=== PATIENT | male | born 1975 | race African-American/Black ===

== ENCOUNTER 2016-03-31 17:03 | Inpatient (IN) | payer BC, MEDICAID ==
[~2016-03-31] VITALS: Ht 180.3 cm; Wt 81.6 kg
[2016-03-31] MEDS ORDERED: IV SET PRIMARY 1 EA INFUS.SET MC ONE ×2 (17:47→22:41)
[2016-03-31] MEDS ORDERED: ONDANSETRON HCL/PF 4 MG/2 ML VIAL ONE ×2 (17:47→18:58)
[2016-03-31] MEDS ORDERED: MORPHINE SULFATE INJ 4 MG/ML DISP.SYRIN ONE (17:47)
[2016-03-31] MEDS ORDERED: IV NS 0.9% 1,000 ML ONE ×2 (17:47→22:41)
[2016-03-31 17:50] LABS: BASOPHILS # (AUTO) 0.1 /CMM (0.0-0.2); BASOPHILS % (AUTO) 0.6 % (0.0-2.0); DIFF TOTAL % 100 %; EOSINOPHILS # (AUTO) 0.1 /CMM (0.0-0.7); EOSINOPHILS % (AUTO) 0.4 % (0.0-6.0); HEMATOCRIT 48 % (39-51); HEMOGLOBIN 15.9 g/dL (13.5-17.5); LYMPHOCYTES # (AUTO) 3.5 /CMM (0.8-4.8); LYMPHOCYTES % (AUTO) 22.8 % (20.0-44.0); MEAN CORPUSCULAR HEMOGLOBIN 33 PG (26.0-33.0); MEAN CORPUSCULAR HGB CONC 33 g/dl (31.0-36.0); MEAN CORPUSCULAR VOLUME 99 fL (80-96); MONOCYTES # (AUTO) 1.5 /CMM (0.1-1.30); MONOCYTES % (AUTO) 9.6 % (2.0-12.0); NEUTROPHILS # (AUTO) 10.2 /CMM (1.8-8.9); NEUTROPHILS % (AUTO) 66.6 % (43.0-81.0); PLATELET COUNT (AUTO) 219 /CMM (150-450); RED BLOOD CELL COUNT(AUTO) 4.84 MIL/uL (4.5-6.0); WHITE BLOOD COUNT (AUTO) 15.4 K/uL (4.3-11.0)
[2016-03-31] MEDS ORDERED: ONDANSETRON HCL/PF 4 MG/2 ML VIAL IVP ONE (18:00)
[2016-03-31] MEDS ORDERED: MORPHINE SULFATE INJ 2 MG/ML DISP.SYRIN IV ONE (18:00)
[2016-03-31] MEDS ORDERED: IV NS 0.9% 1,000 ML BAG IV ONE ×2 (18:00→23:00)
[2016-03-31 18:11] LABS: CALCIUM, SERUM 9.2 mg/dL (8.5-10.1); CREATININE 1.1 mg/dL (0.6-1.3); POTASSIUM 3.7 mmol/L (3.5-5.1)
[2016-03-31 18:18] LABS: ALBUMIN 4.4 g/dL (3.4-5.0); BILIRUBIN,DIRECT 0.2 mg/dL (0.0-0.2); BILIRUBIN,TOTAL 0.6 mg/dL (0.2-1.0); INDIRECT BILIRUBIN 0.4 mg/dL (0.0-1.1); TOTAL PROTEIN, SERUM 8.5 g/dL (6.4-8.2)
[2016-03-31] MEDS ORDERED: MORPHINE SULFATE INJ 2 MG/ML DISP.SYRIN ONE (18:18)
[2016-03-31] MEDS ORDERED: HYDROMORPHONE 1 MG/1 ML DISP.SYRIN ONE ×2 (18:57→22:16)
[2016-03-31] MEDS ORDERED: HYDR-3326 PO (18:58)
[2016-03-31] MEDS ORDERED: TRAZ-144 PO (18:58)
[2016-03-31] MEDS ORDERED: HYDROMORPHONE 1 MG/1 ML DISP.SYRIN IV ONE ×2 (19:00→22:30)
[2016-03-31] MEDS ORDERED: ONDANSETRON HCL/PF 4 MG/2 ML VIAL IV ONE (19:00)
[2016-03-31] MEDS ORDERED: LORAZEPAM INJ 2 MG/ML VIAL ONE (22:42)
[2016-03-31] MEDS ORDERED: LORAZEPAM INJ 2 MG/ML VIAL IV ONE (23:00)
[2016-04-01] MEDS ORDERED: hydrALAZINE HCL IV 20 MG VIAL ONE (00:38)
[2016-04-01] MEDS ORDERED: LORAZEPAM INJ 2 MG/ML VIAL ONE ×3 (00:39→03:02)
[2016-04-01] MEDS ORDERED: hydrALAZINE HCL IV 20 MG VIAL IV ONE (01:00)
[2016-04-01] MEDS ORDERED: LORAZEPAM INJ 2 MG/ML VIAL IV ONE ×3 (01:00→03:30)
[2016-04-01] MEDS ORDERED: AMLODIPINE BESYLATE 5 MG TABLET ONE (01:51)
[2016-04-01] MEDS ORDERED: AMLODIPINE BESYLATE 5 MG TABLET PO ONE (02:00)
[2016-04-01] MEDS ORDERED: HALOPERIDOL LACTATE INJ 5 MG/ML VIAL IM ONE (03:00)
[2016-04-01] MEDS ORDERED: HALOPERIDOL LACTATE INJ 5 MG/ML VIAL ONE (03:02)
[2016-04-01] MEDS ORDERED: MORPHINE SULFATE INJ 2 MG/ML DISP.SYRIN IV ONE (03:30)
[2016-04-01] MEDS ORDERED: ONDANSETRON HCL/PF 4 MG/2 ML VIAL IVP ONE (03:30)
[2016-04-01] MEDS ORDERED: IV NS 0.9% 1,000 ML BAG IV ONE ×2 (03:30→04:00)
[2016-04-01] MEDS ORDERED: IV NS 0.9% 1,000 ML ONE ×2 (04:03→08:25)
[2016-04-01] MEDS ORDERED: IV SET PRIMARY 1 EA INFUS.SET MC ONE (04:03)
[2016-04-01] MEDS ORDERED: HYDROCODONE/APAP 5/325MG 1 EACH TABLET PO PRN (05:00)
[2016-04-01] MEDS ORDERED: ACETAMINOPHEN 325 MG TABLET PO PRN (05:00)
[2016-04-01] MEDS ORDERED: MAGNESIUM HYDROXIDE 30 ML UDC PO PRN (05:00)
[2016-04-01] MEDS ORDERED: IV NS 0.9% 1,000 ML IV ONE (05:00)
[2016-04-01] MEDS ORDERED: Z GUARD REMEDY 2 OZ OINT TP PRN (05:00)
[2016-04-01] MEDS ORDERED: ONDANSETRON HCL/PF 4 MG/2 ML VIAL IVP PRN (05:00)
[2016-04-01] MEDS ORDERED: MAG HYDROX/AL HYDROX/SIMETH 30 ML UDC PO PRN (05:00)
[2016-04-01] MEDS ORDERED: ZOLPIDEM TARTRATE 5 MG TABLET PO PRN (05:00)
[2016-04-01] MEDS ORDERED: LORAZEPAM INJ 2 MG/ML VIAL IV PRN (05:00)
[2016-04-01] MEDS ORDERED: HYDROMORPHONE 1 MG/1 ML DISP.SYRIN ONE ×2 (05:07→14:41)
[2016-04-01] MEDS ORDERED: HYDROMORPHONE 1 MG/1 ML DISP.SYRIN IV ONE ×2 (05:30→15:00)
[2016-04-01] MEDS ORDERED: IV SET PRIMARY PUMP SET 1 EA INFUS.SET MC ONE (08:25)
[2016-04-01 09:07] LABS: KETONES,URINE NEGATIVE (NEGATIVE); LEUKOCYTE ESTERASE ,URINE NEGATIVE (NEGATIVE)
[2016-04-01 09:23] LABS: ADD UA MICROSCOPIC YES
[2016-04-01 09:42] LABS: ADD URINE CULTURE NO; WBC,URINE NONE SEEN /HPF (0-3)
[2016-04-01 09:43] LABS: MUCUS,URINE Rare /LPF (None Seen)
[2016-04-01] MEDS ORDERED: LISINOPRIL (20MG) 20 MG TABLET PO SCH (15:00)
[2016-04-01 20:00] VITALS: BP 136/92
[2016-04-01] MEDS: MORPHINE SULFATE INJ 2 MG/ML DISP.SYRIN IV PRN (21:42)
[2016-04-01] MEDS: TRAZODONE 50 MG TABLET PO SCH (22:49)
[2016-04-02] VITALS (7 sets, daily range): BP systolic 120–148; BP diastolic 69–90
[2016-04-02] MEDS ORDERED: IV NS 0.9% 1,000 ML ONE ×2 (02:42→20:56)
[2016-04-02] MEDS ORDERED: IV SET PRIMARY PUMP SET 1 EA INFUS.SET MC ONE ×2 (02:42→20:56)
[2016-04-02] MEDS ORDERED: IV NS 0.9% 1,000 ML BAG IV SCH (03:00)
[2016-04-02] MEDS ORDERED: IV NS 0.9% 500 ML IV ONE (03:00)
[2016-04-02] MEDS ORDERED: ATENOLOL 25 MG TABLET ONE (04:04)
[2016-04-02] MEDS: ATENOLOL 25 MG TABLET PO SCH ×2 (04:12→09:00)
[2016-04-02 07:39] LABS: BASOPHILS % (AUTO) 0.1 % (0.0-2.0); DIFF TOTAL % 100 %; EOSINOPHILS # (AUTO) 0.1 /CMM (0.0-0.7); EOSINOPHILS % (AUTO) 0.3 % (0.0-6.0); HEMATOCRIT 44 % (39-51); HEMOGLOBIN 14.5 g/dL (13.5-17.5); LYMPHOCYTES % (AUTO) 4.4 % (20.0-44.0); MEAN CORPUSCULAR HEMOGLOBIN 32 PG (26.0-33.0); MEAN CORPUSCULAR HGB CONC 33 g/dl (31.0-36.0); MEAN CORPUSCULAR VOLUME 97 fL (80-96); MONOCYTES # (AUTO) 1.1 /CMM (0.1-1.30); MONOCYTES % (AUTO) 4.8 % (2.0-12.0); NEUTROPHILS # (AUTO) 21.4 /CMM (1.8-8.9); NEUTROPHILS % (AUTO) 90.4 % (43.0-81.0); PLATELET COUNT (AUTO) 138 /CMM (150-450); WHITE BLOOD COUNT (AUTO) 23.6 K/uL (4.3-11.0)
[2016-04-02 08:09] LABS: CALCIUM, SERUM 8.4 mg/dL (8.5-10.1); CREATININE 1.5 mg/dL (0.6-1.3); PHOSPHORUS 2.7 mg/dL (2.5-4.9); POTASSIUM 3.6 mmol/L (3.5-5.1)
[2016-04-02] MEDS ORDERED: SECONDARY IV SET 1 EA INFUS.SET MC ONE (12:42)
[2016-04-02] MEDS: Magnesium 1GM/D5W 100ML PREMIX 100 ML IV SCH ×2 (13:40→14:59)
[2016-04-02] MEDS: MORPHINE SULFATE INJ 2 MG/ML DISP.SYRIN IV PRN (20:04)
[2016-04-02] MEDS: TRAZODONE 50 MG TABLET PO SCH (21:08)
[2016-04-02] MEDS: IV NS 0.9% 1,000 ML IV SCH (21:08)
[2016-04-03] VITALS (8 sets, daily range): BP systolic 115–127; BP diastolic 74–84
[2016-04-03] MEDS ORDERED: IV NS 0.9% 1,000 ML ONE (06:55)
[2016-04-03] MEDS: IV NS 0.9% 1,000 ML IV SCH ×2 (07:00→17:23)
[2016-04-03 07:04] LABS: BASOPHILS % (AUTO) 0.2 % (0.0-2.0); DIFF TOTAL % 100 %; EOSINOPHILS # (AUTO) 0.2 /CMM (0.0-0.7); EOSINOPHILS % (AUTO) 1.1 % (0.0-6.0); HEMATOCRIT 37 % (39-51); HEMOGLOBIN 12.2 g/dL (13.5-17.5); LYMPHOCYTES # (AUTO) 1.5 /CMM (0.8-4.8); MEAN CORPUSCULAR HEMOGLOBIN 32 PG (26.0-33.0); MEAN CORPUSCULAR HGB CONC 33 g/dl (31.0-36.0); MEAN CORPUSCULAR VOLUME 98 fL (80-96); MONOCYTES # (AUTO) 0.7 /CMM (0.1-1.30); MONOCYTES % (AUTO) 4.3 % (2.0-12.0); NEUTROPHILS # (AUTO) 14.5 /CMM (1.8-8.9); NEUTROPHILS % (AUTO) 85.4 % (43.0-81.0); PLATELET COUNT (AUTO) 115 /CMM (150-450); RED BLOOD CELL COUNT(AUTO) 3.76 MIL/uL (4.5-6.0)
[2016-04-03] MEDS: ATENOLOL 25 MG TABLET PO SCH (08:40)
[2016-04-03] MEDS: MORPHINE SULFATE INJ 2 MG/ML DISP.SYRIN IV PRN ×2 (08:49→20:33)
[2016-04-03 09:36] LABS: BAND % (MANUAL) 3 % (0.0-5.0); EOSINOPHILS % (MANUAL) 4 % (0-4); LYMPHOCYTES % (MANUAL) 10 % (16-48); PLATELET ESTIMATE DECREASED
[2016-04-03] MEDS ORDERED: SECONDARY IV SET 1 EA INFUS.SET MC ONE (11:04)
[2016-04-03] MEDS: Magnesium 1GM/D5W 100ML PREMIX 100 ML IV SCH ×2 (11:12→12:37)
[2016-04-03] MEDS ORDERED: Magnesium 1GM/D5W 100ML PREMIX 100 ML IV SCH (13:00)
[2016-04-03] MEDS: TRAZODONE 50 MG TABLET PO SCH (22:29)
[2016-04-04 00:20] VITALS: BP 148/87
[2016-04-04] MEDS: IV NS 0.9% 1,000 ML IV SCH ×2 (03:00→13:00)
[2016-04-04 04:24] VITALS: BP 125/76
[2016-04-04 06:59] VITALS: BP 128/83
[2016-04-04 08:04] VITALS: BP 129/83
[2016-04-04] MEDS: ATENOLOL 25 MG TABLET PO SCH (08:04)
== END 2016-04-04 15:33 | disposition home or self-care (01) | DRG 282 ==
LOC: ER 17:06 → TELE 04-01 15:13
PROVIDERS: ADMIT Family Medicine; ATTEND Family Medicine
DX: K85.20 Alcohol induced acute pancreatitis without necrosis or infection (principal); D69.6 Thrombocytopenia, unspecified; E78.5 Hyperlipidemia, unspecified; F10.10 Alcohol abuse, uncomplicated; E83.42 Hypomagnesemia; F17.210 Nicotine dependence, cigarettes, uncomplicated; I10 Essential (primary) hypertension; Z90.49 Acquired absence of other specified parts of digestive tract; D72.829 Elevated white blood cell count, unspecified; Z71.41 Alcohol abuse counseling and surveillance of alcoholic
CPT/HCPCS: 36415; 80048-TC; 80061-TC; 80076-TC; 81000-TC; 83690-TC; 83735-TC; 84100-TC; 85025-TC; 87040-TC; 87081-TC; A4606; J0360; J1170; J1630; J2060; J2270; J2405; J3475; J7030; J7040; Z7610

== ENCOUNTER 2016-08-18 17:41 | Inpatient (IN) | payer MEDICAID ==
[~2016-08-18] VITALS: Ht 177.8 cm; Wt 76.7 kg
[~2016-08-18 17:41] MED LIST: TRAZ-144 PO
--- NOTE | 2016-08-18 17:50 | NUR ---
PT BIBA FOR MID ABD PAIN WITH N/V SINCE 399 TODAY. REPORTS ETOH ABUSE, HISTORY OF PANCREATITIS NOTED. AAOX3. HVAC ENGINEERING TECHNICIAN AT BS FOR EVAL. VSS. SAFETY AND COMFORT MEASURES PROVIDED. WILL MONITOR.
[2016-08-18] MEDS ORDERED: ONDANSETRON HCL/PF 4 MG/2 ML VIAL ONE (17:51)
[2016-08-18] MEDS ORDERED: IV NS 0.9% 1,000 ML ONE (17:51)
[2016-08-18] MEDS ORDERED: IV SET PRIMARY 1 EA INFUS.SET MC ONE (17:51)
[2016-08-18] MEDS ORDERED: HYDROMORPHONE 1 MG/1 ML DISP.SYRIN ONE (17:51)
[2016-08-18 17:56] LABS: BASOPHILS # (AUTO) 0.1 /CMM (0.0-0.2); BASOPHILS % (AUTO) 0.5 % (0.0-2.0); EOSINOPHILS % (AUTO) 0.1 % (0.0-6.0); HEMATOCRIT 46 % (39-51); HEMOGLOBIN 15.5 g/dL (13.5-17.5); LYMPHOCYTES # (AUTO) 0.5 /CMM (0.8-4.8); LYMPHOCYTES % (AUTO) 2.3 % (20.0-44.0); MEAN CORPUSCULAR HEMOGLOBIN 32 PG (26.0-33.0); MEAN CORPUSCULAR HGB CONC 34 g/dl (31.0-36.0); MEAN CORPUSCULAR VOLUME 95 fL (80-96); MONOCYTES # (AUTO) 0.6 /CMM (0.1-1.30); MONOCYTES % (AUTO) 2.8 % (2.0-12.0); NEUTROPHILS # (AUTO) 20.4 /CMM (1.8-8.9); NEUTROPHILS % (AUTO) 94.3 % (43.0-81.0); PLATELET COUNT (AUTO) 179 /CMM (150-450); RDW COEFFICIENT OF VARIATION 13.2 (11.5-15.0); RED BLOOD CELL COUNT(AUTO) 4.79 MIL/uL (4.5-6.0); WHITE BLOOD COUNT (AUTO) 21.6 K/uL (4.3-11.0)
[2016-08-18] MEDS ORDERED: IV NS 0.9% 1,000 ML BAG IV ONE (18:00)
[2016-08-18] MEDS ORDERED: ONDANSETRON HCL/PF 4 MG/2 ML VIAL IVP ONE (18:00)
[2016-08-18] MEDS ORDERED: HYDROMORPHONE INJ 2 MG/ML DISP.SYRIN IV ONE (18:00)
--- NOTE | 2016-08-18 18:00 | NUR ---
IV ACCESS STARTED, BLOOD DRAWN FOR LABS. PT MEDICATED ORDERED.
[2016-08-18 18:03] LABS: CALCIUM, SERUM 9.3 mg/dL (8.5-10.1); CREATININE 1.3 mg/dL (0.6-1.3)
[2016-08-18 18:10] LABS: ALBUMIN 4.2 g/dL (3.4-5.0); BILIRUBIN,DIRECT 0.8 mg/dL (0.0-0.2); TOTAL PROTEIN, SERUM 8.4 g/dL (6.4-8.2)
--- NOTE | 2016-08-18 18:28 | NUR ---
EPIC PAGED, PROFESSOR OF NURSING
--- NOTE | 2016-08-18 18:28 | NUR ---
CALLED NURSING SUP. FOR MS BED
[2016-08-18] MEDS ORDERED: IBUP-1482 PO (18:30)
[2016-08-18] MEDS ORDERED: TRAM50TA2 PO (18:30)
[2016-08-18] MEDS ORDERED: Magnesium 1GM/D5W 100ML PREMIX 200 ML IV ONE (18:32)
[2016-08-18] MEDS ORDERED: IV SET PRIMARY PUMP SET 1 EA INFUS.SET MC ONE ×2 (18:32→20:17)
[2016-08-18] MEDS: Magnesium 1GM/D5W 100ML PREMIX 100 ML IV SCH ×2 (18:40→20:23)
[2016-08-18 18:51] LABS: APPEARANCE,URINE Clear (CLEAR); BILIRUBIN,URINE SMALL (NEGATIVE); BLOOD, URINE Small Ery/uL (NEGATIVE); COLOR,URINE Yellow (YELLOW); KETONES,URINE Negative (NEGATIVE); LEUKOCYTE ESTERASE ,URINE Negative (NEGATIVE); NITRITE, URINE Negative (NEGATIVE); PROTEIN,URINE >=300 mg/dl (NEGATIVE); UGLUCOSE Negative (NEGATIVE); UROBILINOGEN,URINE 0.2 EU/dL (0.2)
--- NOTE | 2016-08-18 18:52 | NUR ---
REPORT GIVEN TO YOU MOULTON FOR MS ROOM 315
[2016-08-18] MEDS ORDERED: LORAZEPAM INJ 2 MG/ML VIAL IV PRN (19:00)
[2016-08-18] MEDS ORDERED: Z GUARD REMEDY 2 OZ OINT TP PRN (19:00)
[2016-08-18] MEDS ORDERED: MAG HYDROX/AL HYDROX/SIMETH 30 ML UDC PO PRN (19:00)
[2016-08-18] MEDS ORDERED: MAGNESIUM HYDROXIDE 30 ML UDC PO PRN (19:00)
[2016-08-18] MEDS ORDERED: ONDANSETRON HCL/PF 4 MG/2 ML VIAL IVP PRN (19:00)
[2016-08-18] MEDS ORDERED: ENOXAPARIN SODIUM 40 MG/0.4 ML DISP.SYRIN SQ SCH (19:00)
[2016-08-18 19:05] LABS: BACTERIA,URINE Few /HPF (None Seen); SQUAMOUS EPITHELIAL CELL,UR Few /HPF (None Seen)
[2016-08-18 20:00] VITALS: BP 194/118
--- NOTE | 2016-08-18 20:00 | NUR ---
RN NOTES RECEIVED PATIENT FROM ER FOR DX OF PANCREATITIS. AO X 3, ABLE TO MAKE NEEDS KNOWN. NO ACUTE DISTRESS NOTED. LEFT AC GAUGE 18 IV SITE PATENT, INTACT; FLUSHED. SKIN INTACT. ON LOW BED WITH BILATERAL UPPER SIDE RAILS UP. CALL LIGHT WITHIN EASY REACH. WILL CARRY OUT ADMISSION ORDERS. WILL CONTINUE TO MONITOR.
[2016-08-18] MEDS: HYDROMORPHONE INJ 2 MG/ML DISP.SYRIN IV PRN (20:13)
[2016-08-18] MEDS ORDERED: SECONDARY IV SET 1 EA INFUS.SET MC ONE (20:17)
[2016-08-18] MEDS: IV NS 0.9% 1,000 ML IV PRN (20:22)
[2016-08-18] MEDS: ENOXAPARIN SODIUM 40 MG/0.4 ML DISP.SYRIN SQ SCH (20:42)
[2016-08-18] MEDS: HYDROCODONE/APAP 5/325MG 1 EACH TABLET PO PRN (21:07)
[2016-08-18] MEDS: ZOLPIDEM TARTRATE 5 MG TABLET PO PRN (22:30)
[2016-08-19] VITALS: BP 155/94
[2016-08-19] MEDS ORDERED: PIPERACILLIN /TAZOBACTAM 4.5 G in IV D5W 50 ML IV SCH ×2
[2016-08-19] MEDS: PIPERACILLIN /TAZOBACTAM 3.375 G in IV D5W 50 ML IV SCH ×5 (00:28→23:25)
[2016-08-19] MEDS: IV NS 0.9% 1,000 ML IV PRN ×3 (03:53→23:25)
[2016-08-19 04:00] VITALS: BP 168/101
[2016-08-19] MEDS: HYDROCODONE/APAP 5/325MG 1 EACH TABLET PO PRN ×2 (04:58→09:29)
--- NOTE | 2016-08-19 06:14 | NUR ---
RN NOTES PATIENT IN BED ASLEEP, EASILY AROUSABLE. RESPIRATIONS EVEN. DUE MEDS GIVEN. SAFETY PRECAUTIONS AND COMFORT MEASURES IN PLACE. WILL GIVE REPORT TO DAY SHIFT FOR CONTINUITY OF CARE.
[2016-08-19 06:44] LABS: EOSINOPHILS % (AUTO) 0.2 % (0.0-6.0); HEMATOCRIT 41 % (39-51); HEMOGLOBIN 13.5 g/dL (13.5-17.5); LYMPHOCYTES # (AUTO) 0.9 /CMM (0.8-4.8); LYMPHOCYTES % (AUTO) 5.4 % (20.0-44.0); MEAN CORPUSCULAR HEMOGLOBIN 31 PG (26.0-33.0); MEAN CORPUSCULAR HGB CONC 33 g/dl (31.0-36.0); MEAN CORPUSCULAR VOLUME 95 fL (80-96); MONOCYTES # (AUTO) 0.7 /CMM (0.1-1.30); MONOCYTES % (AUTO) 3.9 % (2.0-12.0); NEUTROPHILS # (AUTO) 15.4 /CMM (1.8-8.9); NEUTROPHILS % (AUTO) 90.5 % (43.0-81.0); PLATELET COUNT (AUTO) 143 /CMM (150-450); RDW COEFFICIENT OF VARIATION 14.3 (11.5-15.0); RED BLOOD CELL COUNT(AUTO) 4.34 MIL/uL (4.5-6.0)
[2016-08-19 06:49] LABS: CALCIUM, SERUM 8.3 mg/dL (8.5-10.1); MAGNESIUM 2.4 mg/dL (1.8-2.4); PHOSPHORUS 3.2 mg/dL (2.5-4.9); POTASSIUM 3.9 mmol/L (3.5-5.1)
[2016-08-19 08:00] VITALS: BP 162/98
--- NOTE | 2016-08-19 08:00 | NUR ---
ON ROUNDS RECEIVED PT.ALERT AND ORIENTED X3.IV INFUSING.VS STABLE.
[2016-08-19] MEDS: AMLODIPINE BESYLATE 10 MG TABLET PO SCH (08:50)
[2016-08-19] MEDS: PANTOPRAZOLE 40 MG TABLET.DR PO SCH (08:50)
--- NOTE | 2016-08-19 09:29 | NUR ---
MEDICATED FOR PAIN WITH NORCO.
[2016-08-19 12:00] VITALS: BP 153/93
--- NOTE | 2016-08-19 12:30 | NUR ---
IN TO VISIT MOST OF DAY.
--- NOTE | 2016-08-19 14:30 | NUR ---
DOWN TO SMOKE SEVERAL TIMES THIS SHIFT WITH STAFF MEMBER.
[2016-08-19 16:00] VITALS: BP 150/97
--- NOTE | 2016-08-19 18:15 | NUR ---
RECEIVED CALL FROM LAB THAT PT. ON BLOOD CULTURE-SHOWS ON GRAM STAIN GRAM NEGATIVE RODS.PROFESSOR OF COUNSELING INFORMED.PT. CURRENTLY ON [place].
--- NOTE | 2016-08-19 19:30 | NUR ---
RN NOTES RECEIVED PATIENT IN BED, AWAKE. AO X 3, ABLE TO MAKE NEEDS KNOWN, COOPERATIVE. NO ACUTE DISTRESS NOTED. IV SITE PATENT, INTACT; IVF INFUSING ORDERED. ABDOMINAL PAIN TOLERABLE AT THIS TIME PER PATIENT; REFUSED PAIN MEDICATION. ON LOW BED WITH BILATERAL UPPER SIDE RAILS UP. CALL LIGHT WITHIN EASY REACH. WILL CONTINUE TO MONITOR.
[2016-08-19 20:00] VITALS: BP 107/69
[2016-08-19] MEDS: ENOXAPARIN SODIUM 40 MG/0.4 ML DISP.SYRIN SQ SCH (21:13)
[2016-08-20] MEDS: HYDROMORPHONE INJ 2 MG/ML DISP.SYRIN IV PRN (05:05)
[2016-08-20] MEDS: PIPERACILLIN /TAZOBACTAM 3.375 G in IV D5W 50 ML IV SCH ×4 (05:05→23:12)
[2016-08-20] MEDS: IV NS 0.9% 1,000 ML IV PRN ×2 (06:03→22:25)
--- NOTE | 2016-08-20 07:07 | NUR ---
RN NOTES PATIENT AWAKE. NO ACUTE DISTRESS NOTED. DUE MEDS GIVEN. SAFETY PRECAUTIONS AND COMFORT MEASURES IN PLACE. WILL GIVE REPORT TO DAY SHIFT FOR CONTINUITY OF CARE.
[2016-08-20 08:00] VITALS: BP 136/81
--- NOTE | 2016-08-20 08:00 | NUR ---
MS RN NOTES RECEIVED REPORT WITH PATIENT RESTING IN BED. PATIENT IS A/OX4. NO SOB NOTED. NO ACUTE DISTRESS NOTED. PATIENT DENIES PAIN AT THIS TIME. IV IS PATENT AND INTACT. CALL LIGHT IS WITHIN REACH. BED IS IN LOW LOCKED POSITION. WILL CONTINUE TO MONITOR THROUGHOUT SHIFT.
[2016-08-20] MEDS: AMLODIPINE BESYLATE 10 MG TABLET PO SCH (08:23)
[2016-08-20] MEDS: PANTOPRAZOLE 40 MG TABLET.DR PO SCH (08:23)
[2016-08-20] MEDS: HYDROCODONE/APAP 5/325MG 1 EACH TABLET PO PRN ×2 (12:56→17:12)
[2016-08-20 14:59] LABS: BASOPHILS % (AUTO) 0.1 % (0.0-2.0); EOSINOPHILS # (AUTO) 0.3 /CMM (0.0-0.7); EOSINOPHILS % (AUTO) 1.9 % (0.0-6.0); HEMATOCRIT 36 % (39-51); HEMOGLOBIN 12.1 g/dL (13.5-17.5); LYMPHOCYTES # (AUTO) 0.9 /CMM (0.8-4.8); LYMPHOCYTES % (AUTO) 6.3 % (20.0-44.0); MEAN CORPUSCULAR HEMOGLOBIN 32 PG (26.0-33.0); MEAN CORPUSCULAR HGB CONC 34 g/dl (31.0-36.0); MEAN CORPUSCULAR VOLUME 94 fL (80-96); MONOCYTES # (AUTO) 0.8 /CMM (0.1-1.30); MONOCYTES % (AUTO) 5.4 % (2.0-12.0); NEUTROPHILS # (AUTO) 12.2 /CMM (1.8-8.9); NEUTROPHILS % (AUTO) 86.3 % (43.0-81.0); PLATELET COUNT (AUTO) 106 /CMM (150-450); RDW COEFFICIENT OF VARIATION 14.7 (11.5-15.0); RED BLOOD CELL COUNT(AUTO) 3.83 MIL/uL (4.5-6.0); WHITE BLOOD COUNT (AUTO) 14.1 K/uL (4.3-11.0)
[2016-08-20 15:19] LABS: CALCIUM, SERUM 8.6 mg/dL (8.5-10.1); POTASSIUM 3.7 mmol/L (3.5-5.1)
[2016-08-20 16:00] VITALS: BP_SYST 130; BP_SYST 132; BP_DIAS 78; BP_DIAS 80
[2016-08-20 19:13] LABS: EOSINOPHILS % (MANUAL) 3 % (0-4); LYMPHOCYTES % (MANUAL) 8 % (16-48); MONOCYTES % (MANUAL) 5 % (0-11.0); NEUTROPHILS % (MANUAL) 84 (42-76)
--- NOTE | 2016-08-20 19:15 | NUR ---
MS RN NOTES PATIENT IS IN BED RESTING. PATIENT IS A/OX4. PATIENT DENIES ANY PAIN AT THIS TIME. NO SOB OR S/S OF ACUTE DISTRESS NOTED. IV IS PATENT AND INTACT. BED IS IN LOW LOCKED POSITION. CALL LIGHT WITHIN REACH. WILL ENDORSE CARE TO PM SHIFT.
--- NOTE | 2016-08-20 19:30 | NUR ---
MS RN NOTE RECEIVED PATIENT FROM DAY SHIFT, PATIENT IS ALERT AND ORIENTEDX4, DENIES RESPIRATORY DISTRESS AND COMPLAINS OF MODERATE ABDOMINAL PAIN DUE TO PANCREATITIS. AMBULATORY, IV ON LEFT FA IS PATENT AND INTACT, NS 200ML/HR IS RUNNING. SRX2, BED IN LOW POSITION, CALL LIGHT WITHIN REACH, WILL CONTINUE TO MONITOR PATIENT.
[2016-08-20 20:00] VITALS: BP 149/88
[2016-08-20] MEDS: ACETAMINOPHEN 325 MG TABLET PO PRN (20:33)
--- NOTE | 2016-08-20 20:34 | NUR ---
MS RN NOTE PATIENT'S TEMP WAS 99.9F, COMPLAINS OF MILD ABDOMINAL PAIN. TYLENOL PO GIVEN. WILL MONITOR EFFECTIVENESS.
[2016-08-20] MEDS: ENOXAPARIN SODIUM 40 MG/0.4 ML DISP.SYRIN SQ SCH (20:55)
--- NOTE | 2016-08-20 22:30 | NUR ---
MS RN NOTE RECHECKED HIS TEMP 99.0F. PATIENT STATED I FEEL BETTER.
[2016-08-21] MEDS: IV NS 0.9% 1,000 ML IV PRN (04:22)
--- NOTE | 2016-08-21 05:40 | NUR ---
MS RN NOT PATIENT COMPLAINS OF PAIN ON ABDOMEN 10/09, NORCO 5-325MG PO GIVEN. WILL MONITOR FOR EFFECTIVENESS.
[2016-08-21] MEDS: PIPERACILLIN /TAZOBACTAM 3.375 G in IV D5W 50 ML IV SCH ×3 (05:44→18:49)
[2016-08-21] MEDS: HYDROCODONE/APAP 5/325MG 1 EACH TABLET PO PRN ×2 (05:47→17:53)
--- NOTE | 2016-08-21 06:53 | NUR ---
MS RN NOTE PATIENT IS RESTING ON BED COMFORTABLY, NO ACUTE DISTRESS NOTED DURING THE 1ST GRADE TEACHER. IV ON LEFT FA IS PATENT AND INTACT, FLUID IS RUNNING. WILL ENDORSE TO DAY SHIFT NURSE FOR ANTONY.
[2016-08-21] MEDS ORDERED: IV NS 0.9% 1,000 ML IV PRN (06:55)
[2016-08-21 07:12] LABS: BASOPHILS % (AUTO) 0.3 % (0.0-2.0); EOSINOPHILS # (AUTO) 0.3 /CMM (0.0-0.7); HEMATOCRIT 38 % (39-51); HEMOGLOBIN 12.7 g/dL (13.5-17.5); LYMPHOCYTES # (AUTO) 1.6 /CMM (0.8-4.8); LYMPHOCYTES % (AUTO) 11.5 % (20.0-44.0); MEAN CORPUSCULAR HEMOGLOBIN 32 PG (26.0-33.0); MEAN CORPUSCULAR HGB CONC 33 g/dl (31.0-36.0); MEAN CORPUSCULAR VOLUME 95 fL (80-96); MONOCYTES # (AUTO) 1.3 /CMM (0.1-1.30); MONOCYTES % (AUTO) 9.4 % (2.0-12.0); NEUTROPHILS # (AUTO) 10.9 /CMM (1.8-8.9); NEUTROPHILS % (AUTO) 76.8 % (43.0-81.0); PLATELET COUNT (AUTO) 114 /CMM (150-450); RDW COEFFICIENT OF VARIATION 14.5 (11.5-15.0); RED BLOOD CELL COUNT(AUTO) 4.01 MIL/uL (4.5-6.0); WHITE BLOOD COUNT (AUTO) 14.1 K/uL (4.3-11.0)
[2016-08-21 07:23] LABS: CALCIUM, SERUM 8.8 mg/dL (8.5-10.1); CREATININE 0.9 mg/dL (0.6-1.3); MAGNESIUM 1.7 mg/dL (1.8-2.4); POTASSIUM 3.3 mmol/L (3.5-5.1)
--- NOTE | 2016-08-21 07:46 | NUR ---
RN OPENING NOTES RECEIVED PATIENT IN BED, ASLEEP, EASY TO AROUSE, HEAD OF BED ELEVATED. WILL CONTINUE TO MONITOR ACCORDINGLY.
[2016-08-21 08:00] VITALS: BP 141/97
[2016-08-21] MEDS: AMLODIPINE BESYLATE 10 MG TABLET PO SCH (08:21)
[2016-08-21] MEDS: PANTOPRAZOLE 40 MG TABLET.DR PO SCH (08:21)
[2016-08-21] MEDS ORDERED: SECONDARY IV SET 1 EA INFUS.SET MC ONE (10:36)
[2016-08-21] MEDS: Magnesium 1GM/D5W 100ML PREMIX 100 ML IV SCH ×2 (10:41→12:32)
[2016-08-21 11:23] LABS: BAND % (MANUAL) 2 % (0.0-5.0); EOSINOPHILS % (MANUAL) 1 % (0-4); LYMPHOCYTES % (MANUAL) 20 % (16-48); MONOCYTES % (MANUAL) 10 % (0-11.0); NEUTROPHILS % (MANUAL) 67 (42-76)
[2016-08-21] MEDS ORDERED: POTASSIUM CHLORIDE 20 MEQ POWDER PACKET PO SCH (11:30)
[2016-08-21] MEDS: ACETAMINOPHEN 325 MG TABLET PO PRN (12:32)
[2016-08-21 16:00] VITALS: BP 141/81
--- NOTE | 2016-08-21 17:25 | NUR ---
DR. MISTRY PAGED DUE TO PT'S REQUEST THAT HE WANT TO GO HOME.
--- NOTE | 2016-08-21 19:21 | NUR ---
RN CLOSING NOTES ALL NEEDS PROVIDED, ATTENDED AND ANTICIPATED. KEPT PATIENT CLEAN AND COMFORTABLE IN BED, CALL LIGHT WITHIN PATIENT REACH, WILL CONTINUE TO MONITOR ACCORDINGLY. ENDORSED TO NEXT SHIFT RN TO CONTINUE CARE.
--- NOTE | 2016-08-21 19:38 | NUR ---
MS RN NOTE RECEIVED PATIENT FROM DAY SHIFT, PATIENT IS ALERT AND ORIENTEDX4, DENIES RESPIRATORY DISTRESS OR PAIN AT THIS TIME. IV ON LEFT FA IS PATENT AND INTACT, NS IS RUNNING. SRX2, BED IN LOW POSITION, CALL LIGHT WITHIN REACH, WILL CONTINUE TO MONITOR PATIENT.
[2016-08-21 20:00] VITALS: BP 137/61
--- NOTE | 2016-08-21 20:30 | NUR ---
MS RN NOTE DR. MISTRY CALLED BACK, AND DISCUSSED ABOUT HER PLAN OF CARE. KEEP HIM ONE MORE DAY, NO DC TONIGHT AND MONITOR HIS MORNING LAB VALUES AND TEMPERATURE. EXPLAINED TO THE PATIENT WELL, HE VERBALIZED UNDERSTANDING.
[2016-08-21] MEDS: ENOXAPARIN SODIUM 40 MG/0.4 ML DISP.SYRIN SQ SCH (20:51)
[2016-08-21] MEDS: ZOLPIDEM TARTRATE 5 MG TABLET PO PRN (22:32)
[2016-08-22] MEDS: PIPERACILLIN /TAZOBACTAM 3.375 G in IV D5W 50 ML IV SCH ×2 (00:25→05:40)
--- NOTE | 2016-08-22 06:54 | NUR ---
MS RN NOTE PATIENT IS RESTING IN BED COMFORTABLY, NO ACUTE DISTRESS NOTED DURING THE NIGHT. NO S/S OF RESPIRATORY DISTRESS OR PAIN PRESENT. IV ON LEFT FA IS PATENT AND INTACT, NS IS RUNNING. WILL ENDORSE TO DAY SHIFT FOR ANTONY.
[2016-08-22 07:21] LABS: CALCIUM, SERUM 8.9 mg/dL (8.5-10.1); POTASSIUM 3.5 mmol/L (3.5-5.1)
[2016-08-22 08:00] VITALS: BP 129/76
--- NOTE | 2016-08-22 08:05 | NUR ---
RN MS NOTES PATIENT IN BED RESTING COMFORTABLY, IN NO APPARENT DISTRESS, DENIES SOB, DENIES PAIN. ALL NEEDS MET, KEPT CLEAN AND DRY.
[2016-08-22 08:31] VITALS: BP 129/76
[2016-08-22] MEDS: AMLODIPINE BESYLATE 10 MG TABLET PO SCH (08:31)
[2016-08-22] MEDS: PANTOPRAZOLE 40 MG TABLET.DR PO SCH (08:31)
[2016-08-22] MEDS: HYDROCODONE/APAP 5/325MG 1 EACH TABLET PO PRN (08:32)
[2016-08-22] MEDS ORDERED: HYDR-552 PO (09:01)
[2016-08-22] MEDS ORDERED: OMEP40CA37 PO (09:03)
--- NOTE | 2016-08-22 11:20 | NUR ---
RN MS NOTES PT IN BED, AWAKE, ALERT AND ORIENTED, NO COMPLAINT OF PAIN OR ANY DISCOMFORT, BREATHING PATTERN NORMAL AND NOT LABORED, AMBULATES WITH STEADY GAIT, INDEPENDENT WITH ADL'S, SEEN BY SHAHIDA CLIENT RELATIONSHIP EXECUTIVE, DISCHARGE AND MEDICATION INSTRUCTIONS PROVIDED, VERBALIZED UNDERSTANDING, SMOKING CESSATION EDUCATION PROVIDED, PT REFUSED NICOTINE PATCH, PT TO SEE HIS PRIMARY CARE PHYSICIAN, PT VERBALIZED UNDERSTANDING WITH ALL MEDICATION AND DISCHARGE INSTRUCTIONS, BELONGINGS ACCOUNTED FOR, PICKED UP BY FAMILY MEMBER, LEFT IN STABLE CONDITION.
== END 2016-08-22 11:15 | disposition home or self-care (01) | DRG 282 ==
LOC: ER 17:44 → MED 19:01
PROVIDERS: ADMIT Internal Medicine; ATTEND Internal Medicine
DX: K85.90 Acute pancreatitis without necrosis or infection, unspecified (principal); D69.59 Other secondary thrombocytopenia; R65.10 Systemic inflammatory response syndrome (SIRS) of non-infectious origin without acute organ dysfunction; D69.6 Thrombocytopenia, unspecified; E83.42 Hypomagnesemia; F10.10 Alcohol abuse, uncomplicated; E78.5 Hyperlipidemia, unspecified; Z90.49 Acquired absence of other specified parts of digestive tract; F17.210 Nicotine dependence, cigarettes, uncomplicated; I10 Essential (primary) hypertension; K21.9 Gastro-esophageal reflux disease without esophagitis; D72.829 Elevated white blood cell count, unspecified
CPT/HCPCS: 36415; 80048-TC; 80061-TC; 80076-TC; 81000-TC; 83690-TC; 83735-TC; 84100-TC; 85025-TC; 87040-TC; 87081-TC; 87186-TC; A4606; J1170; J1650; J2060; J2405; J2543; J3475; J7030; J7060; Z7610

== ENCOUNTER 2016-10-11 06:30 | Inpatient (IN) | payer MEDICAID ==
[~2016-10-11] VITALS: Ht 180.3 cm; Wt 69.9 kg
[2016-10-11] VITALS (14 sets, daily range): BP systolic 99–136; BP diastolic 52–86
[~2016-10-11 06:30] MED LIST changes: +HYDR-552 PO; +OMEP40CA37 PO; -TRAZ-144 PO
--- NOTE | 2016-10-11 06:37 | NUR ---
CALLED FOR TRIAGE. INFORMED "WENT OUT TO SMOKE"
[2016-10-11] MEDS ORDERED: IV NS 0.9% 2,000 ML ONE (07:16)
[2016-10-11] MEDS ORDERED: IV SET PRIMARY PUMP SET 1 EA INFUS.SET MC ONE ×4 (07:16→20:48)
--- NOTE | 2016-10-11 07:20 | NUR ---
IV ACCESS STARTED BY SWAPNIL SPIRAL WINDER RN. PT MEDICATED ORDERED.
[2016-10-11] MEDS: IV NS 0.9% 1,000 ML BAG IV ONE ×2 (07:28→07:42)
[2016-10-11 07:30] LABS: APPEARANCE,URINE CLEAR (CLEAR); BILIRUBIN,URINE NEGATIVE (NEGATIVE); BLOOD, URINE NEGATIVE Ery/uL (NEGATIVE); COLOR,URINE YELLOW (YELLOW); KETONES,URINE NEGATIVE (NEGATIVE); LEUKOCYTE ESTERASE ,URINE NEGATIVE (NEGATIVE); NITRITE, URINE NEGATIVE (NEGATIVE); PH,URINE 6.5 (5.0-8.0); PROTEIN,URINE NEGATIVE (NEGATIVE); UGLUCOSE 3+ mg/dL (NEGATIVE); UROBILINOGEN,URINE 0.2 EU/dL (0.2)
[2016-10-11] MEDS ORDERED: IV NS 0.9% 1,000 ML BAG IV ONE (07:30)
--- NOTE | 2016-10-11 07:30 | NUR ---
PT CAME IN WITH C/O FATIGUE, DRY MOUTH, AND DIZZINESS X COUPLE OF DAYS. HE SAID HE WENT TO THE DOCTOR FOR SOME TESTS BUT UNSURE WHICH WAS DONE. DENIES HISTORY OF DIABETES. BS NOTED TO BE ABOVE 600 mg/dL. VSS. SEEN BY MD FOR EVAL. SAFETY AND COMFORT MEASURES PROVIDED. WILL MONITOR.
[2016-10-11 07:41] LABS: ABG BASE EXCESS 0.2 mmol/L; ABG OXYGEN SATURATION 78.4 % (92.0-98.5); ABG PCO2 52.6 mmHg (35.0-45.0); ABG PO2 40.8 mmHg (75.0-100.0); COHb 14.2 % (0.5-1.5); MetHb 0.2 % (0.0-1.5); O2Hb 67.1 % (94.0-97.0); VENT MODE, BG room air
--- NOTE | 2016-10-11 07:45 | NUR ---
ROSA ELENA AT BS.
[2016-10-11 07:47] LABS: BASOPHILS % (AUTO) 0.1 % (0.0-2.0); EOSINOPHILS # (AUTO) 0.1 /CMM (0.0-0.7); EOSINOPHILS % (AUTO) 1.3 % (0.0-6.0); HEMATOCRIT 49 % (39-51); HEMOGLOBIN 15.4 g/dL (13.5-17.5); LYMPHOCYTES # (AUTO) 1.3 /CMM (0.8-4.8); LYMPHOCYTES % (AUTO) 16.2 % (20.0-44.0); MEAN CORPUSCULAR HEMOGLOBIN 31 PG (26.0-33.0); MEAN CORPUSCULAR HGB CONC 32 g/dl (31.0-36.0); MEAN CORPUSCULAR VOLUME 98 fL (80-96); MONOCYTES # (AUTO) 0.6 /CMM (0.1-1.30); MONOCYTES % (AUTO) 7.2 % (2.0-12.0); NEUTROPHILS # (AUTO) 5.9 /CMM (1.8-8.9); NEUTROPHILS % (AUTO) 75.2 % (43.0-81.0); PLATELET COUNT (AUTO) 182 /CMM (150-450); RDW COEFFICIENT OF VARIATION 13.1 (11.5-15.0); RED BLOOD CELL COUNT(AUTO) 4.96 MIL/uL (4.5-6.0); WHITE BLOOD COUNT (AUTO) 7.9 K/uL (4.3-11.0)
[2016-10-11] MEDS ORDERED: IV NS 0.9% 1,000 ML IV ONE (08:00)
[2016-10-11 08:06] LABS: ALANINE AMINOTRANSFERASE 41 U/L (12-78); ALBUMIN 4.6 g/dL (3.4-5.0); ALKALINE PHOSPHATASE 192 U/L (46-116); ASPARTATE AMINOTRANSFERASE 33 U/L (15-37); BILIRUBIN,DIRECT 0.2 mg/dL (0.0-0.2); BILIRUBIN,TOTAL 0.6 mg/dL (0.2-1.0); CARBON DIOXIDE 28 mmol/L (21-32); CREATININE 1.8 mg/dL (0.6-1.3); LIPASE 559 U/L (73-393); POTASSIUM 4.4 mmol/L (3.5-5.1); TOTAL PROTEIN, SERUM 9.4 g/dL (6.4-8.2); UREA NITROGEN, BLOOD 12 mg/dL (7-18)
[2016-10-11 08:07] LABS: TROPONIN I < 0.017 ng/mL (0.00-0.056)
[2016-10-11 08:12] LABS: INR 0.97 (0.87-1.13); PROTHROMBIN TIME 10.4 SECS (9.5-12.7)
[2016-10-11 08:20] LABS: SODIUM SERUM 115 mmol/L (136-145)
[2016-10-11 08:21] LABS: CHLORIDE 76 mmol/L (98-107); GLUCOSE 1618 mg/dL (74-106)
[2016-10-11 08:24] LABS: MAGNESIUM 2.6 mg/dL (1.8-2.4); PHOSPHORUS 4.3 mg/dL (2.5-4.9)
--- NOTE | 2016-10-11 08:26 | NUR ---
CALLED [facility] IAM FISHER
[2016-10-11] MEDS ORDERED: INSULIN REGULAR, HUMAN 100 UNIT in IV NS 0.9% 99 ML IV PRN ×4 (08:30→11:00)
[2016-10-11] MEDS ORDERED: IBUP-1619 PO (08:39)
--- NOTE | 2016-10-11 09:04 | NUR ---
CALLED [facility] AGAIN PER
--- NOTE | 2016-10-11 09:30 | NUR ---
DR. FISHER AT BS.
--- NOTE | 2016-10-11 09:51 | NUR ---
REPORT GIVEN TO BARBARA MOULTON FOR 260 ICU.
[2016-10-11] MEDS ORDERED: ACETAMINOPHEN 325 MG TABLET PO PRN (11:00)
[2016-10-11] MEDS ORDERED: MAGNESIUM HYDROXIDE 30 ML UDC PO PRN (11:00)
[2016-10-11] MEDS ORDERED: MAG HYDROX/AL HYDROX/SIMETH 30 ML UDC PO PRN (11:00)
[2016-10-11] MEDS ORDERED: Z GUARD REMEDY 2 OZ OINT TP PRN (11:00)
[2016-10-11] MEDS ORDERED: ONDANSETRON HCL/PF 4 MG/2 ML VIAL IVP PRN (11:00)
[2016-10-11] MEDS ORDERED: ZOLPIDEM TARTRATE 5 MG TABLET PO PRN (11:00)
[2016-10-11] MEDS ORDERED: HYDROCODONE/APAP 5/325MG 1 EACH TABLET PO PRN (11:00)
--- NOTE | 2016-10-11 11:00 | NUR ---
ICU/RN - Notes Pt admitted to ICU with dx Hyperosmolar Hyperglycemia Nonketonic, new onset of Diabetes Mellitus. Pt alert and oriented x3. Respirations are even and unlabored. On room air with o2 saturation 97%. Denies pain or discomfort. On tele reading SR 70's. Pt continent able to use urinal. Skin intact. IVF infusing well and Insulin gtt in process per protocol. Education provided to pt regarding new diagnosis and smoking cessation. Pt verbalized understanding. Safety and comfort measures in place. Will continue to monitor pt closely.
[2016-10-11] MEDS: IV NS 0.9% 1,000 ML IV PRN ×3 (11:09→21:12)
[2016-10-11] MEDS: NICOTINE PATCH (21MG) 21 MG PATCH.TD24 TD SCH (11:09)
[2016-10-11] MEDS ORDERED: DEXTROSE 50%-WATER 50 ML DISP.SYRIN IVP PRN (11:30)
[2016-10-11] MEDS ORDERED: BLOOD SUGAR DIAGNOSTIC 1 EACH STRIP IN SCH (11:30)
[2016-10-11 11:55] LABS: CALCIUM, SERUM 9.7 mg/dL (8.5-10.1); CREATININE 1.3 mg/dL (0.6-1.3); POTASSIUM 3.1 mmol/L (3.5-5.1)
[2016-10-11] MEDS: BLOOD SUGAR DIAGNOSTIC 1 EACH STRIP IN SCH ×11 (12:03→22:20)
[2016-10-11] MEDS: POTASSIUM CL. PREMIX PERIPHER. 50 ML IV SCH ×6 (12:53→22:21)
[2016-10-11 13:42] LABS: ABG BASE EXCESS 0.7 mmol/L; ABG OXYGEN SATURATION 94.4 % (92.0-98.5); ABG PCO2 48.8 mmHg (35.0-45.0); ABG PH 7.359 (7.350-7.450); ABG PO2 75.3 mmHg (75.0-100.0); COHb 7.7 % (0.5-1.5); MetHb 0.6 % (0.0-1.5); O2Hb 86.6 % (94.0-97.0); SITE, ABG Right Radial; VENT MODE, BG ROOM AIR
[2016-10-11 16:40] LABS: POTASSIUM 3.8 mmol/L (3.5-5.1)
[2016-10-11 20:16] LABS: CALCIUM, SERUM 9.2 mg/dL (8.5-10.1); CREATININE 0.9 mg/dL (0.6-1.3); POTASSIUM 3.3 mmol/L (3.5-5.1)
[2016-10-12] VITALS (26 sets, daily range): BP systolic 103–144; BP diastolic 65–99
[2016-10-12 01:02] LABS: CALCIUM, SERUM 9.1 mg/dL (8.5-10.1); CREATININE 0.9 mg/dL (0.6-1.3); POTASSIUM 3.5 mmol/L (3.5-5.1)
[2016-10-12] MEDS: IV NS 0.9% 1,000 ML IV PRN ×2 (02:15→07:13)
[2016-10-12] MEDS: BLOOD SUGAR DIAGNOSTIC 1 EACH STRIP IN SCH ×13 (02:21→22:12)
--- NOTE | 2016-10-12 03:00 | NUR ---
BIOMASS BOILER OPERATOR - REC'D PT. ON INSULIN GTT. W/Q ONE HR. BS'S. DOCUMENTED. NOW AT 3AM, PT. HAS HD 4 CONSECUTIVE BS'S WITHIN 90-150 GLUCOSE RANGE. NOW WE STARTED Q2HR. BS'S. PT.IS RESTING W/EYES CLOSED. A&OX3, VSS. AFEBRILE. PT.IS NPO & USING URINAL. PT.IS ON R/A W/O2 SATS >98%. ALL PULSES PALPABLE X 4 EXT. NO EDEMA. RFA PIV HAS 0.9%NS INFUSING AT 200CC/HR. W/INSULIN GTT. AT ONE UNIT HR. BMP'S DONE Q 4HRS. PT.NEEDE 2 RUNS OF KCL AT21:30 PM. INFUSED ALREADY. SKIN INTACT. PT. HAD FAMILY AT BS LAST NIGHT. PT.HAS GOOD SUPPORT SYSTEM. CONT. POC.
[2016-10-12 04:44] LABS: BASOPHILS % (AUTO) 0.3 % (0.0-2.0); EOSINOPHILS # (AUTO) 0.4 /CMM (0.0-0.7); EOSINOPHILS % (AUTO) 3.9 % (0.0-6.0); HEMATOCRIT 35 % (39-51); HEMOGLOBIN 12.1 g/dL (13.5-17.5); LYMPHOCYTES # (AUTO) 2.8 /CMM (0.8-4.8); LYMPHOCYTES % (AUTO) 28.4 % (20.0-44.0); MEAN CORPUSCULAR HEMOGLOBIN 31 PG (26.0-33.0); MEAN CORPUSCULAR HGB CONC 34 g/dl (31.0-36.0); MEAN CORPUSCULAR VOLUME 91 fL (80-96); MONOCYTES # (AUTO) 0.8 /CMM (0.1-1.30); MONOCYTES % (AUTO) 7.5 % (2.0-12.0); NEUTROPHILS % (AUTO) 59.9 % (43.0-81.0); PLATELET COUNT (AUTO) 186 /CMM (150-450); RDW COEFFICIENT OF VARIATION 12.9 (11.5-15.0); RED BLOOD CELL COUNT(AUTO) 3.87 MIL/uL (4.5-6.0)
[2016-10-12 05:01] LABS: INR 1.01 (0.87-1.13); PROTHROMBIN TIME 10.8 SECS (9.5-12.7)
[2016-10-12 05:04] LABS: ALBUMIN 2.8 g/dL (3.4-5.0); BILIRUBIN,TOTAL 0.3 mg/dL (0.2-1.0); CREATININE 0.8 mg/dL (0.6-1.3); MAGNESIUM 1.8 mg/dL (1.8-2.4); POTASSIUM 3.7 mmol/L (3.5-5.1); TOTAL PROTEIN, SERUM 6.1 g/dL (6.4-8.2)
[2016-10-12] MEDS: PANTOPRAZOLE 40 MG TABLET.DR PO SCH (07:54)
--- NOTE | 2016-10-12 08:00 | NUR ---
CHILD CARE ATTENDANT SCHOOL; ASSESSMENT RECEIVED PT AWAKE AND ORIENTED X4. PT DENIES ANY PAIN AT THIS TIME. PT CONTINUES ON INSULIN DRIP AT 2UNIT/HR PER PROTOCOL. PT CONTINUES ON Q1H ACCU CHECKS AND Q4H BMP. NO ACUTE DISTRESS NOTED. WILL CONTINUE WITH POC. BED SET ON LOW POSITION CALL LIGHT WITH IN REACH.
[2016-10-12] MEDS: NICOTINE PATCH (21MG) 21 MG PATCH.TD24 TD SCH (08:02)
[2016-10-12 09:49] LABS: CALCIUM, SERUM 8.9 mg/dL (8.5-10.1); CREATININE 0.8 mg/dL (0.6-1.3); POTASSIUM 3.9 mmol/L (3.5-5.1)
[2016-10-12] MEDS ORDERED: DEXTROSE 50%-WATER 50 ML DISP.SYRIN IV PRN (10:00)
[2016-10-12] MEDS ORDERED: *INSULIN REGULAR(HUMULIN R)HUM 100 UNIT/ML VIAL SQ PRN (10:00)
[2016-10-12] MEDS ORDERED: IV D5W 1,000 ML IV PRN (10:00)
--- NOTE | 2016-10-12 10:30 | NUR ---
SWITCH MAKER; MD PRIMARY DR. PHILLIP HENNING AT BEDSIDE UPDATED NEW ORDERS GIVEN REGARDING BLOOD SUGARS. NEW ORDERS GIVEN REGRADING D/C OF INSULIN DRIP AND TO CHANGE IVF. OBTAIN ROBINA 20UNITS CLARIFICATION, AND PER DR. FISHER WNATS LEVAMIR TO START AT NIGHT. EVEN THO PT WILL START [id number] IFV. WILL CONTINUE TO MONITOR BLOOD SUGAR AND START AGRESSIVE SLIDING SCALE ORDERED.
[2016-10-12] MEDS: INSULIN REGULAR, HUMAN 100 UNIT/ML 3 ML VIAL SQ PRN ×3 (11:24→21:57)
[2016-10-12] MEDS: IV 1/2NS 1000 ML 1,000 ML IV PRN (15:35)
--- NOTE | 2016-10-12 17:30 | NUR ---
INSULATION BOARD HEAD SAW OPERATOR; ASSISTED PT OOB. PT HAS STEADY GAIT DENIES ANY DIZZINESS. PM CARE DONE. LINEN CHANGED. PT TOLERATED DINNER IN CHAIR. CALL LIGHT WITH IN REACH
--- NOTE | 2016-10-12 20:00 | NUR ---
received pt from day shift, alert, follows commands, SR, RA, sat well, lungs clear, no edema, tolerates diet, urinates in urinal, v/s stable, no pain, pt turns and repositions by himself.
[2016-10-12] MEDS: INSULIN DETEMIR 100 UNIT/ML CARTRIDGE SQ SCH (21:58)
[2016-10-13] VITALS (21 sets, daily range): BP systolic 109–134; BP diastolic 49–82
--- NOTE | 2016-10-13 00:26 | NUR ---
pt is resting in the bed, v/s stable, no pain.
--- NOTE | 2016-10-13 04:00 | NUR ---
pt is resting in the bed, no acute distress overnight, v/s stable, no pain.
[2016-10-13 04:29] LABS: BASOPHILS % (AUTO) 0.4 % (0.0-2.0); EOSINOPHILS # (AUTO) 0.3 /CMM (0.0-0.7); EOSINOPHILS % (AUTO) 2.5 % (0.0-6.0); HEMATOCRIT 38 % (39-51); HEMOGLOBIN 12.8 g/dL (13.5-17.5); LYMPHOCYTES # (AUTO) 4.4 /CMM (0.8-4.8); LYMPHOCYTES % (AUTO) 36.3 % (20.0-44.0); MEAN CORPUSCULAR HEMOGLOBIN 31 PG (26.0-33.0); MEAN CORPUSCULAR HGB CONC 34 g/dl (31.0-36.0); MEAN CORPUSCULAR VOLUME 91 fL (80-96); MONOCYTES # (AUTO) 0.7 /CMM (0.1-1.30); NEUTROPHILS # (AUTO) 6.7 /CMM (1.8-8.9); NEUTROPHILS % (AUTO) 54.8 % (43.0-81.0); PLATELET COUNT (AUTO) 171 /CMM (150-450); RED BLOOD CELL COUNT(AUTO) 4.15 MIL/uL (4.5-6.0); WHITE BLOOD COUNT (AUTO) 12.1 K/uL (4.3-11.0)
[2016-10-13 04:51] LABS: CALCIUM, SERUM 8.8 mg/dL (8.5-10.1); CREATININE 0.8 mg/dL (0.6-1.3); MAGNESIUM 1.3 mg/dL (1.8-2.4); PHOSPHORUS 2.8 mg/dL (2.5-4.9)
--- NOTE | 2016-10-13 07:20 | NUR ---
CURTAIN STRETCHER: pt.is A/Ox3, no c/o, no pain, SR, O2sat. WNL, SBP over 100 below 150, BS 54 lab, K+3.0, Mg 1.3, nobody reported, is in room, updated with pt.current condition, VS, labs, I/O, IVF
--- NOTE | 2016-10-13 07:25 | NUR ---
NEGATIVE SPOTTER: rechecked BS: 62, notified , ordered: give dextrose 50%-50ml x one iV now, change insulin SS for mild scale
[2016-10-13] MEDS ORDERED: IV SET PRIMARY PUMP SET 1 EA INFUS.SET MC ONE ×2 (08:00→13:41)
[2016-10-13] MEDS ORDERED: DEXTROSE 50%-WATER 50 ML DISP.SYRIN IV PRN (08:00)
[2016-10-13] MEDS ORDERED: POTASSIUM CHLORIDE 20 MEQ TAB.PRT.SR PO ONE (08:00)
--- NOTE | 2016-10-13 08:00 | NUR ---
CHIEF LEGAL OFFICER: Dextorose 50%-50ml IV was given, was paged and confirmed: continue same IVF and same Lemevir dose, keep pt.in ICU for 24hrs more
[2016-10-13] MEDS: Magnesium 1GM/D5W 100ML PREMIX 100 ML IV SCH ×2 (08:05→09:12)
[2016-10-13] MEDS: PANTOPRAZOLE 40 MG TABLET.DR PO SCH (08:05)
[2016-10-13] MEDS: IV 1/2NS 1000 ML 1,000 ML IV PRN ×3 (08:24→16:27)
--- NOTE | 2016-10-13 09:00 | NUR ---
PHOTOGRAPHER HELPER: pt.is A/Ox3, no c/o, no any pain, VSS
[2016-10-13] MEDS: NICOTINE PATCH (21MG) 21 MG PATCH.TD24 TD SCH (09:09)
--- NOTE | 2016-10-13 10:28 | NUR ---
CLINICAL UNIT EDUCATOR: pt.got order to transfer to [facility], charge nurse verified with microbiol/lab: staph aureus in sputum is not MRSA
[2016-10-13] MEDS: INSULIN REGULAR, HUMAN 100 UNIT/ML 3 ML VIAL SQ PRN ×3 (12:07→22:18)
[2016-10-13] MEDS: BLOOD SUGAR DIAGNOSTIC 1 EACH STRIP IN SCH ×3 (12:12→22:15)
--- NOTE | 2016-10-13 12:28 | NUR ---
POULTRY GRADER: updated, pt.got 40meq K+ PO am dose, 2gm Mg IV am dose, ordered: more 2gm Mg IV, KPhos 11meq x 2 bags IV
[2016-10-13] MEDS ORDERED: SECONDARY IV SET 1 EA INFUS.SET MC ONE (13:35)
[2016-10-13] MEDS: Magnesium 1GM/D5W 100ML PREMIX 1 G in PREMIX 1 EA IV SCH ×2 (13:39→14:38)
[2016-10-13] MEDS: Potassium Phosphate meq 11 MEQ in IV D5W 100 ML IV SCH ×2 (13:39→16:22)
--- NOTE | 2016-10-13 16:33 | NUR ---
CARBONATION EQUIPMENT TENDER: pt.is A/Ox3, no c/o, SR, SBP [id number] below 150, no any pain, O2sat. WNL, urinates every 1-2hrs, no BM, stool OB order is active, pt.family was in room, updated with pt.VS, orders, POC
--- NOTE | 2016-10-13 17:00 | NUR ---
WAGON WASHER: pt.refused for PM care now, said for evening time
--- NOTE | 2016-10-13 17:20 | NUR ---
ANESTHESIOLOGY FACULTY: pt.is transferred to [facility] after full report for SAIGE Bush
--- NOTE | 2016-10-13 17:55 | NUR ---
RN OPENING NOTES RECEIVED TRANSFER PATIENT FROM ICU AND TOOK REPORT FROM RICHAR MOULTON. HOB ELEVATED, NO SOB OR DISTRESS NOTED. A/O X 4 VERBALLY RESPONSIVE AND ABLE TO MAKE NEEDS KNOWN. IV INTACT AND PATENT. KEPT PATIENT CLEAN AND COMFORTABLE IN BED, CALL LIGHT WITHIN PATIENT REACH. WILL CONTINUE TO MONITOR ACCORDINGLY.
--- NOTE | 2016-10-13 19:05 | NUR ---
RN NOTE RECEIVED REPORT. PT AAOX4, NO C/O ANY PAIN OR DISCOMFORT, NON S/S OF ANY DISTRESS OR HYPO/HYPERGLYCEMIA. IV INTACT AND PATENT. CALL LIGHT IN REACH, WILL CONT TO MONITOR.
--- NOTE | 2016-10-13 19:32 | NUR ---
RN NOTES ALL NEEDS PROVIDED, ATTENDED, AND ANTICIPATED. KEPT PATIENT CLEAN AND COMFORTABLE IN BED, CALL LIGHT WITHIN PATIENT REACH, WILL CONTINUE TO MONITOR ACCORDINGLY. ENDORSED TO NEXT SHIFT RN TO CONTINUE CARE.
[2016-10-13] MEDS: INSULIN DETEMIR 100 UNIT/ML CARTRIDGE SQ SCH (22:16)
--- NOTE | 2016-10-14 06:50 | NUR ---
RN NOTE NO SIGNIFICANT CHANGES OVERNIGHT. PT SLEPT WELL. NO S/S OF ANY DISTRESS AT THIS TIME. IV INTACT AND PATENT. ALL NEEDS ATTENDED TO, WILL F/U WITH DAY SHIFT FOR ANTONY. BS 60. ORANGE JUICE GIVEN.
--- NOTE | 2016-10-14 07:31 | NUR ---
RN OPENING NOTES RECEIVED PATIENT IN BED, AWAKE, HOB ELEVATED, NO SOB OR DISTRESS NOTED. A/O X 4, VERBALLY RESPONSIVE AND ABLE TO MAKE NEEDS KNOWN. IV INTACT AND PATENT. KEPT PATIENT CLEAN AND COMFORTABLE IN BED, CALL LIGHT WITHIN PATIENT REACH. WILL CONTINUE TO MONITOR ACCORDINGLY
[2016-10-14 08:00] VITALS: BP 108/70
[2016-10-14 08:14] LABS: BASOPHILS % (AUTO) 0.1 % (0.0-2.0); EOSINOPHILS # (AUTO) 0.2 /CMM (0.0-0.7); EOSINOPHILS % (AUTO) 2.1 % (0.0-6.0); HEMATOCRIT 40 % (39-51); HEMOGLOBIN 13.4 g/dL (13.5-17.5); LYMPHOCYTES # (AUTO) 2.9 /CMM (0.8-4.8); LYMPHOCYTES % (AUTO) 31.3 % (20.0-44.0); MEAN CORPUSCULAR HEMOGLOBIN 31 PG (26.0-33.0); MEAN CORPUSCULAR HGB CONC 34 g/dl (31.0-36.0); MEAN CORPUSCULAR VOLUME 91 fL (80-96); MONOCYTES # (AUTO) 0.6 /CMM (0.1-1.30); MONOCYTES % (AUTO) 6.7 % (2.0-12.0); NEUTROPHILS # (AUTO) 5.5 /CMM (1.8-8.9); NEUTROPHILS % (AUTO) 59.8 % (43.0-81.0); PLATELET COUNT (AUTO) 179 /CMM (150-450); RDW COEFFICIENT OF VARIATION 13.2 (11.5-15.0); RED BLOOD CELL COUNT(AUTO) 4.36 MIL/uL (4.5-6.0); WHITE BLOOD COUNT (AUTO) 9.3 K/uL (4.3-11.0)
[2016-10-14] MEDS: PANTOPRAZOLE 40 MG TABLET.DR PO SCH (08:22)
[2016-10-14] MEDS: NICOTINE PATCH (21MG) 21 MG PATCH.TD24 TD SCH (08:22)
[2016-10-14] MEDS: BLOOD SUGAR DIAGNOSTIC 1 EACH STRIP IN SCH ×2 (08:22→11:22)
[2016-10-14 09:06] LABS: CALCIUM, SERUM 8.9 mg/dL (8.5-10.1); CREATININE 0.9 mg/dL (0.6-1.3); MAGNESIUM 1.6 mg/dL (1.8-2.4); PHOSPHORUS 4.2 mg/dL (2.5-4.9); POTASSIUM 3.6 mmol/L (3.5-5.1)
[2016-10-14] MEDS ORDERED: INSU100I19 SQ (10:02)
[2016-10-14] MEDS ORDERED: NICO1PAT28 TD (10:02)
[2016-10-14] MEDS ORDERED: *INS REG IJ (10:02)
[2016-10-14] MEDS ORDERED: SECONDARY IV SET 1 EA INFUS.SET MC ONE (11:01)
[2016-10-14] MEDS: Magnesium 1GM/D5W 100ML PREMIX 100 ML IV SCH ×2 (11:08→12:30)
[2016-10-14] MEDS: INSULIN REGULAR, HUMAN 100 UNIT/ML 3 ML VIAL SQ PRN (12:08)
--- NOTE | 2016-10-14 14:10 | NUR ---
RN NOTES PATIENT IS WITH AT BEDSIDE IN STABLE CONDITION WITH NO SOB OR DISTRESS NOTED.
--- NOTE | 2016-10-14 14:55 | NUR ---
RN NOTES DISCHARGE INSTRUCTIONS GIVEN TO PATIENT AND ABLE TO UNDERSTAND INSTRUCTIONS AND SIGN DISCHARGE PAPER AND BELONGINGS LIST. PATIENT LEFT WALKING ACCOMPANIED WITH IN STABLE CONDITION. NO SOB OR DISTRESS NOTED. VITALS CHECKED AND RECORDED. MD AND CHARGE NURSE AWARE.
== END 2016-10-14 14:30 | disposition home or self-care (01) | DRG 420 ==
LOC: ER 06:30 → ICU 09:19 → MED 10-13 17:27
PROVIDERS: ADMIT Internal Medicine; ATTEND Internal Medicine
DX: E13.10 Other specified diabetes mellitus with ketoacidosis without coma (principal); N17.0 Acute kidney failure with tubular necrosis; K85.90 Acute pancreatitis without necrosis or infection, unspecified; D69.59 Other secondary thrombocytopenia; R13.10 Dysphagia, unspecified; E83.41 Hypermagnesemia; E86.1 Hypovolemia; F10.10 Alcohol abuse, uncomplicated; F17.210 Nicotine dependence, cigarettes, uncomplicated; E78.5 Hyperlipidemia, unspecified; I10 Essential (primary) hypertension; Z90.49 Acquired absence of other specified parts of digestive tract; E87.6 Hypokalemia; E87.1 Hypo-osmolality and hyponatremia
CPT/HCPCS: 36415; 36600; 71010-TC; 76700-TC; 80048-TC; 80053-TC; 80061-TC; 80076-TC; 81000-TC; 82746; 82803-TC; 82947-TC; 82962-TC; 83540-TC; 83690-TC; 83735-TC; 84100-TC; 84484-TC; 85025-TC; 85730-TC; 87040-TC; 87070-TC; 87081-TC; 92611-TC; 93307-TC; A4216; A4606; J1815; J3475; J3480; J3490; J7030; J7060; J7070; Z7610

== ENCOUNTER 2018-03-13 02:05 | Emergency (ER) | payer MEDICAID ==
[~2018-03-13] VITALS: Ht 180.3 cm; Wt 77.1 kg
[~2018-03-13 02:05] MED LIST changes: +*INS REG IJ; -HYDR-552 PO; +IBUP-2269 PO; +INSU100I19 SQ; +NICO1PAT28 TD
--- NOTE | 2018-03-13 02:28 | NUR ---
PT STATES PAIN LEVEL 8/10 ALL OVER BODY. FEELS LIKE BURNING, SOMETIMES DIFFICULT TO MOVE EXTREMITIES. "FEELING COMES AND GOES SINCE 18 YRS OLD". NOTHING MAKES IT BETTER OR WORSE. PT IS AOX4, VSS, RESPIRATIONS EVEN AND UNLABORED. SKIN WARM TO TOUCH, DRY, INTACT. AWAITING MD DOE.
[2018-03-13] MEDS ORDERED: TRAMADOL HCL 50 MG TABLET PO ONE (02:30)
[2018-03-13] MEDS ORDERED: TRAMADOL HCL 50 MG TABLET ONE (02:33)
[2018-03-13 02:45] LABS: BASOPHILS # (AUTO) 0.1 /CMM (0.0-0.2); BASOPHILS % (AUTO) 0.7 % (0.0-2.0); EOSINOPHILS % (AUTO) 0.9 % (0.0-6.0); HEMATOCRIT 39 % (39-51); LYMPHOCYTES # (AUTO) 2.1 /CMM (0.8-4.8); LYMPHOCYTES % (AUTO) 19.3 % (20.0-44.0); MEAN CORPUSCULAR HGB CONC 34 g/dl (31.0-36.0); MEAN CORPUSCULAR VOLUME 100 fL (80-96); MONOCYTES # (AUTO) 1.1 /CMM (0.1-1.30); MONOCYTES % (AUTO) 9.6 % (2.0-12.0); NEUTROPHILS # (AUTO) 7.7 /CMM (1.8-8.9); NEUTROPHILS % (AUTO) 69.5 % (43.0-81.0); PLATELET COUNT (AUTO) 204 /CMM (150-450); RED BLOOD CELL COUNT(AUTO) 3.88 MIL/uL (4.5-6.0); WHITE BLOOD COUNT (AUTO) 11.1 K/uL (4.3-11.0)
[2018-03-13 02:55] LABS: CREATININE 2.7 mg/dL (0.6-1.3); POTASSIUM 3.8 mmol/L (3.5-5.1)
--- NOTE | 2018-03-13 03:24 | NUR ---
Patient discharged to home in stable condition. Written and verbal after care instructions given. Patient verbalizes understanding of instruction.
[2018-03-13 03:26] VITALS: BP 128/72
== END 2018-03-13 03:28 | disposition home or self-care (01) ==
LOC: ER 02:05
DX: E11.40 Type 2 diabetes mellitus with diabetic neuropathy, unspecified (principal); I10 Essential (primary) hypertension; E11.65 Type 2 diabetes mellitus with hyperglycemia; E78.00 Pure hypercholesterolemia, unspecified; F17.200 Nicotine dependence, unspecified, uncomplicated; Z90.49 Acquired absence of other specified parts of digestive tract; Z79.4 Long term (current) use of insulin
CPT/HCPCS: 36415; 80048; 85025; 99283; A4606; Z7610

== ENCOUNTER 2018-04-25 12:54 | Inpatient (IN) | payer MEDICAID ==
[~2018-04-25] VITALS: Ht 180.3 cm; Wt 73.5 kg
[2018-04-25] MEDS ORDERED: IV NS 0.9% 1,000 ML BAG IV ONE ×3 (13:30→16:30)
--- NOTE | 2018-04-25 13:30 | NUR ---
initial contact with pt , no acute distress c/o gen weakness, amanda eye appear jaundice denies liver dse. finger stick BS high MD aware..Iv started with blood draw , urine sent , 12 lead EKG done by Sagar THIBODEAUX tech. IVF NS bolus started
[2018-04-25 13:36] LABS: BASOPHILS # (AUTO) 0.1 /CMM (0.0-0.2); BASOPHILS % (AUTO) 0.4 % (0.0-2.0); EOSINOPHILS % (AUTO) 0.1 % (0.0-6.0); HEMATOCRIT 27 % (39-51); HEMOGLOBIN 8.3 g/dL (13.5-17.5); LYMPHOCYTES # (AUTO) 1.7 /CMM (0.8-4.8); LYMPHOCYTES % (AUTO) 10.2 % (20.0-44.0); MEAN CORPUSCULAR HGB CONC 30 g/dl (31.0-36.0); MEAN CORPUSCULAR VOLUME 111 fL (80-96); MONOCYTES # (AUTO) 1.6 /CMM (0.1-1.30); MONOCYTES % (AUTO) 9.7 % (2.0-12.0); NEUTROPHILS # (AUTO) 12.9 /CMM (1.8-8.9); NEUTROPHILS % (AUTO) 79.6 % (43.0-81.0); PLATELET COUNT (AUTO) 141 /CMM (150-450); RED BLOOD CELL COUNT(AUTO) 2.47 MIL/uL (4.5-6.0); WHITE BLOOD COUNT (AUTO) 16.2 K/uL (4.3-11.0)
--- NOTE | 2018-04-25 13:40 | NUR ---
bedside radiology , CXR performed
[2018-04-25 13:42] LABS: POTASSIUM 4.6 mmol/L (3.5-5.1)
[2018-04-25 13:45] LABS: APPEARANCE,URINE Clear (CLEAR); BILIRUBIN,URINE LARGE (NEGATIVE); BLOOD, URINE Trace-intact Ery/uL (NEGATIVE); COLOR,URINE Yellow (YELLOW); KETONES,URINE Negative (NEGATIVE); LEUKOCYTE ESTERASE ,URINE Negative (NEGATIVE); NITRITE, URINE Negative (NEGATIVE); PROTEIN,URINE Negative (NEGATIVE); UGLUCOSE >=1000 mg/dL (NEGATIVE); UROBILINOGEN,URINE 0.2 EU/dL (0.2)
[2018-04-25 13:46] LABS: CREATININE 1.6 mg/dL (0.6-1.3)
[2018-04-25 13:49] LABS: BACTERIA,URINE Rare /HPF (None Seen); SQUAMOUS EPITHELIAL CELL,UR Rare /HPF (None Seen)
[2018-04-25] MEDS ORDERED: GLIM1TAB2 PO (13:58)
[2018-04-25] MEDS ORDERED: INSU100I26 SQ (13:58)
[2018-04-25] MEDS ORDERED: ZOLP10TA6 PO (13:58)
[2018-04-25] MEDS ORDERED: INSU100V11 SQ (13:59)
--- NOTE | 2018-04-25 14:04 | NUR ---
Dr Painting seen and evaluated pt
[2018-04-25] MEDS ORDERED: INSULIN REGULAR, HUMAN 100 UNIT/ML 3 ML VIAL IV ONE ×2 (14:30→16:30)
[2018-04-25 14:39] LABS: ACETAMINOPHEN 0 ug/ml (10-30)
[2018-04-25] MEDS ORDERED: INSULIN REGULAR, HUMAN 100 UNIT/ML 10 ML VIAL ONE (14:43)
[2018-04-25 14:44] LABS: BAND % (MANUAL) 4 % (0.0-5.0); LYMPHOCYTES % (MANUAL) 12 % (16-48); MONOCYTES % (MANUAL) 2 % (0-11.0); NEUTROPHILS % (MANUAL) 82 (42-76)
[2018-04-25 14:46] LABS: ALCOHOL, BLOOD < 3 mg/dL (0-0)
--- NOTE | 2018-04-25 14:55 | NUR ---
REGULAR INSULIN 14 UNITS GIVEN IVP ORDERED,R AC 20G,DOSE WITNESSED BY ANDRE UGARTE
[2018-04-25 15:09] LABS: ALBUMIN 1.8 g/dL (3.4-5.0); BILIRUBIN,DIRECT 15.2 mg/dL (0.0-0.2); BILIRUBIN,TOTAL 18.4 mg/dL (0.2-1.0); TOTAL PROTEIN, SERUM 6.6 g/dL (6.4-8.2)
[2018-04-25 15:35] LABS: SERUM AMMONIA 20 umol/L (11-32)
[2018-04-25 15:51] LABS: OCCULT BLOOD STOOL POSITIVE (NEGATIVE)
--- NOTE | 2018-04-25 15:51 | NUR ---
CALLED [facility] SPOKE WITH JANINE TO PRESENT CASE, FAXED FACE SHEET AND CLINICALS TO
--- NOTE | 2018-04-25 16:06 | NUR ---
MORELIA Sosa called [facility] for higher level of care transfer
--- NOTE | 2018-04-25 16:25 | NUR ---
repeat fingerstick glucose 577 Dr Painting made aware
[2018-04-25] MEDS ORDERED: PANTOPRAZOLE 40 MG VIAL ONE (16:28)
[2018-04-25] MEDS ORDERED: PIPERACILLIN /TAZOBACTAM 3.375 G in IV D5W 50 ML IV ONE (16:30)
[2018-04-25] MEDS ORDERED: PANTOPRAZOLE 80 MG in IV NS 0.9% 500 ML IV ONE (16:30)
--- NOTE | 2018-04-25 16:38 | NUR ---
protonix 80 mg given IVP ( made Dr Menjivar aware ) instead of mixing it in 500 ml NS
--- NOTE | 2018-04-25 16:55 | NUR ---
JANINE FROM [facility] CALLED BACK, STATED THERE IS NO CAPACITY AT [facility].
--- NOTE | 2018-04-25 16:57 | NUR ---
repeat lactic drawn by laborer airport maintenance
[2018-04-25] MEDS ORDERED: PANTOPRAZOLE 40 MG VIAL IV ONE (17:00)
--- NOTE | 2018-04-25 17:03 | NUR ---
CALLED [facility] SPOKE WITH RAMANDEEP FAXED OVER FACE SHEET AND CLINICALS.
--- NOTE | 2018-04-25 17:37 | NUR ---
CALLED [facility] SALESPERSON Dr. Damian Kong [phone]
--- NOTE | 2018-04-25 17:43 | NUR ---
repeat fingerstick BS 414 Dr Painting made aware
--- NOTE | 2018-04-25 17:53 | NUR ---
ICU 259
--- NOTE | 2018-04-25 18:21 | NUR ---
report called to BOOM OPERATORSAIGE Sam
--- NOTE | 2018-04-25 18:32 | NUR ---
paged RT for G
--- NOTE | 2018-04-25 18:45 | NUR ---
still waiting for RT to draw ABG - appranetlt they are on shift report
--- NOTE | 2018-04-25 18:51 | NUR ---
Stephen perez in [facility] - 04/25/18 at 1851 by KAREN CALLED JONO GUILLORY, EXPECTING A CALL BACK FROM Harvey FRANCISCO DR.
[2018-04-25] MEDS ORDERED: Z GUARD REMEDY 2 OZ OINT TP PRN (19:00)
[2018-04-25] MEDS ORDERED: HYDROCODONE/APAP 5/325MG 1 EACH TABLET PO PRN (19:00)
[2018-04-25] MEDS ORDERED: MAGNESIUM HYDROXIDE 30 ML UDC PO PRN (19:00)
[2018-04-25] MEDS ORDERED: ONDANSETRON HCL/PF 4 MG/2 ML VIAL IVP PRN (19:00)
[2018-04-25] MEDS ORDERED: ACETAMINOPHEN 325 MG TABLET PO PRN (19:00)
--- NOTE | 2018-04-25 19:25 | NUR ---
RECEIVED PT IN NO ACUTE DISTRESS FROM MOHAN CRUM. PT AMBULATED TO BED WITH A STEADY GAIT. PT SAT IN A COMFORTABLE POSITION. PT IS ON RA AND TOLERATING WELL WITH O2 SAT @ 98%. PT IS A/O X 4 AND ABLE TO MAKE NEEDS KNOWN. PT NOT C/O ANY SOB OR DIFFICULTY BREATHING, BUT IS C/O PAIN IN THE ABDOMEN 11/09 AND PAIN MANAGEMENT INITIATED. PT HAS RAC 20G THAT IS CLEAN DRY INTACT AND PATENT WITH NS FLUSH. PLACED SECOND IV IN LEFT FOREARM 20G THAT IS CLEAN DRY INTACT AND PATENT. BED IN LOW LOCK POSITION WITH RIALS UP X 2. CALL LIGHT WITHIN REACH AND ALL SAFETY MEASURES ENSURED AND CARRIED OUT. WILL CONTINUE TO MONITOR PT.
[2018-04-25 19:29] LABS: ABG BASE EXCESS -1.9 mmol/L; ABG OXYGEN SATURATION 95.8 % (92.0-98.5); ABG PCO2 39.9 mmHg (35.0-45.0); ABG PO2 87.9 mmHg (75.0-100.0); AaDO2 14.1 mmHg; COHb 2.1 % (0.5-1.5); MetHb 0.7 % (0.0-1.5); O2Hb 93.1 % (94.0-97.0); SITE, ABG Right Radial; VENT MODE, BG RA
[2018-04-25] MEDS ORDERED: HYDROMORPHONE INJ 0.5 MG/0.5 ML SYRINGE IV PRN (19:30)
[2018-04-25 19:32] VITALS: BP 108/56
[2018-04-25] MEDS: IV NS 0.9% 1,000 ML IV SCH (19:46)
[2018-04-25 20:13] VITALS: BP 118/74
[2018-04-25] MEDS: THIAMINE HCL 100 MG TABLET PO SCH (20:19)
[2018-04-25] MEDS ORDERED: FEE PK DOSING 1 MIN EA MC ONE ×3 (20:19→20:31)
[2018-04-25] MEDS: BLOOD SUGAR DIAGNOSTIC 1 EACH STRIP IN SCH (20:20)
[2018-04-25] MEDS: FOLIC ACID 1 MG TABLET PO SCH (20:20)
[2018-04-25] MEDS: INSULIN REGULAR, HUMAN 100 UNIT/ML 3 ML VIAL SQ PRN (20:36)
[2018-04-25 21:00] VITALS: BP_SYST 108; BP_DIAS 56; BP_DIAS 66
[2018-04-25] MEDS ORDERED: PIPERACILLIN /TAZOBACTAM 2.25 G in IV D5W 50 ML IV SCH (21:00)
[2018-04-25] MEDS ORDERED: PHYTONADIONE INJ 10 MG/1 ML AMPUL SQ ONE (21:00)
[2018-04-25 21:20] LABS: ALBUMIN 1.7 g/dL (3.4-5.0); BILIRUBIN,DIRECT 14.4 mg/dL (0.0-0.2); BILIRUBIN,TOTAL 17.6 mg/dL (0.2-1.0); TOTAL PROTEIN, SERUM 6.3 g/dL (6.4-8.2)
[2018-04-25] MEDS ORDERED: VANCOMYCIN 1 GM VIAL ONE (21:22)
[2018-04-25] MEDS: VANCOMYCIN 1 GM in IV D5W 250 ML IV SCH (21:36)
[2018-04-25] MEDS: PIPERACILLIN /TAZOBACTAM 3.375 G in IV D5W 100 ML IV SCH (21:36)
[2018-04-25 22:01] VITALS: BP 102/63
[2018-04-25 23:00] VITALS: BP 100/84
[2018-04-26] VITALS (35 sets, daily range): BP systolic 84–118; BP diastolic 47–80
[2018-04-26] MEDS: BLOOD SUGAR DIAGNOSTIC 1 EACH STRIP IN SCH ×4 (01:12→22:09)
[2018-04-26] MEDS: INSULIN REGULAR, HUMAN 100 UNIT/ML 3 ML VIAL SQ PRN ×3 (01:13→22:16)
--- NOTE | 2018-04-26 01:56 | NUR ---
RECEIVED FIRST UNIT OF FRESH FROZEN PLASMA (FFP) FROM DANITZA MOTA AND WHEN VERIFYING THE FFP THE SYSTEM GAVE A WARNING WINDOW THAT UNIT IS NOT THE SAME WHAT WAS GIVEN. CONTACTED LAB AND DANITZA MOTA ARRIVED ON UNIT TO VERIFY AND GAVE OK TO OVERRIDE. VERIFIED WITH ANOTHER FINN MOULTON.
[2018-04-26] MEDS: IV NS 0.9% 1,000 ML IV SCH ×3 (02:10→22:06)
[2018-04-26 04:54] LABS: BASOPHILS % (AUTO) 0.3 % (0.0-2.0); EOSINOPHILS % (AUTO) 0.8 % (0.0-6.0); LYMPHOCYTES # (AUTO) 3.2 /CMM (0.8-4.8); LYMPHOCYTES % (AUTO) 19.8 % (20.0-44.0); MEAN CORPUSCULAR HGB CONC 35 g/dl (31.0-36.0); MEAN CORPUSCULAR VOLUME 99 fL (80-96); MONOCYTES # (AUTO) 1.1 /CMM (0.1-1.30); MONOCYTES % (AUTO) 6.6 % (2.0-12.0); NEUTROPHILS # (AUTO) 11.7 /CMM (1.8-8.9); NEUTROPHILS % (AUTO) 72.5 % (43.0-81.0); PLATELET COUNT (AUTO) 128 /CMM (150-450); WHITE BLOOD COUNT (AUTO) 16.2 K/uL (4.3-11.0)
[2018-04-26 05:04] LABS: MAGNESIUM 1.9 mg/dL (1.8-2.4); PHOSPHORUS 1.1 mg/dL (2.5-4.9); POTASSIUM 3.3 mmol/L (3.5-5.1)
[2018-04-26 05:08] LABS: HEMATOCRIT 20 % (39-51); HEMOGLOBIN 6.9 g/dL (13.5-17.5); RED BLOOD CELL COUNT(AUTO) 1.98 MIL/uL (4.5-6.0)
[2018-04-26 05:22] LABS: D-DIMER 3.47 mg/L(FEU (0.17-0.50)
[2018-04-26 05:25] LABS: LYMPHOCYTES % (MANUAL) 23 % (16-48); MONOCYTES % (MANUAL) 6 % (0-11.0); NEUTROPHILS % (MANUAL) 71 (42-76)
[2018-04-26] MEDS: PIPERACILLIN /TAZOBACTAM 3.375 G in IV D5W 100 ML IV SCH ×3 (05:48→22:10)
[2018-04-26] MEDS: DEXTROSE 50%-WATER 50 ML DISP.SYRIN IV PRN ×2 (05:58→09:43)
--- NOTE | 2018-04-26 06:19 | NUR ---
RECEIVED CRITICAL VALUE OF HGB-6.9 NOTIFIED SHAE VANCE NP WITH ORDERS TO TRANSFUSE 1 UNIT PRBC. READBACK ORDERS PERFORMED AND CARRIED OUT.
--- NOTE | 2018-04-26 07:26 | NUR ---
PT REMAINS IN NO ACUTE DISTRESS IN BED. PT DID NOT HAVE ANY SIGNIFICANT CHANGE IN CONDITION DURING SHIFT. ALL NEEDS MET, ALL ORDERS CARRIED OUT. WILL ENDORSE CARE TO AM RN FOR CONTINUITY OF CARE.
--- NOTE | 2018-04-26 08:05 | NUR ---
CULINARY WORKER: pt.is A/Ox3, no pain, O2sat. WNL on r/a, SR now, SBP over 90, NPO status, last BS 31/[id number]/191, accuV q4h, aggressive ISS/will speak with MD, H/H 6.9, no acute bleeding, ordered one PRBC unit by report, IVPLs are ok for BT by report, WBC 16.7, MINI Hardin is in room/updated with all above, MINI Hutchins reported by him, see new orders
[2018-04-26] MEDS ORDERED: INSULIN REGULAR, HUMAN 100 UNIT/ML 3 ML VIAL SQ PRN (08:30)
[2018-04-26] MEDS: FOLIC ACID 1 MG TABLET PO SCH (08:34)
[2018-04-26] MEDS: PANTOPRAZOLE 40 MG VIAL IV SCH ×2 (08:34→17:53)
[2018-04-26] MEDS: THIAMINE HCL 100 MG TABLET PO SCH (08:34)
[2018-04-26] MEDS: VANCOMYCIN 1 GM in IV D5W 250 ML IV SCH (08:36)
--- NOTE | 2018-04-26 09:00 | NUR ---
CARTON STENCILER: , , Cuong, AIR BAG BUILDER were in room, updated, see new orders
--- NOTE | 2018-04-26 09:20 | NUR ---
SUPERINTENDENT DIVISION: Miriam Hutchins called back: keep pt.NPO
[2018-04-26] MEDS: HYDROCORTISONE SOD SUCCINATE 100 MG/2 ML VIAL IV SCH ×3 (09:35→17:53)
--- NOTE | 2018-04-26 09:45 | NUR ---
CLIENT SERVICE SUPERVISOR: OR called, pt.is going for EGD, consent need to sign, checked BS before OR: 49, D50/50 IV given, OR nurse notified to recheck BS in 30mins, MINI Hutchins updated/said: hold ISS coverage until EGD will be done, , anesthesiologist are in room/updated, ok to take for EGD
--- NOTE | 2018-04-26 10:02 | NUR ---
FAMILY AND DIVORCE LEGAL ASSISTANT: pt.is transferred to OR
--- NOTE | 2018-04-26 10:20 | NUR ---
SALES EXPERT: OR nurse rechecked BS: 109 now
--- NOTE | 2018-04-26 11:10 | NUR ---
DIRECTOR OF CONSUMER AFFAIRS: got pt. from OR, A/Ox3, no pain, no c/o, O2sat. over 94%, SR, SBP is over 90, PRBC is given/tolerated well, ordered: resume all meds, advance diet, last diet order: clear liquid diet, BS 112 now
[2018-04-26] MEDS: POTASSIUM PHOSPHATE MM 7.5 MMOL in IV D5W 100 ML IV SCH ×2 (11:39→14:00)
[2018-04-26] MEDS: FLUDROCORTISONE 0.1 MG TABLET PO SCH ×2 (11:40→20:11)
--- NOTE | 2018-04-26 11:40 | NUR ---
MORTARMAN: DT updated with pt.condition, VS, BS, orders, initial and advance diet order, spoke with pt. Pt. is in room, notified re EGDS, POC, meds
[2018-04-26] MEDS ORDERED: BLOOD SUGAR DIAGNOSTIC 1 EACH STRIP IN SCH (12:00)
--- NOTE | 2018-04-26 14:46 | NUR ---
AUTO HEATER MECHANIC: pt.is rest, no any pain, SR, SBP WNL, O2sat. over 96% on r/a, no BM, appetite is good, BS before lunch was 112, pt.family got seamless tube roller info, pt. was oriented for POC, meds, diet regime
--- NOTE | 2018-04-26 16:00 | NUR ---
BOOKY: alexandru Hutchins order: transfer to tele, all PM, skin care done
--- NOTE | 2018-04-26 16:45 | NUR ---
TORCH BRAZER: pt.is transferred to Tele after full report for SAIGE Granados
--- NOTE | 2018-04-26 16:46 | NUR ---
LABOR ECONOMICS PROFESSOR: SAIGE Green
--- NOTE | 2018-04-26 17:00 | NUR ---
Patient arrived on unit in stable condition via bed with SUPERVISOR MARBLE. Vital signs stable. Full report received and antibiotics/insulins received from ICU. Advance to [facility] soft diet for dinner as tolerated s/p EGD. Will continue to monitor and intervene as needed.
--- NOTE | 2018-04-26 17:03 | NUR ---
Patient is alert,lives locally alone. He was ambulatory and independent with adl's prior to admit. Has no DME or homehealth reported. Has hx of heavy use and alcohol abuse. He has chronic alcoholic pancreatitis and DM with non-compliance. He plan to return home once discharge. Will refer to social sciences research scientist for outpt substance abuse treatment resources. Addendum: 04/26/18 at 1703 by GERMAN DOE RN Amended: Links added.
--- NOTE | 2018-04-26 17:15 | NUR ---
mushroom picker Opening Note Patient awake, resting in bed. No acute distress noted, SOB or signs/symptoms of chest pain. Alert and oriented x 4, able to verbalize needs. Ambulates with steady gait after sitting on edge of bed, standby assist to bathroom. hall monitor: sinus rhythm at 71 bpm. Peripheral IV access to the right AC 20 gauge, intact, patent and infusing NS @ 150 mL/hr; alternate access on left forearm 20 gauge infusing Zosyn as ordered. Skin warm and dry to touch. Fall and Safety precautions in place: bed in lowest and locked position, bed alarm on, side rails up x2, call light and personal possessions within reach. Verbalized understanding and demonstrated use of safety features. Will continue to monitor accordingly.
[2018-04-26] MEDS ORDERED: DEXTROSE 50%-WATER 50 ML DISP.SYRIN IV PRN (17:30)
--- NOTE | 2018-04-26 17:30 | NUR ---
Blood glucose check when patient received tray, blood sugar of 364. Will administer insulin as ordered for coverage.
[2018-04-26] MEDS: SUCRALFATE 1 G TABLET PO SCH ×2 (17:53→22:10)
[2018-04-26] MEDS: INSULIN ASPART/LISPRO 100 UNIT/ML CARTRIDGE SQ SCH (18:12)
--- NOTE | 2018-04-26 18:30 | NUR ---
Called pharmacy regarding missing Florinef dose 1800. Will send up as soon as possible.
--- NOTE | 2018-04-26 19:00 | NUR ---
windows server specialist Closing Note Patient asleep, resting in bed. No acute distress noted, SOB or signs/symptoms of chest pain. Alert and oriented x 4, able to verbalize needs. Ambulates with steady gait after sitting on edge of bed, standby assist to bathroom. laboratory monitor: sinus rhythm at 70 bpm. Peripheral IV access to the right AC 20 gauge, intact, patent and saline locked; alternate access on left forearm 20 gauge infusing NS @ 150 mL/hr; . Skin warm and dry to touch. Fall and Safety precautions in place: bed in lowest and locked position, bed alarm on, side rails up x2, call light and personal possessions within reach. Verbalized understanding and demonstrated use of safety features. Will endorse to overnight associate RN for continuity of care.
--- NOTE | 2018-04-26 19:25 | NUR ---
RN NOTES; RECEIVED ASLEEP ON BED, ON SEMI FOWLERS POSITION, ROOM AIR, ON TELE MONITOR SR-75,A/O X4,ORIENTED TO UNIT AND STAFF,IV CANNULA INTACT RAC G#20 AND HUBER G#20, IV ATB ONGOING, IVF OF NS AT 150 ML/HR ONGOING,KEPT ON CLOSE WATCH, MONITOR FOR SIGN OF BLEEDING,STILL AWAITING FOR FLORINEF TO BE DELIVERED,JODIE AWARE IN PHARMACY PER ENDORSEMENT,FALL, SAFETY AND ASPIRATION PRECAUTION OBSERVED. BED LOW AND LOCKED, CALL LIGHT KEPT WITHIN EASY REACH.
--- NOTE | 2018-04-26 19:25 | NUR ---
Followed up with Time from pharmacy about 1800 dose of rosy Ortiz is still out delivering medication. Endorsed to shift shift RN for follow-up. Addendum: 04/26/18 at 6 by JAYLEEN TREVINO RN Sebastián from pharmacy
--- NOTE | 2018-04-26 20:15 | NUR ---
RN NOTES: FLUDROCORTISONE DELIVERED GIVEN TO PATIENT, TOLERATED.
--- NOTE | 2018-04-26 22:10 | NUR ---
RN NOTES: -IVF CONSUMED, STARTED NEW IVF OF NS AT 150ML/HR VIA INFUSION PUMP. ASSISTED GOING TO THE BATHROOM HAD BM, STOOL C/S SPECIMEN COLLECTED, SLADE/LABORATORY NOTIFIED, SPECIMEN READY FOR P/U.
[2018-04-26] MEDS: INSULIN GLARGINE, 100 UNIT/ML CARTRIDGE SQ SCH (22:12)
--- NOTE | 2018-04-26 22:34 | NUR ---
RN NOTES: ASLEEP MOST OF THE TIME,BLOOD SUGAR CHECK-326, INSULIN GIVEN PER SCALE, LANTUS DOSE GIVEN,WILL CONTINUE TO MONITOR FOR SIGN OF HYPER/HYPOGLYCEMIA,ASSISTED TO BATHROOM TO URINATE.NO DIZZINESS NOTED.WILL CONTINUE TO MONITOR AND KEPT ON CLOSE WATCH.
[2018-04-27] VITALS (8 sets, daily range): BP systolic 105–110; BP diastolic 60–67
[2018-04-27] MEDS: FLUDROCORTISONE 0.1 MG TABLET PO SCH ×2 (00:12→06:09)
--- NOTE | 2018-04-27 01:11 | NUR ---
RN NOTES: DUE ORAL MEDICATION GIVEN, HE EAT JELLO AND DRINK APPLE JUICE.
[2018-04-27] MEDS: IV NS 0.9% 1,000 ML IV SCH ×2 (04:50→05:28)
[2018-04-27] MEDS: PIPERACILLIN /TAZOBACTAM 3.375 G in IV D5W 100 ML IV SCH (05:09)
--- NOTE | 2018-04-27 05:29 | NUR ---
RN NOTES: -IVF FINISHED,STARTED A NEW BAG OF NS AT 150 ML/HR VIA INFUSION PUMP, ADEQUATE URINE OUTPUT.CALLS AND NEEDS ATTENDED, SNACKS GIVEN PER PATIENT REQUEST.
[2018-04-27] MEDS: BLOOD SUGAR DIAGNOSTIC 1 EACH STRIP IN SCH ×4 (06:51→21:21)
[2018-04-27] MEDS: INSULIN REGULAR, HUMAN 100 UNIT/ML 3 ML VIAL SQ PRN ×4 (06:52→21:31)
--- NOTE | 2018-04-27 07:06 | NUR ---
RN NOTES: HE DRINK APPLE JUICE AT AROUND O500, BLOOD SUGAR CHECKED-352, INSULIN GIVEN PER SCALE,REMAINED STABLE , NO COMPLAINTS OF PAIN OR DISCOMFORT, NO ACTIVE BLEEDING NOTED, KEPT ON CLOSE WATCH, SR-90,ENDORSED FOR CONTINUITY OF CARE.
--- NOTE | 2018-04-27 07:30 | NUR ---
DISTRIBUTOR ADVERTISING MATERIAL OPENING NOTES RECEIVED PT RESTING COMFORTABLY IN BED. PT IS A/O X4, AFEBRILE. RESPIRATIONS ARE EVEN AND UNLABORED, NOT IN ANY ACUTE DISTRESS NOTED. PT C/O PAIN 10/09 TO BLE, PT REFUSES ANY PAIN MEDS AT THIS TIME. WILL CONTINUE TO MONITOR. IV SITE TO RAC AND LFA INTACT, NO INFILTRATION NOTED. DRESSING KEPT CLEAN AND DRY. IV FLUIDS RUNNING AT 150ML/HR AND TOLERATING WELL. SAFETY MEASURES ARE IN PLACE. INSTRUCTED PT TO USE CALL LIGHT WHEN ASSISTANCE IS NEEDED, CALL LIGHT IS LEFT WITHIN REACH. WILL MONITOR THROUGHOUT SHIFT FOR CONTINUITY OF CARE.
[2018-04-27] MEDS: SUCRALFATE 1 G TABLET PO SCH ×4 (08:19→21:32)
[2018-04-27] MEDS: THIAMINE HCL 100 MG TABLET PO SCH (08:19)
[2018-04-27] MEDS: FOLIC ACID 1 MG TABLET PO SCH (08:19)
[2018-04-27] MEDS: PANTOPRAZOLE 40 MG VIAL IV SCH ×2 (08:20→16:49)
[2018-04-27] MEDS: HYDROCORTISONE SOD SUCCINATE 100 MG/2 ML VIAL IV SCH (08:20)
[2018-04-27] MEDS: INSULIN ASPART/LISPRO 100 UNIT/ML CARTRIDGE SQ SCH ×2 (08:29→18:20)
--- NOTE | 2018-04-27 08:35 | NUR ---
MS RN NOTES-- INVESTMENT BROKER ADMINSITERED NS 1L AT 0528. CLEARED HIGHLIGHTED RED.
[2018-04-27 09:03] LABS: IRON, SERUM 101 ug/dl (50-175); TOTAL IRON BINDING CAPACITY 104 ug/dl (250-450)
[2018-04-27 09:07] LABS: BILIRUBIN,TOTAL 10.4 mg/dL (0.2-1.0); CALCIUM, SERUM 7.4 mg/dL (8.5-10.1); CREATININE 1.2 mg/dL (0.6-1.3); TOTAL PROTEIN, SERUM 5.3 g/dL (6.4-8.2)
[2018-04-27 09:10] LABS: ALBUMIN 1.3 g/dL (3.4-5.0)
[2018-04-27 09:29] LABS: BASOPHILS % (AUTO) 0.1 % (0.0-2.0); HEMATOCRIT 25 % (39-51); HEMOGLOBIN 8.4 g/dL (13.5-17.5); LYMPHOCYTES # (AUTO) 1.5 /CMM (0.8-4.8); LYMPHOCYTES % (AUTO) 9.3 % (20.0-44.0); MEAN CORPUSCULAR HGB CONC 34 g/dl (31.0-36.0); MEAN CORPUSCULAR VOLUME 102 fL (80-96); MONOCYTES # (AUTO) 0.6 /CMM (0.1-1.30); MONOCYTES % (AUTO) 3.5 % (2.0-12.0); NEUTROPHILS # (AUTO) 14.4 /CMM (1.8-8.9); NEUTROPHILS % (AUTO) 87.1 % (43.0-81.0); PLATELET COUNT (AUTO) 126 /CMM (150-450); RED BLOOD CELL COUNT(AUTO) 2.41 MIL/uL (4.5-6.0); WHITE BLOOD COUNT (AUTO) 16.5 K/uL (4.3-11.0)
--- NOTE | 2018-04-27 09:56 | NUR ---
MS RN NOTES-- MINI PINEDO MADE AWARE OF ALBUMIN LEVEL W/ NO NEW ORDERS AT THIS TIME.
[2018-04-27 10:18] LABS: FERRITIN 2555 ng/mL (8-388)
[2018-04-27] MEDS: GLUCERNA SHAKE 237 ML CAN PO SCH ×2 (13:07→16:49)
--- NOTE | 2018-04-27 18:26 | NUR ---
MS RN CLOSING NOTES ALL DUE MEDS GIVEN, NEEDS MET AND ANTICIPATED. PT REMAINS A/O X4, AFEBRILE. RESPIRATIONS ARE EVEN AND UNLABORED, NOT IN ANY ACUTE DISTRESS NOTED. DENIES ANY PAIN AT THIS TIME, NO C/O SOB, N/V. IV SITE TO RAC AND LFA INTACT, NO INFILTRATION NOTED. DRESSINGS KEPT CLEAN AND DRY. BLOOD SUGAR NOTED 376, ADMINISTERED SCHEDULED NOVOLOG 9 UNITS. NO S/SX OF HYPO/HYPERGLYCEMIA NOTED. EDUCATED PT ON CARB CONTROLLED DIET. PT IS AMBULATORY AND IS CONTINENT. NO S/SX OF BLEEDING NOTED. REMINDED PT TO USE CALL LIGHT WHEN ASSISTANCE IS NEEDED, CALL LIGHT IS LEFT WITHIN REACH. WILL ENDORSE TO NEXT SHIFT FOR CONTINUITY OF CARE.
--- NOTE | 2018-04-27 19:43 | NUR ---
RECIEVED IN BED ASLEEP. RESP EVEN AND UNLABORED. AWAKENED EASILY AND ALERT WHEN SHOULDER TOUCHED AND NAME SOFTLY SPOKEN. GOOD EYE CONTACT SPEECH CLEAR. SKIN WARM AND DRY. EYEGLASSES AT THE BEDSIDE SEEN.
[2018-04-27] MEDS: INSULIN GLARGINE, 100 UNIT/ML CARTRIDGE SQ SCH (21:24)
--- NOTE | 2018-04-28 05:55 | NUR ---
CLOSING NOTES: ALERT AND ORIENTATED THRU THE NIGHT. SOFT SPOKEN AND SMILES. DENIES PAIN. EXPLAINED TO HIM ABOUT HIS DIET BEING A DIABETEIC, HE KNOWS. STEADY ON HIS LEGS. NO BMS THIS SHIFT. SKIN WARM AND DRY. PLAN IS TO DC WHEN CLEARED BY THE GI MD MACHUCA. NO COMPLAINTS OF N/V
[2018-04-28] MEDS: BLOOD SUGAR DIAGNOSTIC 1 EACH STRIP IN SCH ×2 (06:23→12:50)
[2018-04-28] MEDS: INSULIN REGULAR, HUMAN 100 UNIT/ML 3 ML VIAL SQ PRN ×3 (06:28→13:02)
[2018-04-28] MEDS: SUCRALFATE 1 G TABLET PO SCH ×2 (06:45→12:49)
[2018-04-28 08:00] VITALS: BP 116/68
[2018-04-28 08:00] LABS: BASOPHILS % (AUTO) 0.1 % (0.0-2.0); HEMATOCRIT 27 % (39-51); HEMOGLOBIN 8.9 g/dL (13.5-17.5); LYMPHOCYTES # (AUTO) 1.5 /CMM (0.8-4.8); LYMPHOCYTES % (AUTO) 6.2 % (20.0-44.0); MEAN CORPUSCULAR HGB CONC 33 g/dl (31.0-36.0); MEAN CORPUSCULAR VOLUME 101 fL (80-96); MONOCYTES # (AUTO) 1.1 /CMM (0.1-1.30); MONOCYTES % (AUTO) 4.8 % (2.0-12.0); NEUTROPHILS # (AUTO) 21.3 /CMM (1.8-8.9); NEUTROPHILS % (AUTO) 88.9 % (43.0-81.0); PLATELET COUNT (AUTO) 135 /CMM (150-450); RED BLOOD CELL COUNT(AUTO) 2.63 MIL/uL (4.5-6.0); WHITE BLOOD COUNT (AUTO) 23.9 K/uL (4.3-11.0)
--- NOTE | 2018-04-28 08:00 | NUR ---
RN NOTES RECEIVED PATIENT IN THE BED, A/O X4, PATIENT HAS NO ACUTE RESPIRATORY DISTRESS, ENCOURAGED TO EXPRESS FEELINGS AND CONCERNS. PATIENT STABLE AT THIS TIME, REFUSED PAIN. SCHEDULED MEDICATION ADMINISTERED, V/S STABLE. IV ACCESS ON LEFT AND RIGHT AC AREA INTACT. PATIENT AMBULATORY SELF CARE., USING BATHROOM. NEEDS ATTENDED AND ANTICIPATED, CALL LIGHT WITHIN TO REACH. SAFETY PRECAUTION MAINTAINED ALL THE TIME.
[2018-04-28 08:15] LABS: CALCIUM, SERUM 8.3 mg/dL (8.5-10.1); CREATININE 1.1 mg/dL (0.6-1.3); POTASSIUM 3.6 mmol/L (3.5-5.1)
[2018-04-28 08:25] LABS: BAND % (MANUAL) 3 % (0.0-5.0); EOSINOPHILS % (MANUAL) 1 % (0-4); LYMPHOCYTES % (MANUAL) 6 % (16-48); MONOCYTES % (MANUAL) 5 % (0-11.0); NEUTROPHILS % (MANUAL) 85 (42-76)
[2018-04-28] MEDS: PANTOPRAZOLE 40 MG VIAL IV SCH (09:15)
[2018-04-28] MEDS: FOLIC ACID 1 MG TABLET PO SCH (09:15)
[2018-04-28] MEDS: THIAMINE HCL 100 MG TABLET PO SCH (09:15)
[2018-04-28] MEDS: GLUCERNA SHAKE 237 ML CAN PO SCH ×2 (09:16→12:51)
[2018-04-28] MEDS: INSULIN ASPART/LISPRO 100 UNIT/ML CARTRIDGE SQ SCH (09:40)
--- NOTE | 2018-04-28 13:00 | NUR ---
RN NOTES BS-267 MG/DL, COVERAGE GIVE, ALSO ADMINISTERED SCHEDULED MEDICATION. PATIENT GOING TO D/C HOME. PER SHAHIDA CONTRACT DESIGNER. FAMILY NEXT TO THE BED. CONTINUED MONITORING.
--- NOTE | 2018-04-28 15:05 | NUR ---
DISCHARGE NOTES PATIENT DISCHARGE AT THIS TIME GOING HOME. PATIENT STABLE, V/S STABLE, NO COMPLAINING OF PAIN AT THIS TIME. MED RECONCILIATION AND DISCHARGE NOTES REVIEWED AND EXPLAINED TO PATIENT AND . PATIENT VERBALIZED UNDERSTANDING. PRESCRIPTION HANDED TO THE PATIENT. PATIENT WILL FOLLOW PRIMARY MD. BELONGING WITH THE PATIENT. PATIENT ACETYLENE CYLINDER PACKING MIXER BY . ESCORTED PATIENT TO THE LOBBY FOR SAFETY.
== END 2018-04-28 15:00 | disposition home or self-care (01) | DRG 720 ==
LOC: ER 12:55 → ICU 18:07 → TELE 04-26 16:38 → MED 04-27 10:53
PROVIDERS: ADMIT Nurse Practitioner Acute Care; ATTEND Nurse Practitioner Acute Care
PROC: 30233N1 Transfusion of Nonautologous Red Blood Cells into Peripheral Vein, Percutaneous Approach (ICD-10-PCS; principal; 2018-04-26)
PROC: 0DB78ZX Excision of Stomach, Pylorus, Via Natural or Artificial Opening Endoscopic, Diagnostic (ICD-10-PCS; principal; 2018-04-26)
PROC: 30233K1 Transfusion of Nonautologous Frozen Plasma into Peripheral Vein, Percutaneous Approach (ICD-10-PCS; principal; 2018-04-26)
DX: A41.9 Sepsis, unspecified organism (principal); N17.0 Acute kidney failure with tubular necrosis; E43 Unspecified severe protein-calorie malnutrition; D68.4 Acquired coagulation factor deficiency; E11.40 Type 2 diabetes mellitus with diabetic neuropathy, unspecified; E87.2 Acidosis; K29.01 Acute gastritis with bleeding; D69.6 Thrombocytopenia, unspecified; D62 Acute posthemorrhagic anemia; K86.0 Alcohol-induced chronic pancreatitis; K70.11 Alcoholic hepatitis with ascites; K70.31 Alcoholic cirrhosis of liver with ascites; E87.0 Hyperosmolality and hypernatremia; E11.65 Type 2 diabetes mellitus with hyperglycemia; E78.5 Hyperlipidemia, unspecified; D53.9 Nutritional anemia, unspecified; E87.6 Hypokalemia; K21.0 Gastro-esophageal reflux disease with esophagitis; K70.40 Alcoholic hepatic failure without coma; F17.210 Nicotine dependence, cigarettes, uncomplicated; Z90.49 Acquired absence of other specified parts of digestive tract; E83.42 Hypomagnesemia; E83.39 Other disorders of phosphorus metabolism; R13.10 Dysphagia, unspecified; Z79.4 Long term (current) use of insulin; Z91.19 Patient's noncompliance with other medical treatment and regimen; R74.0 Nonspecific elevation of levels of transaminase and lactic acid dehydrogenase [LDH]; F10.288 Alcohol dependence with other alcohol-induced disorder; I10 Essential (primary) hypertension; K52.9 Noninfective gastroenteritis and colitis, unspecified
CPT/HCPCS: 36415; 36600; 71045-TC; 76705-TC; 80048-TC; 80053-TC; 80061-TC; 80076-TC; 80202-TC; 81000-TC; 82010-TC; 82140-TC; 82272-TC; 82533; 82728-TC; 82962-TC; 83540-TC; 83605-TC; 83735-TC; 84100-TC; 84484-TC; 85025-TC; 85396; 85610-TC; 85730-TC; 86706; 86708; 86709; 86803; 86850-TC; 86921-TC; 87040-TC; 87081-TC; 87086-TC; 87340; 87806; 88305-TC; 88313-TC; 88342; 93307-TC; C9113; G0378; G0480; J1720; J1815; J2543; J2704; J3370; J3430; J3490; J7030; J7050; J7060; P9016-BL; P9017-BL

== ENCOUNTER 2018-05-04 11:10 | Emergency (ER) | payer MEDICAID ==
[~2018-05-04] VITALS: Ht 182.9 cm; Wt 65.8 kg
[~2018-05-04 11:10] MED LIST changes: -*INS REG IJ; -IBUP-2269 PO; -INSU100I19 SQ; +INSU100I26 SQ; +INSU100V11 SQ; -NICO1PAT28 TD; -OMEP40CA37 PO; +ZOLP10TA6 PO
--- NOTE | 2018-05-04 11:27 | NUR ---
BIB SELF W C/O BILATERAL LOWER EXTREMITY EDEMA. TO ER BED 12, HOOKED TO MONITOR, AWAITING MD DOE.
--- NOTE | 2018-05-04 11:34 | NUR ---
DR QUINTANA AT BEDSIDE
[2018-05-04 11:59] LABS: BASOPHILS # (AUTO) 0.1 /CMM (0.0-0.2); BASOPHILS % (AUTO) 0.9 % (0.0-2.0); EOSINOPHILS % (AUTO) 0.7 % (0.0-6.0); HEMATOCRIT 29 % (39-51); HEMOGLOBIN 9.2 g/dL (13.5-17.5); LYMPHOCYTES # (AUTO) 2.3 /CMM (0.8-4.8); LYMPHOCYTES % (AUTO) 15.7 % (20.0-44.0); MEAN CORPUSCULAR HGB CONC 32 g/dl (31.0-36.0); MEAN CORPUSCULAR VOLUME 109 fL (80-96); MONOCYTES # (AUTO) 1.8 /CMM (0.1-1.30); MONOCYTES % (AUTO) 12.4 % (2.0-12.0); NEUTROPHILS # (AUTO) 10.4 /CMM (1.8-8.9); NEUTROPHILS % (AUTO) 70.3 % (43.0-81.0); PLATELET COUNT (AUTO) 149 /CMM (150-450); RED BLOOD CELL COUNT(AUTO) 2.61 MIL/uL (4.5-6.0); WHITE BLOOD COUNT (AUTO) 14.9 K/uL (4.3-11.0)
[2018-05-04 12:14] LABS: ALBUMIN 1.8 g/dL (3.4-5.0); BILIRUBIN,DIRECT 5.7 mg/dL (0.0-0.2); BILIRUBIN,TOTAL 6.5 mg/dL (0.2-1.0); CALCIUM, SERUM 8.6 mg/dL (8.5-10.1); CREATININE 1.2 mg/dL (0.6-1.3); POTASSIUM 4.4 mmol/L (3.5-5.1); TOTAL PROTEIN, SERUM 7.4 g/dL (6.4-8.2)
--- NOTE | 2018-05-04 12:15 | NUR ---
MD AWARE OF RC=439, PT ASYMPTOMATIC. INSTRUCTED TO TAKE INSULIN AT HOME PER MD.
[2018-05-04 12:47] LABS: BAND % (MANUAL) 4 % (0.0-5.0); EOSINOPHILS % (MANUAL) 1 % (0-4); LYMPHOCYTES % (MANUAL) 16 % (16-48); MONOCYTES % (MANUAL) 12 % (0-11.0); MYELOCYTES % 2 % (0-0); NEUTROPHILS % (MANUAL) 65 (42-76)
--- NOTE | 2018-05-04 13:01 | NUR ---
Patient discharged to home in stable condition. Written and verbal after care instructions given. Patient verbalizes understanding of instruction.
[2018-05-04 13:02] VITALS: BP 146/76
== END 2018-05-04 13:03 | disposition home or self-care (01) ==
LOC: ER 11:12
DX: R60.0 Localized edema (principal); K72.10 Chronic hepatic failure without coma; E11.65 Type 2 diabetes mellitus with hyperglycemia; I10 Essential (primary) hypertension; E78.00 Pure hypercholesterolemia, unspecified; F10.10 Alcohol abuse, uncomplicated; F17.200 Nicotine dependence, unspecified, uncomplicated; Y90.9 Presence of alcohol in blood, level not specified; Z79.4 Long term (current) use of insulin; Z90.49 Acquired absence of other specified parts of digestive tract
CPT/HCPCS: 36415; 80048; 80076; 83690; 85025; 99283; A4606; Z7610

== ENCOUNTER 2019-02-14 04:11 | Inpatient (IN) | payer MEDICAID ==
[2019-02-14] VITALS (64 sets, daily range): BP systolic 78–115; BP diastolic 28–71
[~2019-02-14] VITALS: Ht 180.3 cm; Wt 83.9 kg
--- NOTE | 2019-02-14 04:20 | NUR ---
PT BIBRA. AAOX4. PLACED ON 1L NS. PER EMS PT C/O HIGH BG AND HYPOTENSION. PER EMS" BLOODY DIARRHEA X1 WEEK." PT REPORTING PAIN LQ. -CP. -SOB. PT APPEARS WEAK. PLACED ON MONITOR AND PULSE OX. MD AT BEDSIDE.
[2019-02-14] MEDS ORDERED: INSULIN REGULAR, HUMAN 100 UNIT/ML 10 ML VIAL IV ONE (04:30)
[2019-02-14] MEDS ORDERED: ONDANSETRON HCL/PF 4 MG/2 ML VIAL IVP ONE (04:30)
[2019-02-14] MEDS ORDERED: IV NS 0.9% 1,000 ML BAG IV ONE ×2 (04:30→05:30)
--- NOTE | 2019-02-14 04:30 | NUR ---
RESTAURANT COOK AT BEDSIDE FOR LAB COLLECTION.
[2019-02-14] MEDS ORDERED: INSULIN REGULAR, HUMAN 100 UNIT/ML 10 ML VIAL ONE (04:32)
[2019-02-14] MEDS ORDERED: ONDANSETRON HCL/PF 4 MG/2 ML VIAL ONE ×2 (04:33→06:37)
[2019-02-14 04:50] LABS: BASOPHILS # (AUTO) 0.1 /CMM (0.0-0.2); EOSINOPHILS % (AUTO) 0.1 % (0.0-6.0); MONOCYTES # (AUTO) 1.8 /CMM (0.1-1.30)
[2019-02-14 04:59] LABS: BASOPHILS % (AUTO) 0.6 % (0.0-2.0); HEMATOCRIT 21 % (39-51); LYMPHOCYTES # (AUTO) 2.7 /CMM (0.8-4.8); LYMPHOCYTES % (AUTO) 19.5 % (20.0-44.0); MEAN CORPUSCULAR HGB CONC 29 g/dl (31.0-36.0); MEAN CORPUSCULAR VOLUME 112 fL (80-96); NEUTROPHILS # (AUTO) 9.2 /CMM (1.8-8.9); NEUTROPHILS % (AUTO) 66.8 % (43.0-81.0); WHITE BLOOD COUNT (AUTO) 13.8 K/uL (4.3-11.0)
--- NOTE | 2019-02-14 05:07 | NUR ---
URINE COLLECTED AND SENT TO LAB.
--- NOTE | 2019-02-14 05:07 | NUR ---
PT BROUGHT TO CT
[2019-02-14 05:13] LABS: HEMOGLOBIN 6.3 g/dL (13.5-17.5); PLATELET COUNT (AUTO) 42 /CMM (150-450)
[2019-02-14 05:14] LABS: APPEARANCE,URINE Slightly Cloudy (CLEAR); BILIRUBIN,URINE SMALL (NEGATIVE); BLOOD, URINE Trace-intact Ery/uL (NEGATIVE); COLOR,URINE Dark (YELLOW); KETONES,URINE Trace (NEGATIVE); LEUKOCYTE ESTERASE ,URINE Negative (NEGATIVE); NITRITE, URINE Negative (NEGATIVE); PROTEIN,URINE 30 mg/dl (NEGATIVE); UGLUCOSE 100 MG/DL mg/dL (NEGATIVE); UROBILINOGEN,URINE 0.2 EU/dL (0.2)
[2019-02-14 05:16] LABS: ALANINE AMINOTRANSFERASE 52 U/L (12-78); ALBUMIN 2.1 g/dL (3.4-5.0); ALKALINE PHOSPHATASE 156 U/L (46-116); ASPARTATE AMINOTRANSFERASE 115 U/L (15-37); BILIRUBIN,DIRECT 3.5 mg/dL (0.0-0.2); BILIRUBIN,TOTAL 4.3 mg/dL (0.2-1.0); CALCIUM, SERUM 8.2 mg/dL (8.5-10.1); CARBON DIOXIDE 11 mmol/L (21-32); CHLORIDE 95 mmol/L (98-107); CREATININE 3.9 mg/dL (0.6-1.3); LIPASE 88 U/L (73-393); SODIUM SERUM 138 mmol/L (136-145); TOTAL PROTEIN, SERUM 6.2 g/dL (6.4-8.2); UREA NITROGEN, BLOOD 41 mg/dL (7-18)
[2019-02-14 05:17] LABS: GLUCOSE 643 mg/dL (74-106); POTASSIUM 6.4 mmol/L (3.5-5.1)
[2019-02-14] MEDS ORDERED: INSULIN REGULAR, HUMAN 100 UNIT in IV NS 0.9% 99 ML IV PRN ×2 (05:30)
[2019-02-14] MEDS ORDERED: IV NS 0.9% 1,000 ML IV PRN (05:40)
--- NOTE | 2019-02-14 05:43 | NUR ---
CONSENT FOR BLOOD TRANSFUSION OBTAINED
--- NOTE | 2019-02-14 05:45 | NUR ---
RT AT BEDSIDE FOR BREATHING TREATMENT
[2019-02-14] MEDS ORDERED: ALBUTEROL FS 2.5 MG/0.5 ML VIAL.NEB ONE (05:49)
[2019-02-14] MEDS ORDERED: ACETAMINOPHEN 325 MG TABLET PO PRN (06:00)
[2019-02-14] MEDS ORDERED: ZOLPIDEM TARTRATE 5 MG TABLET PO PRN (06:00)
[2019-02-14] MEDS ORDERED: MAG HYDROX/AL HYDROX/SIMETH 30 ML UDC PO PRN (06:00)
[2019-02-14] MEDS ORDERED: MAGNESIUM HYDROXIDE 30 ML UDC PO PRN (06:00)
[2019-02-14] MEDS ORDERED: HYDROCODONE/APAP 5/325MG 1 EACH TABLET PO PRN (06:00)
[2019-02-14] MEDS ORDERED: ONDANSETRON HCL/PF 4 MG/2 ML VIAL IVP PRN (06:00)
[2019-02-14] MEDS ORDERED: Z GUARD REMEDY 2 OZ OINT TP PRN (06:00)
[2019-02-14] MEDS: BLOOD SUGAR DIAGNOSTIC 1 EACH STRIP IN SCH ×18 (06:00→22:57)
[2019-02-14] MEDS ORDERED: ALBUTEROL FS 2.5 MG/0.5 ML VIAL.NEB NEB ONE (06:00)
[2019-02-14 06:28] LABS: ABG BASE EXCESS -15.7 mmol/L; ABG OXYGEN SATURATION 95.3 % (92.0-98.5); ABG PCO2 34.8 mmHg (35.0-45.0); ABG PH 7.146 (7.350-7.450); ABG PO2 116.7 mmHg (75.0-100.0); COHb 1.5 % (0.5-1.5); O2Hb 92.9 % (94.0-97.0); SITE, ABG Left Radial; VENT MODE, BG ROOM AIR
--- NOTE | 2019-02-14 06:55 | NUR ---
BLOOD TRANSFUSION STARTED
[2019-02-14] MEDS ORDERED: ONDANSETRON HCL/PF - ER 4 MG/2 ML VIAL IV ONE (07:00)
[2019-02-14 07:09] LABS: BACTERIA,URINE Many /HPF (None Seen); SQUAMOUS EPITHELIAL CELL,UR Few /HPF (None Seen)
[2019-02-14 07:10] LABS: WBC,URINE 0-2 /HPF (0-3)
--- NOTE | 2019-02-14 07:41 | NUR ---
Report given to Kerry MOULTON for ANTONY
[2019-02-14 07:48] LABS: BAND % (MANUAL) 1 % (0.0-5.0); LYMPHOCYTES % (MANUAL) 16 % (16-48); MONOCYTES % (MANUAL) 6 % (0-11.0); MYELOCYTES % 1 % (0-0); NEUTROPHILS % (MANUAL) 76 (42-76)
[2019-02-14] MEDS ORDERED: NOREPINEPHRINE 16 MG in IV D5W 500 ML IV PRN (08:00)
--- NOTE | 2019-02-14 08:00 | NUR ---
TRANSFER AND PUMPHOUSE OPERATOR ADMITTING NOTES Rec'd pt from ER, admitted in ICU for low BP & high blood sugar level. Routine assessment done. Pt oriented to room. Pt is A/O x 3. ST on telemonitor. No fever. On room air, denies SOB. Has IV line on L AC G20 w/ insulin drip x 8u/hr infusing well & R AC G18 w/ PRBC running. Skin is intact - noted generalized tattoos & scars. at bedside. Safety precaution in place w/ bed in lowest & locked pos. Call light placed w/in reach. Will cont to monitor & attend pt needs. Per Cuong GRADES 1 THRU 6 VISITING TEACHER keep pt NPO including meds. DKA order sheet faxed to pharmacy. Pt c/o chest, abdominal & R hip pain, per Cuong GRADES 1 THRU 6 VISITING TEACHER may order MoSO4 4mg IVP q4h for pain. Addendum: 02/14/19 at 1255 by SALEEM VELEZ RN Addendum: Reggie Hutchins NP DC [place] PO.
--- NOTE | 2019-02-14 08:11 | NUR ---
1 unit of PRBC from ER transfused. No BT reaction noted.
[2019-02-14] MEDS: IV NS 0.9% 1,000 ML IV PRN ×2 (08:15→21:06)
[2019-02-14] MEDS ORDERED: IV NS 0.9% 500 ML IV ONE (08:30)
[2019-02-14] MEDS ORDERED: PANTOPRAZOLE 40 MG VIAL IV SCH (09:00)
[2019-02-14] MEDS: MORPHINE SULFATE INJ 4 MG/ML DISP.SYRIN IV PRN ×2 (09:01→17:15)
[2019-02-14] MEDS ORDERED: FOLI5VIA2 PO (09:46)
[2019-02-14] MEDS ORDERED: MULT-439 PO (09:46)
[2019-02-14] MEDS: INSULIN REGULAR, HUMAN 100 UNIT in IV NS 0.9% 99 ML IV PRN ×2 (10:04)
--- NOTE | 2019-02-14 11:00 | NUR ---
Pt's BP on low side (SBP 80's), notified Cuong DIRECTOR OF DISTRICT OFFICE, per DIRECTOR OF DISTRICT OFFICE may insert PICC line. Consent secured c/o pt. aware. Addendum: 02/14/19 at 1234 by SALEEM VELEZ RN Addendum: Per Cuong DIRECTOR OF DISTRICT OFFICE may order Domingo drip (double concentration) d/t tachycardia.
[2019-02-14] MEDS: PHENYLEPHRINE 40 MG in IV D5W 250 ML IV PRN ×2 (12:05→18:31)
[2019-02-14 12:23] LABS: CALCIUM, SERUM 6.7 mg/dL (8.5-10.1); CREATININE 3.8 mg/dL (0.6-1.3); POTASSIUM 5.8 mmol/L (3.5-5.1)
--- NOTE | 2019-02-14 16:00 | NUR ---
Rec'd call from Dr. Kathleen w/ orders to increase IVF to 200 cc/hr & Mg, P q4H.
[2019-02-14] MEDS ORDERED: FEE PK DOSING 1 MIN EA MC ONE (16:21)
[2019-02-14] MEDS ORDERED: VANCOMYCIN 1 GM in IV D5W 250 ML IV ONE (16:30)
--- NOTE | 2019-02-14 16:30 | NUR ---
EGD consent signed by patient. Placed in the chart.
[2019-02-14 16:41] LABS: IRON, SERUM 133 ug/dl (50-175); TOTAL IRON BINDING CAPACITY 144 ug/dl (250-450)
[2019-02-14 16:48] LABS: CALCIUM, SERUM 6.5 mg/dL (8.5-10.1); CREATININE 3.7 mg/dL (0.6-1.3); POTASSIUM 4.8 mmol/L (3.5-5.1)
[2019-02-14 16:52] LABS: PHOSPHORUS 2.1 mg/dL (2.5-4.9)
[2019-02-14 16:53] LABS: MAGNESIUM 1.2 mg/dL (1.8-2.4)
[2019-02-14] MEDS ORDERED: VANCOMYCIN 0.75 GM in IV D5W 250 ML IV SCH (17:00)
[2019-02-14] MEDS: PANTOPRAZOLE 40 MG VIAL IV SCH (17:14)
[2019-02-14] MEDS: METOCLOPRAMIDE HCL 10 MG/2 ML VIAL IV SCH ×2 (17:14→22:53)
[2019-02-14 17:25] LABS: FERRITIN 4231 ng/mL (8-388)
[2019-02-14 17:26] LABS: BASOPHILS % (AUTO) 1.3 % (0.0-2.0); EOSINOPHILS % (AUTO) 0.1 % (0.0-6.0); HEMATOCRIT 22 % (39-51); HEMOGLOBIN 7.1 g/dL (13.5-17.5); LYMPHOCYTES # (AUTO) 3.2 /CMM (0.8-4.8); LYMPHOCYTES % (AUTO) 19.5 % (20.0-44.0); MEAN CORPUSCULAR HGB CONC 33 g/dl (31.0-36.0); MEAN CORPUSCULAR VOLUME 96 fL (80-96); MONOCYTES % (AUTO) 6.3 % (2.0-12.0); NEUTROPHILS # (AUTO) 11.8 /CMM (1.8-8.9); NEUTROPHILS % (AUTO) 72.8 % (43.0-81.0); RED BLOOD CELL COUNT(AUTO) 2.27 MIL/uL (4.5-6.0); WHITE BLOOD COUNT (AUTO) 16.2 K/uL (4.3-11.0)
[2019-02-14 17:37] LABS: PLATELET COUNT (AUTO) 28 /CMM (150-450)
[2019-02-14 17:38] LABS: BASOPHILS # (AUTO) 0.2 /CMM (0.0-0.2)
--- NOTE | 2019-02-14 17:44 | NUR ---
Pt seen & examined by aMria Guadalupe Morse & Juancarlos MORSE.
--- NOTE | 2019-02-14 17:50 | NUR ---
Mg 1.2, Hgb/Hct 7.1/, platelet 28. Per Cuong SUPERVISOR PULLET FARM replace Mg 2gms IV, check H&H at 8pm & transfuse 1 unit of platelet STAT.
[2019-02-14] MEDS ORDERED: Magnesium 1GM/D5W 100ML PREMIX PIGGYBACK IV ONE (18:00)
[2019-02-14] MEDS ORDERED: PIPERACILLIN /TAZOBACTAM 2.25 G in IV D5W 50 ML IV SCH (18:00)
[2019-02-14 18:18] LABS: BAND % (MANUAL) 15 % (0.0-5.0); LYMPHOCYTES % (MANUAL) 21 % (16-48); MONOCYTES % (MANUAL) 4 % (0-11.0); NEUTROPHILS % (MANUAL) 60 (42-76)
[2019-02-14] MEDS: Magnesium 1GM/D5W 100ML PREMIX 100 ML IV SCH ×2 (18:39→19:45)
[2019-02-14] MEDS ORDERED: VANCOMYCIN 0.75 GM in IV NS 0.9% 250 ML IV SCH (18:46)
--- NOTE | 2019-02-14 18:49 | NUR ---
PLUMBING SERVICE TECHNICIAN CLOSING NOTES Pt resting comfortably on his bed, not in any distress. Remains A/O x 3. No SOB while on R/A. ST on telemonitor. IV line access kept patent & intact - HUBER PICC line w/ NS x 200 cc/hr, Domingo x 100 mcg, Insulin drip x 12u/hr, Mg replacement ongoing. R AC G18 SL & L AC G20 SL. Has NGT connected to LIS w/ coffee ground output. Safety precaution kept in place at all times w/ bed in lowest & locked pos. Call light placed w/in reach. Endorsed to PM RN for ANTONY. Addendum: 02/14/19 at 2 by SALEEM VELEZ RN Addendum: Endorsed to PM RN for stool specimen collection, BMP/Mg/P q4h, Mg replacement x1, platelet transfusion.
[2019-02-14] MEDS: PHENYLEPHRINE 40 MG in IV NS 0.9% 250 ML IV PRN (19:37)
--- NOTE | 2019-02-14 19:38 | NUR ---
BREAKER OFF NOTES RECEIVED PT ON BED, A/OX 4. ON ROOM AIR NO RESPIRATORY DISTRESS NOTED. ON TELE MONITOR SR 98. IV ACCESS ON LAC G18 AND RAC G 18 AND HUBER PICC LINE WITH VALDEMAR RUNNING @ 100MCG/HR, INSULIN DRIP @ 12UNITS/HR. HEAD OF BED ELEVATED. SIDE RAILS UP. CALL LIGHT WITHIN REACH. BED ALARM ON. WILL CONTINUE TO MONITOR PT CLOSELY.
[2019-02-14 20:12] LABS: HEMOGLOBIN 7.4 g/dL (13.5-17.5)
[2019-02-14 20:31] LABS: CALCIUM, SERUM 6.4 mg/dL (8.5-10.1); CREATININE 4.2 mg/dL (0.6-1.3); MAGNESIUM 1.6 mg/dL (1.8-2.4); PHOSPHORUS 1.4 mg/dL (2.5-4.9); POTASSIUM 5.6 mmol/L (3.5-5.1)
--- NOTE | 2019-02-14 21:53 | NUR ---
MANAGER ZONE NOTES CALLED LAB REGARDING PLATELET INFUSION. PER LAB PLATELET NOT READY.
[2019-02-15] VITALS (87 sets, daily range): BP systolic 63–123; BP diastolic 19–94
[2019-02-15] MEDS: BLOOD SUGAR DIAGNOSTIC 1 EACH STRIP IN SCH ×12 (00:12→23:32)
[2019-02-15 00:55] LABS: CALCIUM, SERUM 6.4 mg/dL (8.5-10.1); CREATININE 4.1 mg/dL (0.6-1.3); MAGNESIUM 1.7 mg/dL (1.8-2.4); PHOSPHORUS 1.7 mg/dL (2.5-4.9); POTASSIUM 4.7 mmol/L (3.5-5.1)
--- NOTE | 2019-02-15 00:56 | NUR ---
HOUSE ADMIN NOTES BLADDER SCAN SHOWS 250CC OF URINE. CULP CATH ORDERED.
[2019-02-15] MEDS: PIPERACILLIN /TAZOBACTAM 2.25 G in IV NS 0.9% 50 ML IV SCH ×3 (02:01→17:29)
[2019-02-15] MEDS: INSULIN REGULAR, HUMAN 100 UNIT in IV NS 0.9% 99 ML IV PRN ×2 (02:02)
[2019-02-15] MEDS: PHENYLEPHRINE 40 MG in IV NS 0.9% 250 ML IV PRN ×4 (02:02→20:49)
[2019-02-15] MEDS: IV NS 0.9% 1,000 ML IV PRN (02:03)
[2019-02-15] MEDS: METOCLOPRAMIDE HCL 10 MG/2 ML VIAL IV SCH ×4 (03:46→23:32)
--- NOTE | 2019-02-15 04:56 | NUR ---
KAYAK MAKER NOTES CALLED LAB TO F/U WITH BMP, MG,P RESULTS.
--- NOTE | 2019-02-15 04:57 | NUR ---
DIE GRINDER NOTES PT PULLED OUT NGT TUBE.
[2019-02-15 05:00] LABS: BASOPHILS # (AUTO) 0.1 /CMM (0.0-0.2); BASOPHILS % (AUTO) 0.5 % (0.0-2.0); EOSINOPHILS % (AUTO) 0.2 % (0.0-6.0); HEMATOCRIT 21 % (39-51); HEMOGLOBIN 7.1 g/dL (13.5-17.5); LYMPHOCYTES # (AUTO) 3.3 /CMM (0.8-4.8); LYMPHOCYTES % (AUTO) 23.2 % (20.0-44.0); MEAN CORPUSCULAR HGB CONC 33 g/dl (31.0-36.0); MEAN CORPUSCULAR VOLUME 96 fL (80-96); MONOCYTES # (AUTO) 1.3 /CMM (0.1-1.30); MONOCYTES % (AUTO) 9.2 % (2.0-12.0); NEUTROPHILS # (AUTO) 9.4 /CMM (1.8-8.9); NEUTROPHILS % (AUTO) 66.9 % (43.0-81.0); PLATELET COUNT (AUTO) 60 /CMM (150-450); RED BLOOD CELL COUNT(AUTO) 2.24 MIL/uL (4.5-6.0); WHITE BLOOD COUNT (AUTO) 14.1 K/uL (4.3-11.0)
[2019-02-15 05:14] LABS: ALANINE AMINOTRANSFERASE 119 U/L (12-78); ALBUMIN 1.7 g/dL (3.4-5.0); ALKALINE PHOSPHATASE 109 U/L (46-116); ASPARTATE AMINOTRANSFERASE 447 U/L (15-37); BILIRUBIN,DIRECT 3.6 mg/dL (0.0-0.2); BILIRUBIN,TOTAL 4.3 mg/dL (0.2-1.0); CARBON DIOXIDE 24 mmol/L (21-32); CHLORIDE 111 mmol/L (98-107); CREATININE 4.1 mg/dL (0.6-1.3); GLUCOSE 167 mg/dL (74-106); MAGNESIUM 1.7 mg/dL (1.8-2.4); PHOSPHORUS 1.8 mg/dL (2.5-4.9); POTASSIUM 4.6 mmol/L (3.5-5.1); SODIUM SERUM 143 mmol/L (136-145); TOTAL PROTEIN, SERUM 4.9 g/dL (6.4-8.2); UREA NITROGEN, BLOOD 66 mg/dL (7-18)
[2019-02-15 05:34] LABS: CHOLESTEROL 51 mg/dL (<200); LDL 28 mg/dL (0-99); THYROID STIMULATING HORMONE 2.195 uIU/mL (0.358-3.74); TRIGLYCERIDES 67 mg/dL (30-150)
--- NOTE | 2019-02-15 05:36 | NUR ---
CONGRESSIONAL AIDE NOTES CALLED DR KHAN REGARDING PROTOCOL, OF BLOOD GLUCOSE <250MG/DL. PER DR KHAN START D5W @ 175CC/HR. REPORTED TROPONIN OF 1.[address] KAHN, REPEAT TROPONIN AFTER 6H.
[2019-02-15 05:46] LABS: HDL CHOLESTEROL < 10 mg/dL (40-60)
[2019-02-15 05:52] LABS: BAND % (MANUAL) 16 % (0.0-5.0); EOSINOPHILS % (MANUAL) 1 % (0-4); LYMPHOCYTES % (MANUAL) 16 % (16-48); METAMYELOCYTES % 1 % (0-0); MONOCYTES % (MANUAL) 10 % (0-11.0); NEUTROPHILS % (MANUAL) 56 (42-76)
[2019-02-15] MEDS: IV D5/ 0.9% NACL 1,000 ML IV PRN ×2 (05:54→12:08)
--- NOTE | 2019-02-15 07:12 | NUR ---
[employer]ATION INITIAL NOTES Rec'd pt asleep on bed, easily arousable, A/O x 3. Pt on R/A denies SOB. ST on telemonitor. Has NGT connected to LIS w/ no output noted. Has HUBER PICC line w/ insulin drip x 3 u/hr, Domingo drip x 100 mcg & D5NS x 175 cc/hr infusing well. Has R AC G18 & L AC G20 SL, both flushing well w/ no s/sx of infection/infiltration noted. Has FC draining to henrique UOP. Safety precaution in place w/ bed in lowest & locked pos. Call light placed w/in reach. Will cont to monitor & attend pt needs.
--- NOTE | 2019-02-15 07:28 | NUR ---
PRIMARY CARE MD NOTES NO ACUTE CHANGES NOTED DURING THE SHIFT. PROVIDED COMFORT AND SAFETY. WILL ENDORSE TO THE AM NURSE FOR CONTINUITY OF CARE.
[2019-02-15 08:30] LABS: CALCIUM, SERUM 6.4 mg/dL (8.5-10.1); CREATININE 4.2 mg/dL (0.6-1.3); MAGNESIUM 1.6 mg/dL (1.8-2.4); PHOSPHORUS 2.2 mg/dL (2.5-4.9); POTASSIUM 4.4 mmol/L (3.5-5.1)
--- NOTE | 2019-02-15 08:30 | NUR ---
Per Dr. Guzman may DC insulin drip & change it to SSI aggressive scale q6hr, DC BMP/Mg/P q4hr check, & call pharmacy to change neutraphos replacement PO to IV.
[2019-02-15] MEDS: PANTOPRAZOLE 40 MG VIAL IV SCH ×2 (08:46→16:59)
[2019-02-15] MEDS: Magnesium 1GM/D5W 100ML PREMIX 100 ML IV SCH ×2 (08:51→09:52)
[2019-02-15] MEDS ORDERED: DEXTROSE 50%-WATER 50 ML DISP.SYRIN IV PRN (09:00)
[2019-02-15] MEDS ORDERED: NEUTRA PHOS 1 POWD.PACKET PO ONE (09:00)
[2019-02-15] MEDS ORDERED: Sodium Phosphate 15 MMOL in IV D5W 250 ML IV ONE (09:00)
[2019-02-15] MEDS ORDERED: Magnesium 1GM/D5W 100ML PREMIX 1 G in PREMIX 1 EA IV SCH (09:00)
[2019-02-15 11:00] LABS: OCCULT BLOOD STOOL POSITIVE (NEGATIVE)
--- NOTE | 2019-02-15 11:39 | NUR ---
Endorsed care to Urszula MOULTON for ANTONY.
--- NOTE | 2019-02-15 11:40 | NUR ---
rn note received pt on bed from Savita MOULTON. pt aox3, on room air, sr/st on monitor, HR 100, NGT on LIS, patent and n place. 3 iv sites intact, in place. ivf running, neosynephrine increased due to low bp. Blood transfusing, no reaction noted, no fever, denies pain, girlfriend Angelica at bedside. safety measures in place, call light within reach. will continue to monitor.
[2019-02-15] MEDS: INSULIN REGULAR, HUMAN 100 UNIT/ML 3 ML VIAL SQ PRN ×3 (11:55→23:34)
--- NOTE | 2019-02-15 14:30 | NUR ---
rn note troponin level notified to dr Harper. no new orders.
[2019-02-15 15:15] LABS: HEMOGLOBIN 7.5 g/dL (13.5-17.5)
[2019-02-15] MEDS: MORPHINE SULFATE INJ 4 MG/ML DISP.SYRIN IV PRN (15:47)
[2019-02-15] MEDS ORDERED: VANCOMYCIN 0.75 GM in IV NS 0.9% 250 ML IV SCH (17:00)
--- NOTE | 2019-02-15 18:15 | NUR ---
rn note notified OFFICE MACHINE SERVICER Tre Carlson about decreased urine output, 350ml for the past 12 hr. he ordered D5LR at 200 ml/hr. will order and endorse to date night caregiver.
[2019-02-15] MEDS ORDERED: IV D5 LR 1,000 ML IV SCH (18:30)
--- NOTE | 2019-02-15 19:30 | NUR ---
YARD GENERAL CAR SUPERVISOR NOTE PATIENT RECEIVED IN BED WITH GIRLFRIEND AT BEDSIDE. PATIENT A/O X 4, APPEARS SLIGHTLY HARD OF HEARING. PATIENT DENIES CHEST PAIN/ SOB. INCREASED WORK OF BREATHING. PATIENT HR 89 ON MONITOR SR. PATIENT RUNNING ON VALDEAMR DRIP AT 200 MCG CURRENT BLOOD PRESSURE 106/56. PATIENT SATURATION 94 SKIN WARM AND DRY. DISCUSSED GOALS AND POC WITH PATIENT. PATIENT VERBALIZE UNDERSTANDING. CALL LIGHT WITHIN REACH SAFETY PRECAUTIONS IN PLACE RN WILL CONTINUE TO MONITOR.
[2019-02-15] MEDS ORDERED: PHENYLEPHRINE 10 MG/ML VIAL ONE (21:43)
[2019-02-15] MEDS: PHENYLEPHRINE 80 MG in IV NS 0.9% 250 ML IV PRN (22:01)
--- NOTE | 2019-02-15 23:36 | NUR ---
SUPERVISOR KNITTING NOTE PATIENT BLOOD SUGAR 444 ON FIRST TEST, REPEAT TEST 446. PER SLIDING SCALE 20 UNITS OF INSULINE GIVEN AND MD NOTIFIED.
--- NOTE | 2019-02-15 23:38 | NUR ---
TERMINAL MAKE UP OPERATOR NOTE PER MD KHAN, D/C THE D5LR AND START LR AT 200 MLS/HR.
[2019-02-16] VITALS (45 sets, daily range): BP systolic 82–126; BP diastolic 40–71
[2019-02-16] MEDS: IV LR 1000 ML 1,000 ML IV PRN ×5 (00:10→22:50)
[2019-02-16] MEDS: PIPERACILLIN /TAZOBACTAM 2.25 G in IV NS 0.9% 50 ML IV SCH ×3 (01:12→17:59)
[2019-02-16 04:30] LABS: BASOPHILS # (AUTO) 0.1 /CMM (0.0-0.2); BASOPHILS % (AUTO) 0.7 % (0.0-2.0); EOSINOPHILS % (AUTO) 1.4 % (0.0-6.0); HEMATOCRIT 22 % (39-51); HEMOGLOBIN 7.5 g/dL (13.5-17.5); LYMPHOCYTES # (AUTO) 2.5 /CMM (0.8-4.8); LYMPHOCYTES % (AUTO) 17.7 % (20.0-44.0); MEAN CORPUSCULAR HGB CONC 34 g/dl (31.0-36.0); MEAN CORPUSCULAR VOLUME 94 fL (80-96); MONOCYTES # (AUTO) 1.7 /CMM (0.1-1.30); MONOCYTES % (AUTO) 12.1 % (2.0-12.0); NEUTROPHILS # (AUTO) 9.6 /CMM (1.8-8.9); NEUTROPHILS % (AUTO) 68.1 % (43.0-81.0); RED BLOOD CELL COUNT(AUTO) 2.35 MIL/uL (4.5-6.0); WHITE BLOOD COUNT (AUTO) 14.1 K/uL (4.3-11.0)
[2019-02-16] MEDS ORDERED: PHENYLEPHRINE 10 MG/ML VIAL ONE (04:30)
[2019-02-16] MEDS: METOCLOPRAMIDE HCL 10 MG/2 ML VIAL IV SCH ×4 (04:50→22:45)
[2019-02-16] MEDS: PHENYLEPHRINE 80 MG in IV NS 0.9% 250 ML IV PRN ×3 (04:50→19:08)
[2019-02-16 04:53] LABS: PLATELET COUNT (AUTO) 34 /CMM (150-450)
[2019-02-16 05:06] LABS: ALBUMIN 1.6 g/dL (3.4-5.0); BILIRUBIN,TOTAL 4.8 mg/dL (0.2-1.0); CREATININE 4.3 mg/dL (0.6-1.3); MAGNESIUM 2.1 mg/dL (1.8-2.4); PHOSPHORUS 3.7 mg/dL (2.5-4.9); POTASSIUM 3.8 mmol/L (3.5-5.1); TOTAL PROTEIN, SERUM 4.9 g/dL (6.4-8.2)
--- NOTE | 2019-02-16 05:12 | NUR ---
STENO POOL SUPERVISOR NOTE PATIENT PLATELETS CAME BACK FROM LAB 34. RESULTS REPORTED TO MD KHAN WHO ORDERED 2 PLATELET TRANSFUSION
[2019-02-16 05:14] LABS: EOSINOPHILS % (MANUAL) 2 % (0-4); LYMPHOCYTES % (MANUAL) 17 % (16-48); MONOCYTES % (MANUAL) 12 % (0-11.0); NEUTROPHILS % (MANUAL) 69 (42-76)
[2019-02-16] MEDS: INSULIN REGULAR, HUMAN 100 UNIT/ML 3 ML VIAL SQ PRN ×4 (05:30→23:53)
[2019-02-16] MEDS: BLOOD SUGAR DIAGNOSTIC 1 EACH STRIP IN SCH ×4 (05:30→23:49)
--- NOTE | 2019-02-16 06:46 | NUR ---
SALES AND OPERATIONS TRAINEE NOTE PATIENT TOLERATED THE NIGHT WELL. NO ADVERSE EVENTS. PATIENT BP STABLE THROUGH THE NIGHT NO S/S OF RESP DISTRESS/ CARDAIC DISTRESS. PATIENT HR 70 SR ON THE MONITOR. PATIENT DENIES CHEST CHEST PAIN/ PAIN/ SOB. PATIENT CULP DRAINING TO GRAVITY. PICC LINE PATENT AND INTACT NO S/S OF INFECTION OR INFILTRATION. AWAITING PLATLETS FROM BLOOD BANK TO BE READY FOR TRANSFUSION. WILL ENDORSE POC TO AM FOR ANTONY.
[2019-02-16] MEDS: PANTOPRAZOLE 40 MG VIAL IV SCH ×2 (08:20→16:42)
--- NOTE | 2019-02-16 08:54 | NUR ---
RN NOTE: CALLED AND SPOKE WITH RUBEN FROM BLOOD BANK AND VERIFIED IF THE PLATELET ORDER FOR THE PATIENT WAS RECEIVED. PER RUBEN, SHE JUST RECEIVED THE ORDER AND WILL CALL BACK ONCE THE PLATELETS ARE READY. AWAITING FOR CALL BACK.
[2019-02-16 09:51] LABS: CALCIUM, SERUM 7.1 mg/dL (8.5-10.1); CREATININE 4.1 mg/dL (0.6-1.3); POTASSIUM 3.4 mmol/L (3.5-5.1)
[2019-02-16] MEDS ORDERED: NOREPINEPHRINE 16 MG in IV NS 0.9% 500 ML IV PRN (10:30)
[2019-02-16 16:19] LABS: D-DIMER 17.3 mg/L(FEU (0.17-0.50)
--- NOTE | 2019-02-16 17:20 | NUR ---
RN NOTE: NGT WAS REMOVED PER LISSETH PAN NP. PATIENT TOLERATED IT WELL.
--- NOTE | 2019-02-16 18:26 | NUR ---
RN NOTE: LISSETH PAN NP WAS INFORMED OF THE VENOUS DOPPLER STUDY AND KUB RESULT. NO NEW ORDER AT THIS TIME. PATIENT SIGNED THE INFORMED CONSENT FOR EGD.
--- NOTE | 2019-02-16 19:40 | NUR ---
RN NOTE: BEDSIDE REPORT WAS GIVEN TO RICHELLE MABRY RN FOR CONTINUITY OF CARE. PATIENT FINISHED THE TRANSFUSION OF 2 UNITS PLATELETS AND 1 UNIT PRBC. PATIENT REMAINED O NEOSYNEPHRINE DRIP. LISSETH PAN NP WAS PLANNING TO DO EGD IN AM. INFORMED CONSENT WAS SIGNED AND FILED TO PATIENT'S CHART. NO OVERT BLEEDING WAS NOTED. PATIENT HAD NO BOWEL MOVEMENT AND KEPT NPO.
--- NOTE | 2019-02-16 20:00 | NUR ---
TRAVEL PT NOTE PT IN BED AWAKE. A/O X 4, NO SOB, NO DISTRESS OR DISCOMFORT NOTED. DENIES PAIN. NO N/V NOTED. LITTLE WEAK ON AMBULATION. IVF LR INFUSING AT 200 ML/HR, AND VALDEMAR INFUSING AT 180 MCG EQUAL TO 34.83 ML/HR, NO S/S OF INFILTRATION NOTED. ON TELE MONITOR SR 82. F/C INTACT AND PATENT DRAINING YELLOWISH COLOR WITH SEDIMENTS URINE. SIDE RAILS UP X 2 AND CALL LIGHT WITHIN REACH. VSS. CONTINUE TO MONITOR HIM.
[2019-02-17] VITALS (47 sets, daily range): BP systolic 81–149; BP diastolic 41–100
[2019-02-17] MEDS: PIPERACILLIN /TAZOBACTAM 2.25 G in IV NS 0.9% 50 ML IV SCH ×3 (01:21→17:25)
[2019-02-17] MEDS: PHENYLEPHRINE 80 MG in IV NS 0.9% 250 ML IV PRN ×3 (02:23→17:22)
[2019-02-17] MEDS: IV LR 1000 ML 1,000 ML IV PRN ×2 (04:34→09:48)
[2019-02-17] MEDS: METOCLOPRAMIDE HCL 10 MG/2 ML VIAL IV SCH ×4 (05:10→22:55)
[2019-02-17 05:12] LABS: BASOPHILS % (AUTO) 0.3 % (0.0-2.0); EOSINOPHILS % (AUTO) 1.5 % (0.0-6.0); HEMATOCRIT 25 % (39-51); HEMOGLOBIN 8.5 g/dL (13.5-17.5); LYMPHOCYTES # (AUTO) 2.3 /CMM (0.8-4.8); LYMPHOCYTES % (AUTO) 15.8 % (20.0-44.0); MEAN CORPUSCULAR HGB CONC 33 g/dl (31.0-36.0); MEAN CORPUSCULAR VOLUME 93 fL (80-96); NEUTROPHILS # (AUTO) 9.9 /CMM (1.8-8.9); NEUTROPHILS % (AUTO) 68.4 % (43.0-81.0); PLATELET COUNT (AUTO) 83 /CMM (150-450); RED BLOOD CELL COUNT(AUTO) 2.74 MIL/uL (4.5-6.0); WHITE BLOOD COUNT (AUTO) 14.4 K/uL (4.3-11.0)
[2019-02-17 05:25] LABS: ALBUMIN 1.9 g/dL (3.4-5.0); BILIRUBIN,TOTAL 6.2 mg/dL (0.2-1.0); CREATININE 3.3 mg/dL (0.6-1.3); MAGNESIUM 2.1 mg/dL (1.8-2.4); PHOSPHORUS 3.5 mg/dL (2.5-4.9); POTASSIUM 3.3 mmol/L (3.5-5.1); TOTAL PROTEIN, SERUM 5.5 g/dL (6.4-8.2)
[2019-02-17] MEDS: BLOOD SUGAR DIAGNOSTIC 1 EACH STRIP IN SCH ×3 (06:04→17:47)
[2019-02-17] MEDS: INSULIN REGULAR, HUMAN 100 UNIT/ML 3 ML VIAL SQ PRN ×3 (06:14→17:51)
--- NOTE | 2019-02-17 06:26 | NUR ---
CURTAIN CUTTER NOTE PT IN BED AWAKE. NO DISTRESS OR DISCOMFORT NOTED. IVF LR INFUSING AT 200 ML/HR, NO S/S OF INFILTRATION NOTED. F/C INTACT AND PATENT DRAINING YELLOWISH COLOR URINE. ON TELE MONITOR SR HR 62. ALL NEEDS ATTENDED. SIDE RAILS UP X 2 AND CALL LIGHT WITHIN REACH. WILL ENDORSE TO DAY SHIFT NURSE FOR CONTINUE TO CARE.
--- NOTE | 2019-02-17 06:32 | NUR ---
SHAREPOINT NET DEVELOPER NOTE NEOSYNEPHRINE REMAIN INFUSING AT 180 MCG EQUAL TO 34.83 ML/HR, B/P REMAIN MAINTAINED PER MD ORDER. B/P AT THIS TIME 107/50 MAP 73. O2 SAT 99% HR 64.
--- NOTE | 2019-02-17 07:30 | NUR ---
RN NOTE: RECEIVED PATIENT IN BED, AWAKE, ALERT AND VERBALLY RESPONSIVE. ON O2 2L/MIN VIA NC SATURATING 96-100%. DENIED ANY PAIN AT THIS TIME. (R) UA PICC LINE NOTED IN PLACED WITH LR @ 200ML/HR AND NEOSYNEPHRINE @180MCG/MIN. CULP CATHETER IN PLACED WITH NADYA COLOR URINE DRAINING TO GRAVITY. SKIN WARM TO TOUCH. AFEBRILE. BED ALARMED AND LOCKED AT ALL TIMES. HOB ELEVATED. CALL LIGHT WITHIN REACH. NEEDS ANTICIPATED.
[2019-02-17] MEDS: PANTOPRAZOLE 40 MG VIAL IV SCH ×2 (08:17→16:08)
[2019-02-17 09:59] LABS: CALCIUM, SERUM 7.3 mg/dL (8.5-10.1); CREATININE 3.2 mg/dL (0.6-1.3); POTASSIUM 3.3 mmol/L (3.5-5.1)
[2019-02-17] MEDS ORDERED: IV D5/ 0.9% NACL 1,000 ML IV PRN ×3 (11:58)
--- NOTE | 2019-02-17 11:58 | NUR ---
RN NOTE: DR. MONSON WAS INFORMED ABOUT THE PATIENT'S CURRENT IV FLUID LR @ 200ML/HR AND THE PATIENT'S CURRENT STATUS NPO DUE TO THE POSSIBLE EGD TODAY. PER DR. MONSON, OK TO CHANGE IV FLUID TO D5LR @200ML/HR AND REGARDING THE PATIENT'S POTASSIUM 3.3 MD DOES NOT WANT TO DO ANY REPLACEMENT FOR TODAY BUT INSTEAD WILL RECHECK THE POTASSIUM LEVEL BY TOMORROW. PATIENT AND GIRLFRIEND DELFINO WERE MADE AWARE.
[2019-02-17] MEDS ORDERED: IV D5 LR 1,000 ML IV PRN (12:00)
[2019-02-17] MEDS: MORPHINE SULFATE INJ 4 MG/ML DISP.SYRIN IV PRN (12:20)
[2019-02-17] MEDS: IV D5/ 0.9% NACL 1,000 ML IV PRN ×2 (12:40→22:55)
--- NOTE | 2019-02-17 16:30 | NUR ---
RN NOTE: PATIENT WAS TRANSPORTED TO [facility] FOR MRCP VIA STRETCHER AND ACLS PROTOCOL. NEOSYNEPHRINE DRIP WAS GIVEN CONTINUOUSLY UPON TRANSPORT.
--- NOTE | 2019-02-17 17:15 | NUR ---
RN NOTE: PATIENT WAS RETURNED TO THE UNIT AND STILL INFUSING THE NEOSYNEPHRINE DRIP AND ACLS PROTOCOL. PATIENT TOLERATED THE PROCEDURE AND COMPLETED IT. AWAITING FOR RESULTS. NEOSYNEPHRINE DRIP WAS STOPPED DURING THE TIME OF PROCEDURE, BUT WAS RESUMED RIGHT AFTER IT WAS DONE.
--- NOTE | 2019-02-17 19:35 | NUR ---
RN NOTE: BEDSIDE REPORT WAS GIVEN TO PM SHIFT NURSE FOR CONTINUITY OF CARE. PATIENT REMAINED ON NEOSYNEPHRINE 200MCG/MIN. PATIENT HAD MRCP TODAY AND AN INFORMED CONSENT FOR EGD WAS SIGNED BY THE PATIENT. CULP CATHETER WAS CHANGED TODAY. (R) UA PICC LINE WAS NOTED IN PLACED INFUSING D5NS@125ML/HR AND THE NEOSYNEPHRINE. PATIENT WAS KEPT ON COMFORTABLE POSITION AND REMINDED HIM TO PUSH THE CALL LIGHT BUTTON FOR ASSISTANCE AT ALL TIMES. PATIENT UNDERSTOOD.
[2019-02-18] VITALS (70 sets, daily range): BP systolic 73–153; BP diastolic 32–103
[2019-02-18] MEDS: BLOOD SUGAR DIAGNOSTIC 1 EACH STRIP IN SCH ×4 (00:40→18:40)
[2019-02-18] MEDS: INSULIN REGULAR, HUMAN 100 UNIT/ML 3 ML VIAL SQ PRN ×4 (00:42→18:45)
[2019-02-18] MEDS: PIPERACILLIN /TAZOBACTAM 2.25 G in IV NS 0.9% 50 ML IV SCH ×3 (02:13→18:33)
[2019-02-18] MEDS: PHENYLEPHRINE 80 MG in IV NS 0.9% 250 ML IV PRN (02:18)
[2019-02-18 04:22] LABS: BASOPHILS % (AUTO) 0.3 % (0.0-2.0); EOSINOPHILS % (AUTO) 1.5 % (0.0-6.0); HEMATOCRIT 25 % (39-51); HEMOGLOBIN 8.2 g/dL (13.5-17.5); LYMPHOCYTES # (AUTO) 1.9 /CMM (0.8-4.8); LYMPHOCYTES % (AUTO) 16.7 % (20.0-44.0); MEAN CORPUSCULAR HGB CONC 33 g/dl (31.0-36.0); MEAN CORPUSCULAR VOLUME 94 fL (80-96); MONOCYTES # (AUTO) 2.4 /CMM (0.1-1.30); MONOCYTES % (AUTO) 20.7 % (2.0-12.0); NEUTROPHILS # (AUTO) 6.9 /CMM (1.8-8.9); NEUTROPHILS % (AUTO) 60.8 % (43.0-81.0); PLATELET COUNT (AUTO) 69 /CMM (150-450); RED BLOOD CELL COUNT(AUTO) 2.62 MIL/uL (4.5-6.0); WHITE BLOOD COUNT (AUTO) 11.4 K/uL (4.3-11.0)
[2019-02-18 04:45] LABS: ALBUMIN 1.7 g/dL (3.4-5.0); BILIRUBIN,TOTAL 6.4 mg/dL (0.2-1.0); CALCIUM, SERUM 7.8 mg/dL (8.5-10.1); CREATININE 2.9 mg/dL (0.6-1.3); PHOSPHORUS 2.7 mg/dL (2.5-4.9); POTASSIUM 3.2 mmol/L (3.5-5.1); TOTAL PROTEIN, SERUM 5.3 g/dL (6.4-8.2)
[2019-02-18 05:04] LABS: EOSINOPHILS % (MANUAL) 1 % (0-4); LYMPHOCYTES % (MANUAL) 15 % (16-48); MONOCYTES % (MANUAL) 15 % (0-11.0); NEUTROPHILS % (MANUAL) 69 (42-76)
[2019-02-18] MEDS: METOCLOPRAMIDE HCL 10 MG/2 ML VIAL IV SCH ×4 (05:29→23:17)
--- NOTE | 2019-02-18 07:04 | NUR ---
ETIOLOGIST NOTE NOTED WITH EPISODES OF CONFUSION AND REORIENTED PT TO ROOM AND ENVIRONMENT. PT REMAINED STABLE DURING SHIFT. NO ACUTE DISTRESS NOTED. REMAINS ON VALDEMAR DRIP TO MAINTAIN SBP >90. ALL NEEDS ATTENDED TO PROMPTLY. BED ALARM ENABLED. BED LOCKED IN PLACE. CALL LIGHT WITHIN REACH. WILL ENDORSE TO NEXT SHIFT FOR CONTINUITY OF CARE.
--- NOTE | 2019-02-18 07:30 | NUR ---
GIRLS TENNIS COACH NOTES RECEIVED BEDSIDE REPORT PATIENT A/O x2 NO SIGNS OR SYMPTOMS OF RESPIRATORY DISTRESS ON LTRS NASAL CANNULA NO C/O PAIN @ THIS TIME.SINUS ON MONITOR HUBER PICC RUNNING VALDEMAR@ 80 MCG AND IVF D5NS @ 125 ML.PATIENT REMAINS NPO FOR EGD PROCEDURE TODAY @ 1700 NO NAUSEA/VOMITING NOTED. CULP CATH DRAINING CLEAR YELLOW URINE. SAFETY PRECAUTIONS IN PLACE BED IN LOW AND LOCKED POSITION WITH ALARM SET. CALL LIGHT WITHIN REACH
[2019-02-18] MEDS: PANTOPRAZOLE 40 MG VIAL IV SCH ×2 (08:45→16:03)
[2019-02-18] MEDS: IV D5/ 0.9% NACL 1,000 ML IV PRN ×2 (08:46→18:33)
[2019-02-18] MEDS ORDERED: POTASSIUM CL. PREMIX PERIPHER. 50 ML IV SCH (09:53)
[2019-02-18] MEDS: LORAZEPAM INJ 2 MG/ML VIAL IV PRN ×2 (10:04→14:05)
[2019-02-18 10:11] LABS: CREATININE 2.5 mg/dL (0.6-1.3)
--- NOTE | 2019-02-18 10:16 | NUR ---
ATIVAN 0.5 MG GIVEN PT EXHIBITING SIGNS OF WITHDRAW
--- NOTE | 2019-02-18 10:39 | NUR ---
CRITICAL LAB CALLED GLUCOSE OF 456 MG/DL CHECKED WITH POC 150MG/DL
--- NOTE | 2019-02-18 12:00 | NUR ---
VALDEMAR ON HOLD PT MAINTAINING BP >90 AND MAP>65
--- NOTE | 2019-02-18 16:20 | NUR ---
PATIENT RETURNED FROM SURGERY. [facility]
[2019-02-18] MEDS ORDERED: FENTANYL PF 100MCG/2ML AMPUL ONE (16:43)
--- NOTE | 2019-02-18 17:08 | NUR ---
PT LEFT FOR EGD VIA [facility] ACLS PROTOCOL
--- NOTE | 2019-02-18 18:30 | NUR ---
ORDERS CARRIED OUT PATIENT EATING NO S/S N/V
--- NOTE | 2019-02-18 19:06 | NUR ---
REPORT ENDORSED TO NOC
--- NOTE | 2019-02-18 20:00 | NUR ---
NETWORK TECHNICIAN NOTE SPOKE WITH DR. PRYOR WITH ORDERS TO DOWNGRADE PT TO TELE. ORDERS NOTED AND CARRIED OUT.
--- NOTE | 2019-02-18 21:35 | NUR ---
CONSTRUCTION REPRESENTATIVE NOTES RECEIVED PT TRANSFER FROM ICU VIA WHEELCHAIR. PT A/O X2-3 AND ABLE TO MAKE NEEDS KNOWN. NO COMPLAINTS OF PAIN AT THIS TIME. RESPIRATIONS EVEN AND UNLABORED WITH NO S/S OF ACUTE DISTRESS OR SOB NOTED. PT ON 2L VIA NC TOLERATING WELL. PT NOTED WITH HUBER PICC LINE TRIPLE LUMEN INFUSING D5 NS @125CC/HR TOLERATING WELL. PT ON TELE MONITORING AT SINUS RHYTHM/SINUS TACH @ 90S - 120S. ORIENTED PT TO STAFF AND ROOM. SAFETY MEASURES IN PLACE WITH BED IN LOWEST LOCKED POSITION WITH SIDE RAILS UP X2. CALL LIGHT WITHIN REACH. WILL CONTINUE TO MONITOR.
--- NOTE | 2019-02-18 21:40 | NUR ---
BODY STRAIGHTENER NOTES PT REFUSED TO HAVE PICTURES TAKEN. PT REFUSED FOR WALLET TO BE PUT IN SAFE, PATIENT PREFERRED TO HAVE WITH HIM AT BEDSIDE. PT REFUSED TO HAVE CARDS COUNTED ON ITEM LIST. WILL CONTINUE TO MONITOR.
--- NOTE | 2019-02-18 21:47 | NUR ---
PURCHASING INTERNSHIP NOTE GAVE REPORT TO LUCIANO FOR CONTINUITY OF CARE. TRANSFERRED PT VIA WHEELCHAIR AND TOLERATED WELL. SAFELY AMBULATED TO ROOM 326-1. TRANSFERRED WITHOUT INCIDENT.
[2019-02-18] MEDS ORDERED: ZOLPIDEM TARTRATE 10 MG TABLET PO PRN (22:00)
[2019-02-19 00:01] VITALS: BP 119/70
[2019-02-19] MEDS: INSULIN REGULAR, HUMAN 100 UNIT/ML 3 ML VIAL SQ PRN ×4 (00:03→18:37)
[2019-02-19] MEDS: PIPERACILLIN /TAZOBACTAM 2.25 G in IV NS 0.9% 50 ML IV SCH ×3 (01:05→18:00)
[2019-02-19 04:00] VITALS: BP 147/65
[2019-02-19] MEDS: METOCLOPRAMIDE HCL 10 MG/2 ML VIAL IV SCH ×3 (05:17→16:30)
[2019-02-19] MEDS: BLOOD SUGAR DIAGNOSTIC 1 EACH STRIP IN SCH ×4 (05:33→17:26)
[2019-02-19 06:43] LABS: BASOPHILS % (AUTO) 0.2 % (0.0-2.0); EOSINOPHILS % (AUTO) 2.3 % (0.0-6.0); HEMATOCRIT 25 % (39-51); HEMOGLOBIN 8.5 g/dL (13.5-17.5); LYMPHOCYTES # (AUTO) 1.5 /CMM (0.8-4.8); LYMPHOCYTES % (AUTO) 12.7 % (20.0-44.0); MEAN CORPUSCULAR HGB CONC 33 g/dl (31.0-36.0); MEAN CORPUSCULAR VOLUME 95 fL (80-96); MONOCYTES # (AUTO) 3.3 /CMM (0.1-1.30); MONOCYTES % (AUTO) 27.2 % (2.0-12.0); NEUTROPHILS % (AUTO) 57.6 % (43.0-81.0); PLATELET COUNT (AUTO) 69 /CMM (150-450); RED BLOOD CELL COUNT(AUTO) 2.68 MIL/uL (4.5-6.0); WHITE BLOOD COUNT (AUTO) 12.1 K/uL (4.3-11.0)
[2019-02-19 07:10] LABS: MAGNESIUM 1.8 mg/dL (1.8-2.4); PHOSPHORUS 1.9 mg/dL (2.5-4.9)
--- NOTE | 2019-02-19 07:39 | NUR ---
MANAGER RECOVERY NOTES PT IN BED AWAKE AND ABLE TO MAKE NEEDS KNOWN. PT A/O X2-3 AND ABLE TO MAKE NEEDS KNOWN. NO COMPLAINTS OF PAIN AT THIS TIME. RESPIRATIONS EVEN AND UNLABORED WITH NO S/S OF ACUTE DISTRESS OR SOB NOTED THROUGHOUT SHIFT. PT ON 2L VIA NC TOLERATING WELL. PT NOTED WITH HUBER PICC LINE TRIPLE LUMEN SL. PT ON TELE MONITORING AT SINUS RHYTHM/SINUS TACH @ 90S - 120S. SAFETY MEASURES IN PLACE WITH BED IN LOWEST LOCKED POSITION WITH SIDE RAILS UP X2. CALL LIGHT WITHIN REACH. WILL ENDORSE TO ONCOMING NURSE FOR ANTONY.
[2019-02-19 08:00] VITALS: BP 126/71
[2019-02-19] MEDS: LORAZEPAM INJ 2 MG/ML VIAL IV PRN (08:19)
[2019-02-19 08:39] LABS: EOSINOPHILS % (MANUAL) 3 % (0-4); LYMPHOCYTES % (MANUAL) 11 % (16-48); MONOCYTES % (MANUAL) 17 % (0-11.0); NEUTROPHILS % (MANUAL) 69 (42-76)
[2019-02-19] MEDS: PANTOPRAZOLE 40 MG VIAL IV SCH ×2 (08:49→17:00)
[2019-02-19 09:32] LABS: CALCIUM, SERUM 7.6 mg/dL (8.5-10.1); CREATININE 2.6 mg/dL (0.6-1.3); POTASSIUM 3.2 mmol/L (3.5-5.1)
--- NOTE | 2019-02-19 12:00 | NUR ---
UPSET ABOUT PT. BEING SENT HOME TODAY,DR. KRAFT CALLED AND HE SPOKE TO AT LENGTH.
--- NOTE | 2019-02-19 12:30 | NUR ---
DEENA ALBRECHT UPTO SEE SHE DOES NOT WANTTO TAKE PT. HOME,RESOLVED AND AGREEABLE AFTER SPEAKING TO LEATHER FINISHER.
--- NOTE | 2019-02-19 12:45 | NUR ---
CULP CATH REMOVED.PT. INSTRUCTED TO CALL FOR HELP IF GETTING OOB.
[2019-02-19] MEDS: Potassium Phosphate meq 11 MEQ in IV NS 0.9% 100 ML IV SCH ×2 (13:17→14:50)
--- NOTE | 2019-02-19 13:30 | NUR ---
RN CALLED IN TO PT. RM. INADVERTENTLY PULLED OUT PICC LINE.PRESSURE DRESSING TO SITE.PT. A LITTLE CONFUSED,GOT UPTO BATHRM. TO HAVE BM.PRESSURE DRESSING TO SITE.
--- NOTE | 2019-02-19 13:35 | NUR ---
PT. GOT UP TO BATHRM.VOIDED AND HAD LRG. BM.
--- NOTE | 2019-02-19 14:30 | NUR ---
CALL OUT TO DR. KRAFT.RECEIVED ORDERS FOR ORAL MED TO REPLACE POTASSIUM PHOSPHATE.PT'S CALLED TO PROCESS LEAD PT. FOR DC TODAY.STATES SHE IS ON HER WAY.
[2019-02-19] MEDS ORDERED: NEUTRA PHOS 1 POWD.PACKET PO ONE (15:00)
--- NOTE | 2019-02-19 15:45 | NUR ---
PRESSURE DRESSING DRY AND INTACT.
--- NOTE | 2019-02-19 15:46 | NUR ---
PT. TO HAVE ORAL REPLACEMENT MED..
--- NOTE | 2019-02-19 15:55 | NUR ---
GIVEN NEUTRA PHOS.
[2019-02-19 16:00] VITALS: BP 110/52
--- NOTE | 2019-02-19 17:00 | NUR ---
PT. REFUSED DISCHARGE PHOTOS.
--- NOTE | 2019-02-19 18:51 | NUR ---
no afternoon or luz. iv meds given as pt. removed picc line. no iv access.
--- NOTE | 2019-02-19 18:58 | NUR ---
awaiting wive's arrival for discharge.
--- NOTE | 2019-02-19 19:20 | NUR ---
NOTIFIED BY JACQUARD PLATE MAKER THAT PT.WAS SEEN BY SECURITY DOWNSTAIRS AND WALKED OUTSIDE OF THE LOBBY.LEAD CUSTODIAN WENT DOWNSTAIRS AND FOUND PT. IN PARKING LOT AND BROUGHT HIM UPSTAIRS.
--- NOTE | 2019-02-19 19:35 | NUR ---
MS RN OPENING NOTES PATIENT IS IN BED AWAKE AND ALERT. A/O X2-3, VERBALLY RESPONSIVE AND ABLE TO MAKE NEEDS KNOWN. RESPIRATIONS EVEN AND UNLABORED WITH NO S/S OF ACUTE DISTRESS OR SOB NOTED THROUGHOUT SHIFT. NO COMPLAINTS OF PAIN AT THIS TIME. PATIENT IS ON ROOM AIR TOLERATING WELL. PT NOTED WITH NO IV LINE. SAFETY MEASURES ARE IN PLACE WITH BED IN LOWEST LOCKED POSITION WITH SIDE RAILS UP X2. CALL LIGHT WITHIN REACH. WILL CONTINUE MONITORING.
--- NOTE | 2019-02-19 19:55 | NUR ---
MS RN NOTES: CALLED PATIENT'S (DELFINO) TO ASK WHAT TIME SHE WILL BE PICKING UP THE PATIENT. FAMILY MEMBER SAID SHE IS ON THE WAY AND WILL GET TO [facility] IN 10 MINUTES.
--- NOTE | 2019-02-19 20:15 | NUR ---
MS RN NOTES: PATIENT LEFT WITH AT 2014. PRIVATE TRANSPORTATION PROVIDED BY . ALL DISCHARGE INFORMATIONS WERE GIVEN TO PATIENT AND . PATIENT REFUSED SKIN ASSESSMENT. NO DISCHARGE PHOTOS WERE TAKEN. VITALS SIGNS STABLE. TIM GREEN V ASSISTED PT DOWNSTAIRS VIA WHEELCHAIR. PATIENT LEFT ON STABLE CONDITION.
[2019-02-19] MEDS ORDERED: LEVOFLOXACIN (500MG) 500 MG TABLET PO SCH (21:00)
== END 2019-02-19 20:20 | disposition home health service (06) | DRG 241 ==
LOC: ER 04:13 → ICU 07:38 → TELE 02-18 21:45 → MED 02-19 16:17
PROVIDERS: ADMIT Nurse Practitioner Acute Care
PROC: B548ZZA Ultrasonography of Superior Vena Cava, Guidance (ICD-10-PCS; principal; 2019-02-14)
PROC: 02HV33Z Insertion of Infusion Device into Superior Vena Cava, Percutaneous Approach (ICD-10-PCS; principal; 2019-02-14)
PROC: 30233R1 Transfusion of Nonautologous Platelets into Peripheral Vein, Percutaneous Approach (ICD-10-PCS; principal; 2019-02-14)
PROC: 30233N1 Transfusion of Nonautologous Red Blood Cells into Peripheral Vein, Percutaneous Approach (ICD-10-PCS; principal; 2019-02-14)
PROC: 0DB78ZX Excision of Stomach, Pylorus, Via Natural or Artificial Opening Endoscopic, Diagnostic (ICD-10-PCS; 2019-02-18)
DX: K29.60 Other gastritis without bleeding (principal); N17.0 Acute kidney failure with tubular necrosis; I21.A1 Myocardial infarction type 2; J69.0 Pneumonitis due to inhalation of food and vomit; E43 Unspecified severe protein-calorie malnutrition; E11.43 Type 2 diabetes mellitus with diabetic autonomic (poly)neuropathy; R57.1 Hypovolemic shock; K31.84 Gastroparesis; D62 Acute posthemorrhagic anemia; K76.6 Portal hypertension; D68.9 Coagulation defect, unspecified; E11.10 Type 2 diabetes mellitus with ketoacidosis without coma; D69.59 Other secondary thrombocytopenia; E87.2 Acidosis; K29.80 Duodenitis without bleeding; D53.9 Nutritional anemia, unspecified; K31.9 Disease of stomach and duodenum, unspecified; K44.9 Diaphragmatic hernia without obstruction or gangrene; K70.11 Alcoholic hepatitis with ascites; E83.39 Other disorders of phosphorus metabolism; E83.42 Hypomagnesemia; E83.51 Hypocalcemia; E87.5 Hyperkalemia; F17.210 Nicotine dependence, cigarettes, uncomplicated; Z79.4 Long term (current) use of insulin; K70.31 Alcoholic cirrhosis of liver with ascites; K76.0 Fatty (change of) liver, not elsewhere classified; Z91.14 Patient's other noncompliance with medication regimen; K86.0 Alcohol-induced chronic pancreatitis; N18.9 Chronic kidney disease, unspecified; I12.9 Hypertensive chronic kidney disease with stage 1 through stage 4 chronic kidney disease, or unspecified chronic kidney disease; K31.89 Other diseases of stomach and duodenum; K21.0 Gastro-esophageal reflux disease with esophagitis; J98.11 Atelectasis; Z87.11 Personal history of peptic ulcer disease; F10.20 Alcohol dependence, uncomplicated; Z68.25 Body mass index [BMI] 25.0-25.9, adult; E88.09 Other disorders of plasma-protein metabolism, not elsewhere classified
CPT/HCPCS: 36415; 36600; 71045-TC; 74018; 74181-TC; 76705-TC; 76770-TC; 80048-TC; 80053-TC; 80061-TC; 80074; 80076-TC; 81000-TC; 82247-TC; 82248-TC; 82272-TC; 82728-TC; 82803-TC; 82962-TC; 83540-TC; 83605-TC; 83690-TC; 83735-TC; 84100-TC; 84443-TC; 84484-TC; 85025-TC; 85027-TC; 85045-TC; 85396; 85730-TC; 86706; 86850-TC; 86921-TC; 87040-TC; 87045-TC; 87081-TC; 87086-TC; 87340; 88305-TC; 88313-TC; 88342; 89055; 93307-TC; 93976-TC; A4216; A9563; C1751; C9113; G0378; J1815; J2060; J2270; J2370; J2405; J2543; J2704; J2765; J3010; J3370; J3475; J3490; J7030; J7040; J7042; J7050; J7060; J7120; P9016-BL; P9034-BL

== ENCOUNTER 2019-07-25 11:30 | Inpatient (IN) | payer MEDICAID ==
[2019-07-25] VITALS (23 sets, daily range): BP systolic 74–104; BP diastolic 22–61
[~2019-07-25] VITALS: Ht 180.3 cm; Wt 81.6 kg
[~2019-07-25 11:30] MED LIST changes: +FOLI5VIA2 PO; +MULT-439 PO
--- NOTE | 2019-07-25 11:45 | NUR ---
MARSHA FROM HOME TO ER BED 7. LETHARGIC AND DROWSY. BROUGHT IN FOR HYPERGLYCEMIA. PER EMS, BS READING WAS "HI". UPON ASSESSMENT, BS READING IS 575. PT ALREADY HAVE AN IV LINE ON L FA 18G. ARTIST BLACKSMITH AT BEDSIDE FOR LAB DRAW. EKG DONE. MD WAS AT BEDSIDE FOR EVAL. ORDERS RECEIVED NOTED AND CARRIED OUT..
[2019-07-25] MEDS ORDERED: IV NS 0.9% 1,000 ML BAG IV ONE ×2 (12:00→13:30)
--- NOTE | 2019-07-25 12:49 | NUR ---
SPOKE WITH NEISHANikita FOR PT UPDATES
[2019-07-25 12:53] LABS: BASOPHILS # (AUTO) 0.1 /CMM (0.0-0.2); BASOPHILS % (AUTO) 0.4 % (0.0-2.0); EOSINOPHILS % (AUTO) 0.2 % (0.0-6.0); LYMPHOCYTES # (AUTO) 1.4 /CMM (0.8-4.8); LYMPHOCYTES % (AUTO) 10.5 % (20.0-44.0); MEAN CORPUSCULAR HGB CONC 29 g/dl (31.0-36.0); MEAN CORPUSCULAR VOLUME 111 fL (80-96); MONOCYTES # (AUTO) 2.9 /CMM (0.1-1.30); MONOCYTES % (AUTO) 21.2 % (2.0-12.0); NEUTROPHILS # (AUTO) 9.1 /CMM (1.8-8.9); NEUTROPHILS % (AUTO) 67.7 % (43.0-81.0); WHITE BLOOD COUNT (AUTO) 13.4 K/uL (4.3-11.0)
[2019-07-25 12:59] LABS: ALBUMIN 2.1 g/dL (3.4-5.0); BILIRUBIN,DIRECT 2.9 mg/dL (0.0-0.2); BILIRUBIN,TOTAL 3.8 mg/dL (0.2-1.0); CALCIUM, SERUM 7.8 mg/dL (8.5-10.1); CREATININE 3.5 mg/dL (0.6-1.3); POTASSIUM 5.6 mmol/L (3.5-5.1); RED BLOOD CELL COUNT(AUTO) 1.41 MIL/uL (4.5-6.0); TOTAL PROTEIN, SERUM 5.5 g/dL (6.4-8.2)
[2019-07-25 13:01] LABS: HEMATOCRIT 16 % (39-51); HEMOGLOBIN 4.5 g/dL (13.5-17.5); PLATELET COUNT (AUTO) 44 /CMM (150-450)
--- NOTE | 2019-07-25 13:06 | NUR ---
PANEL ON-CALL PAGED
[2019-07-25 13:19] LABS: LYMPHOCYTES % (MANUAL) 17 % (16-48); MONOCYTES % (MANUAL) 16 % (0-11.0); NEUTROPHILS % (MANUAL) 67 (42-76)
[2019-07-25] MEDS ORDERED: FOLI0.4T2 PO (13:23)
--- NOTE | 2019-07-25 13:29 | NUR ---
CALLED LAB FOR TYPE AND SCREEN
[2019-07-25] MEDS ORDERED: INSULIN REGULAR, HUMAN 100 UNIT in IV NS 0.9% 100 ML IV PRN ×2 (13:30)
[2019-07-25] MEDS ORDERED: IV NS 0.9% 1,000 ML IV PRN ×3 (14:08→21:00)
[2019-07-25] MEDS ORDERED: CEFTRIAXONE 1 G in IV D5W 50 ML IV ONE (14:17)
[2019-07-25] MEDS ORDERED: PANTOPRAZOLE 40 MG VIAL IV ONE (14:30)
[2019-07-25] MEDS ORDERED: MORPHINE SULFATE INJ 2 MG/ML DISP.SYRIN IV PRN (14:30)
[2019-07-25] MEDS ORDERED: CEFTRIAXONE 1GM BAG (ER ONLY) 1 GM/50 ML PIGGYBACK IV ONE (14:30)
[2019-07-25] MEDS ORDERED: NITROGLYCERIN 0.4 MG/TAB BOTTLE SL PRN (14:30)
[2019-07-25] MEDS ORDERED: ONDANSETRON HCL/PF 4 MG/2 ML VIAL IVP PRN (14:30)
--- NOTE | 2019-07-25 15:07 | NUR ---
FOLLOWED UP WITH PHARMACY REGARDING MEDS.
[2019-07-25] MEDS ORDERED: CEFTRIAXONE 1 G VIAL ONE (15:29)
--- NOTE | 2019-07-25 15:43 | NUR ---
report given to christina short for manda.
--- NOTE | 2019-07-25 15:44 | NUR ---
US AT BEDSIDE
--- NOTE | 2019-07-25 16:20 | NUR ---
PT TRANSPORTED TO UNIT ON [facility] WITH EMT AND RN AT BEDSIDE W/ ACLS PROTOCOL. NAD NOTED DURINF TRANSPORT
--- NOTE | 2019-07-25 16:20 | NUR ---
BLOCK MACHINE OPERATOR: got pt from ER, full code by report, Covid neg.by report, Dx: DKA, GI bleed, A/Ox2, weak, no pain now, ST 100-110, SBP over 100, O2sat.over 94% on 4L nc, no voids by report since admitionblood/black BM+, HB 4.5, still pending PRBC transfusion, on insulin gtt 7 units continuously since/no order for rate, BG at 1530: 485/down, two PIVL 18,20
--- NOTE | 2019-07-25 16:25 | NUR ---
BUSINESS PROCESS ARCHITECT: ER nurse SAIGE Haynes reported: pt is not Covid19 case
--- NOTE | 2019-07-25 16:45 | NUR ---
CHIEF CRNA: BG 443 now, paged for order to specify Insulin drip rate, R.IV midline placed in
--- NOTE | 2019-07-25 17:19 | NUR ---
LEATHER TOOLER: started PRBC/tolerated well
--- NOTE | 2019-07-25 17:30 | NUR ---
ACCOUNT SERVICE ASSOCIATE: sent message tuse formula for insulin drip: BGx2/100 q1h
--- NOTE | 2019-07-25 17:35 | NUR ---
SECTION LEADER AND MACHINE SETTER: pt.doesn't want urinate, said: I am ok, no low abd.pain, denies f/c placement now
--- NOTE | 2019-07-25 17:50 | NUR ---
IMMIGRATION PARALEGAL: called/updated with pt.current condition, PRBC transfusion, IVF, VS: ST, SBP 88-94, BG and insulin gtt, troponin 0.455, no new orders
[2019-07-25] MEDS ORDERED: INSULIN REGULAR, HUMAN 100 UNIT in IV NS 0.9% 99 ML IV PRN ×2 (21:00)
[2019-07-25 21:29] LABS: OCCULT BLOOD STOOL POSITIVE (NEGATIVE)
[2019-07-25] MEDS: PANTOPRAZOLE 40 MG VIAL IV SCH (21:56)
--- NOTE | 2019-07-25 22:15 | NUR ---
CONTACTED PINKY ABOUT PATIENT SBP DROPPING TO THE 70'S. ORDER FOR 1LITER BOLUS AND TO INCREASE FLUID INTAKE OF NS AT 200CC/HR. SANDOSTATIN ORDERED TO RUN AT 25MCG/ WILL CONTINUE TO MONITOR.
[2019-07-25] MEDS ORDERED: NOREPINEPHRINE 4 MG/4 ML AMPUL IV ONE (23:38)
[2019-07-25] MEDS: NOREPINEPHRINE 8 MG in IV NS 0.9% 242 ML IV PRN (23:50)
[2019-07-26] VITALS (89 sets, daily range): BP systolic 26–239; BP diastolic 17–160
[2019-07-26] MEDS ORDERED: OCTREOTIDE 1,250 MCG in IV NS 0.9% 247.5 ML IV PRN ×2
[2019-07-26] MEDS ORDERED: OCTREOTIDE 50 MCG in IV NS 0.9% 50 ML IV ONE ×2
[2019-07-26 00:15] LABS: BASOPHILS # (AUTO) 0.1 /CMM (0.0-0.2); BASOPHILS % (AUTO) 0.5 % (0.0-2.0); EOSINOPHILS % (AUTO) 1.3 % (0.0-6.0); HEMATOCRIT 21 % (39-51); LYMPHOCYTES # (AUTO) 3.1 /CMM (0.8-4.8); LYMPHOCYTES % (AUTO) 15.9 % (20.0-44.0); MEAN CORPUSCULAR HGB CONC 30 g/dl (31.0-36.0); MEAN CORPUSCULAR VOLUME 107 fL (80-96); MONOCYTES # (AUTO) 2.3 /CMM (0.1-1.30); MONOCYTES % (AUTO) 11.6 % (2.0-12.0); NEUTROPHILS # (AUTO) 13.9 /CMM (1.8-8.9); NEUTROPHILS % (AUTO) 70.7 % (43.0-81.0); PLATELET COUNT (AUTO) 51 /CMM (150-450); WHITE BLOOD COUNT (AUTO) 19.7 K/uL (4.3-11.0)
[2019-07-26] MEDS ORDERED: OCTREOTIDE 500 MCG/ML VIAL ONE (00:34)
[2019-07-26 00:48] LABS: RED BLOOD CELL COUNT(AUTO) 1.92 MIL/uL (4.5-6.0)
[2019-07-26 00:50] LABS: HEMOGLOBIN 6.1 g/dL (13.5-17.5)
--- NOTE | 2019-07-26 02:45 | NUR ---
INSULIN DRIP D/C. PATIENT BS STABLE AT 84. CONTACTED SHAE VANCE ORDERS TO CHANGE FLUID TO D5NS TO RUN AT 200ML/HR AND TO CONTINUE TO MONITOR BS Q1H.
[2019-07-26] MEDS ORDERED: IV D5/ 0.9% NACL 1,000 ML IV ONE (03:00)
--- NOTE | 2019-07-26 03:00 | NUR ---
ICU/RN SHAE REYES AT BEDSIDE WITH PATIENT. ORDERS PLACED FOR ABG, 1 UNIT OF BLOOD, CULP TO BE INSERTED. WILL CONTINUE TO MONITOR PATIENT.
[2019-07-26 03:02] LABS: CALCIUM, SERUM 7.5 mg/dL (8.5-10.1); CREATININE 4.9 mg/dL (0.6-1.3); MAGNESIUM 2.1 mg/dL (1.8-2.4); POTASSIUM 4.8 mmol/L (3.5-5.1)
[2019-07-26 03:08] LABS: PHOSPHORUS 10.6 mg/dL (2.5-4.9)
[2019-07-26] MEDS ORDERED: IV D5/ 0.9% NACL 1,000 ML IV PRN (04:00)
[2019-07-26] MEDS ORDERED: Sodium Bicarbonate 100 MEQ in IV D5/ 0.9% NACL 1,000 ML IV PRN (05:00)
[2019-07-26 05:10] LABS: BAND % (MANUAL) 8 % (0.0-5.0); LYMPHOCYTES % (MANUAL) 21 % (16-48); METAMYELOCYTES % 2 % (0-0); MONOCYTES % (MANUAL) 8 % (0-11.0); MYELOCYTES % 1 % (0-0); NEUTROPHILS % (MANUAL) 60 (42-76)
[2019-07-26 05:14] LABS: ABG OXYGEN SATURATION 97.6 % (92.0-98.5); ABG PCO2 34.5 mmHg (35.0-45.0); ABG PH 6.948 (7.350-7.450); ABG PO2 166.1 mmHg (75.0-100.0); AaDO2 50.6 mmHg; COHb 0.7 % (0.5-1.5); MetHb 0.9 % (0.0-1.5); SITE, ABG Right Radial; VENT MODE, BG 4 LNC
[2019-07-26 05:26] LABS: BASOPHILS # (AUTO) 0.1 /CMM (0.0-0.2); BASOPHILS % (AUTO) 0.3 % (0.0-2.0); EOSINOPHILS % (AUTO) 2.1 % (0.0-6.0); LYMPHOCYTES # (AUTO) 3.1 /CMM (0.8-4.8); LYMPHOCYTES % (AUTO) 13.6 % (20.0-44.0); MEAN CORPUSCULAR HGB CONC 30 g/dl (31.0-36.0); MEAN CORPUSCULAR VOLUME 104 fL (80-96); MONOCYTES # (AUTO) 3.7 /CMM (0.1-1.30); MONOCYTES % (AUTO) 16.2 % (2.0-12.0); NEUTROPHILS # (AUTO) 15.5 /CMM (1.8-8.9); NEUTROPHILS % (AUTO) 67.8 % (43.0-81.0); WHITE BLOOD COUNT (AUTO) 22.8 K/uL (4.3-11.0)
[2019-07-26] MEDS ORDERED: SODIUM BICARBONATE SYR 50 MEQ/50 ML DISP.SYRIN ONE (05:31)
[2019-07-26] MEDS ORDERED: NOREPINEPHRINE 4 MG/4 ML AMPUL IV ONE (05:39)
[2019-07-26] MEDS: NOREPINEPHRINE 8 MG in IV NS 0.9% 242 ML IV PRN ×2 (05:47→09:08)
[2019-07-26 05:48] LABS: CALCIUM, SERUM 6.8 mg/dL (8.5-10.1); CREATININE 4.8 mg/dL (0.6-1.3); MAGNESIUM 1.9 mg/dL (1.8-2.4)
[2019-07-26 05:51] LABS: RED BLOOD CELL COUNT(AUTO) 1.93 MIL/uL (4.5-6.0)
[2019-07-26 05:53] LABS: HEMATOCRIT 20 % (39-51); PLATELET COUNT (AUTO) 43 /CMM (150-450)
[2019-07-26 05:54] LABS: PHOSPHORUS 8.7 mg/dL (2.5-4.9); THYROID STIMULATING HORMONE 3.756 uIU/mL (0.358-3.74)
--- NOTE | 2019-07-26 07:33 | NUR ---
AYAD RECEIVED. RECEIVED ODERS FOR BICARB TO RUN AT 100ML/HR. WILL CONTINUE TO MONITOR Addendum: 07/26/19 at 0739 by CECILIA WOODSON RN TIME CHANGE TO 0445 07/26/19
--- NOTE | 2019-07-26 07:35 | NUR ---
CURER ACID DRUM: pt is drowsy/lethargic, reactive by touch, Ox1, can answer periodically only Y/N, weak arms/legs activity+, pupils 4mm, reactive, O2sat. over 95%, no SOB, SR, on Levophed 0.6 mcg/kg/m, SBP 88, increased to 0.7, getting [id number] D5NS@100ml/h, Sandostatin gtt, 3d PRBC unit/no reactions by report, BG over 60/below 120, melena x2 over night by report, f/c in/anuric, T95.2/warming measures applied, night nurse spoke with SUJATHA Calle around 05.00/updated with labs, ABG, meds, new orders+
--- NOTE | 2019-07-26 07:36 | NUR ---
SBP CONTINUES TO BE LOW AT 60'S. CONTACTED SHAE VANCE ORDER FOR LEVOPHED TO MAINTAIN SBP ABOVE 90. Addendum: 07/26/19 at 0738 by CECILIA WOODSON RN CHANGE TIME TO 2350 07/25/19
--- NOTE | 2019-07-26 07:42 | NUR ---
ICU/RN CLOSING PATIENT IN BED, CONTINUES TO BE DROWSY AND LETHARGIC BUT ABLE TO STATE NAME AND LOCATION. PATIENT IS ON 4L OF O2 WITH NASAL CANNULA WITH SPO2 BETWEEN 91-95%. PATIENT ON LEVOPHED AT 0.06MCG/KG/MIN, BICARB AT 100CC/ML, AND SANDOSTATIN RUNNING AT 25MCG. PATIENT IS CURRENTLY RECEIVING BLOOD TRANSFUSION WITH NO SIGN OF COUNTER INTERACTIONS. FC IN PLACE WITH NO VISIBLE OUTPUT. ALL SAFETY PRECAUTIONS HAVE BEEN APPLIED. ALL NEEDS MET. ENDORSED PATIENT TO MORNING SHIFT NURSE FOR ANTONY.
--- NOTE | 2019-07-26 07:50 | NUR ---
PROFESSIONAL MODEL: 3d PRBC given/tolerated well
--- NOTE | 2019-07-26 08:00 | NUR ---
TYPEWRITER RIBBON WINDER: unable to place GT/pt refused
[2019-07-26] MEDS ORDERED: ASPIRIN EC 81 MG TABLET.DR PO SCH (09:00)
[2019-07-26] MEDS ORDERED: PANTOPRAZOLE 40 MG VIAL IV SCH (09:00)
--- NOTE | 2019-07-26 09:12 | NUR ---
MARKET RESEARCHER: SBP below 90, unable to reach BP/applied 3 BP cuffs, increased Levophed gtt to max 1 mcg/kg/m, waiting ABG
[2019-07-26] MEDS ORDERED: EPOETIN ALFA (40,000 UNIT) 40,000 UNIT/ML VIAL SQ ONE (09:30)
[2019-07-26] MEDS ORDERED: Sodium Bicarbonate 150 MEQ in IV 1/2NS 1000 ML 1,000 ML IV PRN (09:30)
[2019-07-26] MEDS: SEVELAMER CARBONATE 0.8 GM POWD.PACK GT SCH ×3 (09:30→17:40)
[2019-07-26 09:31] LABS: ABG BASE EXCESS -26.9 mmol/L; ABG OXYGEN SATURATION 97.5 % (92.0-98.5); ABG PCO2 20.5 mmHg (35.0-45.0); ABG PH 6.906 (7.350-7.450); ABG PO2 159.5 mmHg (75.0-100.0); AaDO2 44.7 mmHg; COHb 0.3 % (0.5-1.5); O2Hb 96.2 % (94.0-97.0); SITE, ABG Right Radial; VENT MODE, BG N/C 4LPM
--- NOTE | 2019-07-26 09:40 | NUR ---
COMPUTER FORENSICS TECHNICIAN: is in room, notified re pt history, current status, VS, I/O, ABG, Levophed max gtt, Bicard IVF, Protonix gtt, labs, meds, see new orders
[2019-07-26] MEDS: PANTOPRAZOLE 40 MG VIAL IV SCH (09:57)
[2019-07-26] MEDS ORDERED: SODIUM BICARBONATE SYR 50 MEQ/50 ML DISP.SYRIN IV ONE ×4 (10:00→18:49)
[2019-07-26] MEDS ORDERED: SODIUM POLYSTYRENE SULF. PWD 15 GM UDC PO ONE (10:00)
--- NOTE | 2019-07-26 10:07 | NUR ---
SPECIAL SERVICES DIRECTOR: called pharmacy, updated with meds, orders
[2019-07-26 10:12] LABS: IRON, SERUM 31 ug/dl (50-175); TOTAL IRON BINDING CAPACITY 104 ug/dl (250-450)
--- NOTE | 2019-07-26 10:20 | NUR ---
MILK PASTEURIZER: max of Levophed gtt dose, paged /ordered Domingo gtt, updated with BG, continue accuV q4h
[2019-07-26] MEDS ORDERED: PHENYLEPHRINE 100 MG in IV NS 0.9% 240 ML IV PRN (10:30)
--- NOTE | 2019-07-26 10:40 | NUR ---
LABEL DESIGNER: updated with all above, ordered: NS 1L bolus now
[2019-07-26] MEDS: NOREPINEPHRINE 32 MG in IV NS 0.9% 242 ML IV PRN ×2 (10:57→14:29)
[2019-07-26] MEDS ORDERED: IV NS 0.9% 1,000 ML IV ONE (11:00)
--- NOTE | 2019-07-26 11:30 | NUR ---
DRY CELL TESTER: unable to place in PICC into L.arm/so rigid, all drips running via R.arm midline, PIVL
[2019-07-26] MEDS ORDERED: HEPARIN SODIUM, PORCINE 1,000 UNIT/ML VIAL IV ONE (12:00)
[2019-07-26] MEDS ORDERED: EPOETIN ALFA (20,000 UNIT) 20,000 UNIT/ML VIAL SQ ONE (12:00)
--- NOTE | 2019-07-26 12:20 | NUR ---
SALESPERSON WOMEN'S HATS: BG 33, ordered D50-50 IV x1, switch 1/2NS with 150meq bicarb to D5 1/2 NS with 150 meq bicarb, same rate, repeat ABG in 3 hrs
[2019-07-26 12:22] LABS: ABG BASE EXCESS -26.4 mmol/L; ABG OXYGEN SATURATION 95.9 % (92.0-98.5); ABG PCO2 21.8 mmHg (35.0-45.0); ABG PH 6.913 (7.350-7.450); ABG PO2 126.8 mmHg (75.0-100.0); AaDO2 104.6 mmHg; COHb 0.9 % (0.5-1.5); MetHb 1.3 % (0.0-1.5); O2Hb 93.8 % (94.0-97.0); SITE, ABG Left Femoral; VENT MODE, BG nasal cannula
[2019-07-26] MEDS ORDERED: DEXTROSE 50%-WATER 50 ML DISP.SYRIN IVP ONE ×2 (12:30→16:15)
[2019-07-26] MEDS ORDERED: Sodium Bicarbonate 150 MEQ in IV D5/0.45 NACL 1,000 ML IV PRN (12:45)
--- NOTE | 2019-07-26 12:45 | NUR ---
DIRECTOR OF SUSTAINABILITY: Dx included GI bleed, NPO status, paged : ok to place in NGT
[2019-07-26 12:50] LABS: BAND % (MANUAL) 19 % (0.0-5.0); LYMPHOCYTES % (MANUAL) 18 % (16-48); MONOCYTES % (MANUAL) 3 % (0-11.0); NEUTROPHILS % (MANUAL) 60 (42-76)
[2019-07-26 12:55] LABS: CALCIUM, SERUM 7.2 mg/dL (8.5-10.1); CREATININE 5.3 mg/dL (0.6-1.3)
--- NOTE | 2019-07-26 13:20 | NUR ---
@ 1320 PT. INTUBATED BY MOHAN ESCOBAR FOR AIRWAY PROTECTION. INTUBATED WITH 7.5 ET TUBE SECURED @ 27 CM LIPLINE. CO2 DETECTOR CHANGED TO YELLOW COLOR ON POST INTUBATION WITH SYMMETRICAL CHEST RISE. VENT SETTINGS BELOW PER DR. BRIONES: AC 26 VT 600 FIO2 60% PEEP +5 BREATH SOUNDS COARSE RHONCHI BILATERAL, SXN LARGE AMNT DARK BROWN WITH BLOOD SECRETIONS. VENT PLUGGED INTO RED OUTLET WITH ALARMS ON AND FUNCTIONING. AMBUBAG @ BEDSIDE. Addendum: 07/26/19 at 1402 by HERSON KASPER RT Amended: Links added.
--- NOTE | 2019-07-26 13:30 | NUR ---
HISTOTECHNICIAN: pt is coded d/t pulseless activity with pusle return activity after one Epi dose, intubated, notified, see new orders
[2019-07-26 14:00] LABS: APPEARANCE,URINE CLEAR (CLEAR); BILIRUBIN,URINE SMALL (NEGATIVE); BLOOD, URINE MODERATE Ery/uL (NEGATIVE); COLOR,URINE YELLOW (YELLOW); KETONES,URINE TRACE (NEGATIVE); LEUKOCYTE ESTERASE ,URINE NEGATIVE (NEGATIVE); NITRITE, URINE NEGATIVE (NEGATIVE); PH,URINE 5.5 (5.0-8.0); PROTEIN,URINE 100 mg/dl (NEGATIVE); UGLUCOSE 100 MG/DL mg/dL (NEGATIVE); UROBILINOGEN,URINE 0.2 EU/dL (0.2)
[2019-07-26] MEDS ORDERED: PROPOFOL 100 ML IV PRN (14:00)
--- NOTE | 2019-07-26 14:15 | NUR ---
PROCESS CONTROL SPECIALIST: spoke with pt., sister, notified re pt current condition, for possible code status change, waiting pt father answer
[2019-07-26 14:40] LABS: BACTERIA,URINE Few /HPF (None Seen); SQUAMOUS EPITHELIAL CELL,UR Few /HPF (None Seen); WBC,URINE 0-2 /HPF (0-3)
[2019-07-26 14:41] LABS: URINE AMORPHOUS URATE Few /HPF (None Seen)
[2019-07-26] MEDS ORDERED: VASOPRESSIN INJ 40 UNIT in IV NS 0.9% 38 ML IV PRN (14:50)
[2019-07-26 14:51] LABS: ABG BASE EXCESS -26.3 mmol/L; ABG OXYGEN SATURATION 81.7 % (92.0-98.5); ABG PCO2 37.9 mmHg (35.0-45.0); ABG PH 6.815 (7.350-7.450); ABG PO2 76.3 mmHg (75.0-100.0); AaDO2 598.8 mmHg; COHb 0.5 % (0.5-1.5); MetHb 1.5 % (0.0-1.5); O2Hb 80.1 % (94.0-97.0); PEEP,BG 5 cm H2O; SITE, ABG Left Femoral; VT, ABG 600 mL
--- NOTE | 2019-07-26 14:55 | NUR ---
[employer] BPM ARCHITECT: updated: MAx of doses Love, Domingo gtts now, SBP 80-90, HR 85-105, Lactic acid 27.0, K= 7.0, ordered: start Vasopressin gtt, one x PRBC unit
--- NOTE | 2019-07-26 15:02 | NUR ---
vent changes below per dr. faith: ac 32 vt 650 Addendum: 07/26/19 at 1503 by HERSON KASPER RT Amended: Links added.
--- NOTE | 2019-07-26 15:10 | NUR ---
VACUUM METALIZER OPERATOR: updated with ABG, changed vent setting, ordered 2 amp Bicarb IVP
[2019-07-26] MEDS ORDERED: SUCCINYLCHOLINE CHLORIDE 20 MG/ML VIAL IV ONE (15:28)
[2019-07-26] MEDS ORDERED: FEE EMEERGENCY 1 MIN EA MC ONE ×2 (15:28→18:49)
--- NOTE | 2019-07-26 15:46 | NUR ---
NONPROFIT DIRECTOR: started NGT to LIS: got 300ml blood drain, called to pharmacy to get VAsopressin gtt bag
--- NOTE | 2019-07-26 16:30 | NUR ---
DIRECTOR CLIENT SERVICES: BG 54, paged
--- NOTE | 2019-07-26 16:45 | NUR ---
FIELD ARTILLERY OPERATIONS MAN: dextrose 50%-50ml IVP given, getting D51/2NS with 3 amp Bicarb @125ml/h, accuV q4h
[2019-07-26 17:12] LABS: ABG BASE EXCESS -24.4 mmol/L; ABG OXYGEN SATURATION 97.3 % (92.0-98.5); ABG PCO2 28.7 mmHg (35.0-45.0); ABG PH 6.928 (7.350-7.450); ABG PO2 171.2 mmHg (75.0-100.0); AaDO2 513.1 mmHg; COHb 0.6 % (0.5-1.5); MetHb 1.6 % (0.0-1.5); O2Hb 95.2 % (94.0-97.0); PEEP,BG 5 cm H2O; SITE, ABG Other; VT, ABG 650 mL
--- NOTE | 2019-07-26 17:30 | NUR ---
ASSISTANT BOOKKEEPER: BG 88 now, getting PRBC, AfiaCOIL STRAPPER, HD nurse updated with all above
[2019-07-26] MEDS ORDERED: CALCIUM CHLORIDE 1,000 MG/10 ML DISP.SYRIN IV ONE ×2 (17:34→18:49)
[2019-07-26] MEDS ORDERED: EPINEPHRINE (1:10,000) SYRINGE 1 MG/10 ML DISP.SYRIN IVP ONE ×2 (17:34→18:49)
--- NOTE | 2019-07-26 17:40 | NUR ---
PRINTED CIRCUIT BOARD PANELS TRIMMER: ABG done x3 after intubation, notified , got new orders for vent setting changes for RT
--- NOTE | 2019-07-26 17:45 | NUR ---
DATA WAREHOUSE ANALYST: reported : pt. current status, all max rate pressors drips, Bicarb IVF, Sandostatin gtt, labs, PRBC transfusions, NGT to LIS coffee ground suction amount, ABG
--- NOTE | 2019-07-26 18:00 | NUR ---
EDGER TECHNICIAN: paged GI for consult per request
--- NOTE | 2019-07-26 18:08 | NUR ---
@ 1808 pt. coded and immediate CPR performed. Pt. is successfully revive. Addendum: 07/26/19 at 1822 by HERSON KASPER RT Amended: Links added.
--- NOTE | 2019-07-26 18:28 | NUR ---
vent changes below per dr. faith: vt 700 ml Addendum: 07/26/19 at 1828 by HERSON KASPER RT Amended: Links added.
--- NOTE | 2019-07-26 19:10 | NUR ---
DRAGLINE MECHANIC: pt is coded 4 times per last hour, 3 times d/t pulseless, 1 time VT, max of Levo, Domingo, Vasopressin gtts, Kiran rowley, were in with HD cath placement and 2 codes, ER MD were in with 2 codes, 19.00 ER MD pronounce , notified, pt. notified, full report given to SAIGE Garnett
--- NOTE | 2019-07-26 19:50 | NUR ---
Called [facility] to report spoke to [facility] considering body for donation. Case # [id number].
--- NOTE | 2019-07-26 20:00 | NUR ---
Called family again to verify next of kin's name and relation to the patient .Family was notified of patient's by Derick MOULTON. Spoke to Luís Fuentes who is patient's according to her.
--- NOTE | 2019-07-26 20:35 | NUR ---
Body taken down by security to the [facility].
== END 2019-07-26 18:50 | disposition expired | DRG 420 ==
LOC: ER 11:32 → ICU 14:03
PROC: 05HY33Z Insertion of Infusion Device into Upper Vein, Percutaneous Approach (ICD-10-PCS; principal; 2019-07-25)
PROC: 30233N1 Transfusion of Nonautologous Red Blood Cells into Peripheral Vein, Percutaneous Approach (ICD-10-PCS; principal; 2019-07-25)
PROC: B549ZZA Ultrasonography of Inferior Vena Cava, Guidance (ICD-10-PCS; 2019-07-26)
PROC: 5A12012 Performance of Cardiac Output, Single, Manual (ICD-10-PCS; 2019-07-26)
PROC: 06H033Z Insertion of Infusion Device into Inferior Vena Cava, Percutaneous Approach (ICD-10-PCS; 2019-07-26)
PROC: 0BH18EZ Insertion of Endotracheal Airway into Trachea, Via Natural or Artificial Opening Endoscopic (ICD-10-PCS; 2019-07-26)
PROC: 5A1935Z Respiratory Ventilation, Less than 24 Consecutive Hours (ICD-10-PCS; 2019-07-26)
DX: E11.10 Type 2 diabetes mellitus with ketoacidosis without coma (principal); J96.00 Acute respiratory failure, unspecified whether with hypoxia or hypercapnia; N17.0 Acute kidney failure with tubular necrosis; I21.A1 Myocardial infarction type 2; D68.9 Coagulation defect, unspecified; D69.6 Thrombocytopenia, unspecified; N18.4 Chronic kidney disease, stage 4 (severe); E87.2 Acidosis; E11.22 Type 2 diabetes mellitus with diabetic chronic kidney disease; E87.5 Hyperkalemia; E78.5 Hyperlipidemia, unspecified; Z79.4 Long term (current) use of insulin; K76.6 Portal hypertension; K31.89 Other diseases of stomach and duodenum; E11.43 Type 2 diabetes mellitus with diabetic autonomic (poly)neuropathy; K31.84 Gastroparesis; K70.30 Alcoholic cirrhosis of liver without ascites; K86.89 Other specified diseases of pancreas; Z87.11 Personal history of peptic ulcer disease; K76.0 Fatty (change of) liver, not elsewhere classified; I12.9 Hypertensive chronic kidney disease with stage 1 through stage 4 chronic kidney disease, or unspecified chronic kidney disease; F17.210 Nicotine dependence, cigarettes, uncomplicated; E78.00 Pure hypercholesterolemia, unspecified; D53.9 Nutritional anemia, unspecified; K92.2 Gastrointestinal hemorrhage, unspecified; I25.2 Old myocardial infarction; Z91.19 Patient's noncompliance with other medical treatment and regimen
CPT/HCPCS: 36415; 36600; 71045-TC; 80048-TC; 80061-TC; 80076-TC; 81000-TC; 82010-TC; 82272-TC; 82803-TC; 82962-TC; 83540-TC; 83605-TC; 83735-TC; 83880; 84100-TC; 84443-TC; 84484-TC; 85025-TC; 86850-TC; 86921-TC; 87081-TC; 93307-TC; 94002-TC; A4216; C1750; C9113; G0378; J0171; J0330; J0696; J0885; J1644; J1815; J2354; J2370; J3490; J7030; J7042; J7050; J7060; P9016-BL